=== PATIENT | female | born 1995 | race Two or more races ===

== ENCOUNTER 2020-07-22 05:06 | Emergency (ER) | payer OTHER, SELFPAY ==
[2020-07-22 05:12] VITALS: BP 115/72; PULSE 85; RESP 16; TEMP 36.9; O2SAT 99; BMI 23.8
--- NOTE | 2020-07-22 05:38 | ED_ITS ---
HPI - Nausea/Vomiting/Diarrhea General Chief complaint: Abdominal Pain Stated complaint: n/v/d Time Seen by Provider: 07/22/20 05:20 Source: patient Mode of arrival: EMS Limitations: no limitations History of Present Illness HPI Narrative: This is a 24-year-old female who presents via EMS for complaints of nausea, vomiting, diarrhea for the past 2 days and states she is currently on her menstrual period and denies any urinary pain/ burning /frequency, fevers, chills, shortness of breath, chest pain / palpitations. She does complain of suffering from anxiety. Related Data Allergies Allergy/AdvReac Type Severity Reaction Status Date / Time CHICKEN NUGGETS/PATTIES Allergy Mild HIVES Uncoded 06/04/20 16:12 CHEESE CAKE Allergy Unknown HIVES Uncoded 06/04/20 16:12 Review of Systems Review of Systems: Pertinent positives and negatives as stated in HPI 10 point review of systems is otherwise negative. PMFSH Past Medical History Source: nursing notes reviewed Medical History Anxiety Social History Social History Advance Directives: No Advance Directives Information Provided: No Physical Exam Vital Signs: Vital Signs: Vital Signs Temp Pulse Resp BP Pulse Ox 07/22/20 06:00 85 18 115/72 97 07/22/20 05:12 98.4 F 85 16 115/72 99 Body Mass Index 23.8 VITAL SIGNS: Reviewed. GENERAL: Well developed, well nourished, in no acute distress. HEAD: Normocephalic/atraumatic, EYES: PERRLA, EOMI intact without pain, no nystagmus/pallor/icterus noted EARS: Ext canals without abnormality, TMs non-bulging and non-erythematous NOSE: Nares patent bilateral OROPHARYNX: no oral lesions noted, posterior pharynx clear and non-erythematous without noted tonsillar enlargement/erythema/exudates NECK: Supple, no adenopathy LUNGS: Normal breath sounds. No adventitious sounds or accessory muscle use. SpO2<99> CARDIOVASCULAR: Regular rate and rhythm without noted murmurs, no JVD or lower extremity edema. ABDOMEN: Soft, non-tender, non-distended with bowel sounds. No rigidity. No guarding. No palpable masses or hernias noted MUSCULOSKELETAL: No tenderness, deformities, or effusions noted on gross inspection. EXTREMITIES: No cyanosis, clubbing or edema. SKIN: Inspection of the skin reveals no rashes, ulcerations, jaundice, pallor, or petechiae. NEUROLOGIC: Alert and oriented x 4. Strength and sensation to light touch were grossly intact x 4. Course Course Course Narrative: This is a 24-year-old female with history and clinical presentation consistent for possible gastroenteritis and doubt appendicitis, diverticulitis, cholecystitis. Will stain labs, urine , urinalysis and provide IV fluid resuscitation as well as antiemetics. On review of all investigations there are no acute findings and urine is negative as well as urinalysis being negative for infection. On re- evaluation patient states she is feeling better and is tolerating liquids and solids. MDM - Nausea/Vomiting/Diarrhea Lab Data Result diagrams: 07/22/20 05:47 07/22/20 05:47 Labs: Lab Results 07/22/20 07/22/20 07/22/20 Range/Units 05:47 05:47 05:47 WBC 3.5 L (4.8-10.8) X10*3/uL RBC 3.90 L (4.20-5.50) X10*6/uL Hgb 11.7 L (12.0-16.0) g/dl Hct 36.3 L (37-47) % MCV 93.1 (80-98) fL MCH 30.0 (27.0-33.0) pg MCHC 32.2 (31.0-35.0) g/dl RDW 14.3 (11.0-16.0) % Plt Count 222 (160-400) X10*3/uL MPV 10.7 (9.4-12.3) fL Immature Gran % (Auto) 0.3 (0.0-0.4) % Neut % (Auto) 45.7 (45-73) % Lymph % (Auto) 42.7 H (20-40) % [place] % (Auto) 8.1 (2-11) % Eos % (Auto) 2.3 (0-4) % Baso % (Auto) 0.9 (0-2) % Lymph # (Auto) 1.5 (1.2-4.9) X10*3/uL [place] # (Auto) 0.3 (0.1-1.2) X10*3/uL Eos # (Auto) 0.1 (0.0-0.4) X10*3/uL Baso # (Auto) 0.0 (0.0-0.2) X10*3/uL Abs Immat Gran (auto) 0.01 (0.00-0.03) X10*3/uL Absolute Neuts (auto) 1.6 L (2.0-8.3) X10*3/uL Absolute Nucleated RBC 0.000 (0.0-0.012) X10*3/uL Nucleated RBC % (auto) 0.0 (0.0-0.2) /100WBC Sodium 141 (135-145) mmol/L Potassium 3.8 (3.3-5.1) mmol/l Chloride 107 (96-108) mmol/L Carbon Dioxide 25 (22-29) mmol/L Anion Gap 13 (12-20) BUN 13 (9-16) mg/dL Creatinine 0.74 (0.5-1.4) mg/dL Estim Creat Clear Calc 103.6 Estimated GFR > 60 Random Glucose 95 (60-115) mg/dL Calcium 8.2 L (8.4-10.2) mg/dL Total Bilirubin 0.3 (0.0-1.0) mg/dL AST 15 (5-31) U/L ALT 13 (0-31) U/L Alkaline Phosphatase 42 (39-117) U/L Total Protein 6.6 (6.5-8.0) g/dL Albumin 4.1 (3.5-5.0) g/dL Urine Color YELLOW Urine Appearance HAZY Urine pH 6.0 (5.0-8.0) Ur Specific [place] >= 1.030 H (1.005-1.025) Urine Protein NEG (NEG-TRACE) MG/DL Urine Glucose (UA) NEG (NEG) MG/DL Urine Ketones NEG (NEG) MG/DL Urine Blood 2+ H (NEG) Urine Nitrite NEG (NEG) Ur Leukocyte Esterase NEG (NEG) Urine RBC 1-4 (0) /HPF Urine WBC 0-2 (0-4) /HPF Ur Squamous Epith Cells 1+ /LPF Urine Bacteria NONE /LPF Urine Mucus 2+ /LPF Urine Test NEGATIVE (NEGATIVE) Discharge Plan Discharge Clinical Impression: Gastroenteritis Patient Disposition: Home, Self-Care Instructions: Gastroenteritis (ED) Additional Instructions: 1. Increase fluid hydration especially with water. 2. Would recommend keeping to a bland diet for the next 24-48 hours. 3. Please follow-up with your primary care provider by calling the office today to set up an appointment for further evaluation. Referrals: Breana Jama MD [Primary Care Provider] - 2 days ( Episode of gastroenteritis)
--- NOTE | 2020-07-22 05:58 | PC.NURSE ---
PT TO ED VIA AMBULANCE WITH C/O LOWER ABD PAIN, NAUSEA, AND VOMITING X 2 DAYS. PT CHG INTO GOWN AND AWAITING MD'S EVAL.
[2020-07-22 06:00] VITALS: BP 115/72; PULSE 85; RESP 18; O2SAT 97
[2020-07-22 06:01] LABS: MANUAL DIFF FLAG NO
--- NOTE | 2020-07-22 06:01 | PC.NURSE ---
AT BEDSIDE. HL PLACED TO RAC, LABS DRAWN TO LAB AND PT UP TO RESTROOM FOR URINE SAMPLE TO LAB. PT ALERT, RESPIRATIONS EASY, N/L. SKIN W/D. PT IS NOT ACTIVELY VOMITING AT THIS TIME.
[2020-07-22 06:02] LABS: Basophils Percent Auto 0.9 % (0-2); Eosinophils Absolute Auto 0.1 X10*3/uL (0.0-0.4); Eosinophils Percent Auto 2.3 % (0-4); Hematocrit 36.3 % (37-47); Hemoglobin 11.7 g/dl (12.0-16.0); Imm Gran Abs Auto 0.01 X10*3/uL (0.00-0.03); Imm Gran Pct Auto 0.3 % (0.0-0.4); Lymphocytes Absolute Auto 1.5 X10*3/uL (1.2-4.9); Lymphocytes Percent Auto 42.7 % (20-40); Mean Corpuscular HGB Conc 32.2 g/dl (31.0-35.0); Mean Corpuscular Volume 93.1 fL (80-98); Mean Platelet Volume 10.7 fL (9.4-12.3); Monocytes Absolute Auto 0.3 X10*3/uL (0.1-1.2); Monocytes Percent Auto 8.1 % (2-11); Neutrophils Absolute Auto 1.6 X10*3/uL (2.0-8.3); Neutrophils Percent Auto 45.7 % (45-73); Platelet Count 222 X10*3/uL (160-400); Red Cell Distribution Width 14.3 % (11.0-16.0); White Blood Count 3.5 X10*3/uL (4.8-10.8)
[2020-07-22] MEDS: ondansetron HCL 4 MG/2 ML VIAL IVPUSH (06:11)
[2020-07-22] MEDS: 0.9 % Sodium Chloride 1,000 ML 1000 ML IV (06:11)
--- NOTE | 2020-07-22 06:15 | PC.NURSE ---
pt medicated with NS and zofran as per emar for nausea. will continue to monitor pt.
[2020-07-22 06:32] LABS: Glucose Urine UA NEG (NEG); Leukocyte Esterase Urine NEG (NEG); Nitrite Urine NEG (NEG); Specific Gravity - Urine >= 1.030 (1.005-1.025); Urine Blood 2+ (NEG); Urine Ketones NEG (NEG); Urine Protein NEG (NEG-TRACE)
[2020-07-22 06:43] LABS: Alanine Aminotransferase 13 U/L (0-31); Albumin Level 4.1 g/dL (3.5-5.0); Alkaline Phosphatase 42 U/L (39-117); Anion Gap 13 (12-20); Aspartate Amino Transferase 15 U/L (5-31); Bilirubin Total 0.3 mg/dL (0.0-1.0); Blood Urea Nitrogen 13 mg/dL (9-16); Calcium 8.2 mg/dL (8.4-10.2); Carbon Dioxide 25 mmol/L (22-29); Chloride 107 mmol/L (96-108); Creatinine Clr Calc Pharmacy 103.6; Estimated Glomerular Filt Rate > 60; Glucose Random 95 mg/dL (60-115); Potassium 3.8 mmol/l (3.3-5.1); Sodium 141 mmol/L (135-145); Total Protein 6.6 g/dL (6.5-8.0)
[2020-07-22 06:46] LABS: Appearance Urine HAZY; Color Urine YELLOW
[2020-07-22 06:47] LABS: Mucus Urine 2+ /LPF; Squamous Epithelial Cell Urine 1+ /LPF; WBC Urine 0-2 /HPF (0-4)
[2020-07-22 06:49] LABS: UPreg QC Valid YES; Urine Pregnancy NEGATIVE (NEGATIVE)
== END 2020-07-22 07:22 | disposition home or self-care (01) ==
PROVIDERS: Emergency Provider Student in an Organized Health Care Education/Training Program; PCP Internal Medicine
DX: K52.9 Noninfective gastroenteritis and colitis, unspecified (principal); R11.2 Nausea with vomiting, unspecified
CPT/HCPCS: 36415; 80053; 81001; 81003; 81025; 85025; 96361; 96374; 99284; J2405

== ENCOUNTER 2020-07-23 12:50 | Outpatient (REF) | payer OTHER, SELFPAY | END 2020-07-23 12:51 | disposition home or self-care (01) | LOC: HO.LAB 12:50 | PROVIDERS: Visit Provider Nurse Practitioner Family | DX: Z20.828 Contact with and (suspected) exposure to other viral communicable diseases (principal); R19.7 Diarrhea, unspecified; R11.2 Nausea with vomiting, unspecified | CPT/HCPCS: U0003 ==

== ENCOUNTER 2020-07-28 08:48 | Emergency (ER) | payer OTHER, SELFPAY ==
[2020-07-28 08:51] VITALS: BP 142/86; PULSE 100; RESP 16; TEMP 36.8; O2SAT 98; BMI 18.8
--- NOTE | 2020-07-28 08:56 | ED_ITS ---
HPI - Abdominal Pain General Chief Complaint: Abdominal Pain Stated Complaint: ABD PAIN Time Seen by Provider: 07/28/20 08:56 Source: patient Mode of arrival: EMS Limitations: no limitations History of Present Illness HPI narrative: Patient with abdominal pain that started 8 days ago, patient went to urgent care told she had GI bug, had a COVID that is negative, since then NVD and increasing pain MD elicited complaint: abdominal pain Onset (ago): week(s) Pain Consistency: intermittent Severity: moderate Quality: cramping Radiation: epigastric Exacerbating factors: eating Associated symptoms: nausea, vomiting and diarrhea Related Data Home Medications Medication Instructions Recorded Confirmed cyclobenzaprine 5 mg tablet 5 mg PO TID PRN 07/23/20 07/23/20 famotidine 20 mg tablet 20 mg PO BID 07/23/20 07/23/20 ibuprofen 600 mg tablet mg PO 07/23/20 07/23/20 levonorgestrel 0.15 mg-ethinyl tab PO 07/23/20 07/23/20 estradiol 30 mcg tablets,3 mos pack(91) omeprazole 20 mg capsule,delayed 20 mg PO DAILY 07/23/20 07/23/20 release ondansetron HCl 4 mg tablet 4 mg PO Q6H PRN 07/23/20 07/23/20 ondansetron HCl 8 mg tablet mg PO 07/23/20 07/23/20 Previous Rx's Medication Instructions Recorded ondansetron 4 mg disintegrating 4 mg PO Q6H PRN #60 tab 07/23/20 tablet pantoprazole [Protonix] 40 mg PO DAILY #20 tab 07/28/20 prochlorperazine maleate 10 mg PO TID PRN #10 tab 07/28/20 [Compazine] Allergies Allergy/AdvReac Type Severity Reaction Status Date / Time CHICKEN NUGGETS/PATTIES Allergy Mild HIVES Uncoded 07/23/20 11:14 CHEESE CAKE Allergy Unknown HIVES Uncoded 07/23/20 11:14 Review of Systems Constitutional: Reports no additional constitutional complaints Eyes: Reports no additional eye complaints Denies dizziness Cardiovascular: Reports no additional cardiovascular complaints Respiratory: Reports as per HPI Gastrointestinal: Reports no additional gastrointestinal complaints Genitourinary: Reports no additional female genitourinary complaints Musculoskeletal: Reports no additional musculoskeletal complaints Skin/Breast: Denies rash Reports system reviewed and no additional complaints, except as documented, Denies dizziness and Denies Sensory deficit (Neuro) Psychiatric: Denies anxiety Physical Exam Vital Signs: Vital Signs: Last Vital Signs Temp 98.2 F 07/28/20 08:51 Pulse 100 07/28/20 08:51 Resp 16 07/28/20 08:51 BP 142/86 H 07/28/20 08:51 Pulse Ox 98 07/28/20 08:51 Body Mass Index 18.8 Const: Other: anixious jumping in pain Nutritional Appearance: average body habitus Orientation/consciousness: oriented to person and patient oriented x3 Limitations: no limitations HENMT: Head: Yes normal to inspection Ears: external ears normal General nose exam: Normal external nose present Mouth: Normal oral and palatal mucosa present and oropharynx normal Throat: Yes posterior oropharynx normal Eyes: General: appearance normal, both eyes and all related structures Neck: Other: supple Neck: Yes normal visual inspection Chest: Chest palpation & inspection: normal inspection of the chest Resp: Auscultation: clear to auscultation bilaterally Cardio: Jugular venous distension: no JVD Rate: regular rate Rhythm: regular rhythm Heart sounds: S1 normal heart sound present and S2 normal heart sound present GI: Inspection: Yes normal to inspection Palpation (GI): Soft to palpation, nontender and No hepatosplenomegaly present Auscultation: normal bowel sounds : General: Yes no CVA tenderness Back/Spine/Pelvis: Back: no CVA tenderness Skin: General skin exam: no rashes or lesions noted Neuro: General: oriented to person and patient oriented x3 Cranial nerves: Yes CN's II-XII intact bilaterally Motor exam (neuro): 5/5 motor strength present throughout Sensory Exam: No Sensory deficit (Neuro) Extrem: General: Yes normal to inspection Psych: Appearance: grossly normal Course Course Course Narrative: resting comfortably will dc home MDM - Abdominal Pain MDM Narrative Medical decision making narrative: soft abdomen, non tender vomiting stopped will dc on zofran Differential Diagnosis Differential diagnosis: Likely gastritis Lab Data Result diagrams: 07/28/20 09:10 07/28/20 09:10 Labs: Lab Results 07/28/20 07/28/20 07/28/20 Range/Units 09:10 09:10 09:10 WBC 7.9 (4.8-10.8) X10*3/uL RBC 4.16 L (4.20-5.50) X10*6/uL Hgb 12.6 (12.0-16.0) g/dl Hct 38.5 (37-47) % MCV 92.5 (80-98) fL MCH 30.3 (27.0-33.0) pg MCHC 32.7 (31.0-35.0) g/dl RDW 13.8 (11.0-16.0) % Plt Count 235 (160-400) X10*3/uL MPV 10.7 (9.4-12.3) fL Immature Gran % (Auto) 0.1 (0.0-0.4) % Neut % (Auto) 83.5 H (45-73) % Lymph % (Auto) 12.5 L (20-40) % [place] % (Auto) 3.5 (2-11) % Eos % (Auto) 0.1 (0-4) % Baso % (Auto) 0.3 (0-2) % Lymph # (Auto) 1.0 L (1.2-4.9) X10*3/uL [place] # (Auto) 0.3 (0.1-1.2) X10*3/uL Eos # (Auto) 0.0 (0.0-0.4) X10*3/uL Baso # (Auto) 0.0 (0.0-0.2) X10*3/uL Abs Immat Gran (auto) 0.01 (0.00-0.03) X10*3/uL Absolute Neuts (auto) 6.6 (2.0-8.3) X10*3/uL Absolute Nucleated RBC 0.000 (0.0-0.012) X10*3/uL Nucleated RBC % (auto) 0.0 (0.0-0.2) /100WBC Sodium 140 (135-145) mmol/L Potassium 4.1 (3.3-5.1) mmol/l Chloride 105 (96-108) mmol/L Carbon Dioxide 24 (22-29) mmol/L Anion Gap 15 (12-20) BUN 12 (9-16) mg/dL Creatinine 0.80 (0.5-1.4) mg/dL Estim Creat Clear Calc 86.2 Estimated GFR > 60 Random Glucose 108 (60-115) mg/dL Calcium 9.4 D (8.4-10.2) mg/dL Total Bilirubin 0.5 (0.0-1.0) mg/dL Direct Bilirubin 0.2 (0.0-0.5) mg/dL AST 16 (5-31) U/L ALT 14 (0-31) U/L Alkaline Phosphatase 49 (39-117) U/L Total Protein 7.6 (6.5-8.0) g/dL Albumin 4.6 (3.5-5.0) g/dL Lipase 25 (8-78) U/L Urine Color Urine Appearance Urine pH (5.0-8.0) Ur Specific [place] (1.005-1.025) Urine Protein (NEG-TRACE) MG/DL Urine Glucose (UA) (NEG) MG/DL Urine Ketones (NEG) MG/DL Urine Blood (NEG) Urine Nitrite (NEG) Ur Leukocyte Esterase (NEG) Urine Test (NEGATIVE) 07/28/20 Range/Units 10:43 WBC (4.8-10.8) X10*3/uL RBC (4.20-5.50) X10*6/uL Hgb (12.0-16.0) g/dl Hct (37-47) % MCV (80-98) fL MCH (27.0-33.0) pg MCHC (31.0-35.0) g/dl RDW (11.0-16.0) % Plt Count (160-400) X10*3/uL MPV (9.4-12.3) fL Immature Gran % (Auto) (0.0-0.4) % Neut % (Auto) (45-73) % Lymph % (Auto) (20-40) % [place] % (Auto) (2-11) % Eos % (Auto) (0-4) % Baso % (Auto) (0-2) % Lymph # (Auto) (1.2-4.9) X10*3/uL [place] # (Auto) (0.1-1.2) X10*3/uL Eos # (Auto) (0.0-0.4) X10*3/uL Baso # (Auto) (0.0-0.2) X10*3/uL Abs Immat Gran (auto) (0.00-0.03) X10*3/uL Absolute Neuts (auto) (2.0-8.3) X10*3/uL Absolute Nucleated RBC (0.0-0.012) X10*3/uL Nucleated RBC % (auto) (0.0-0.2) /100WBC Sodium (135-145) mmol/L Potassium (3.3-5.1) mmol/l Chloride (96-108) mmol/L Carbon Dioxide (22-29) mmol/L Anion Gap (12-20) BUN (9-16) mg/dL Creatinine (0.5-1.4) mg/dL Estim Creat Clear Calc Estimated GFR Random Glucose (60-115) mg/dL Calcium (8.4-10.2) mg/dL Total Bilirubin (0.0-1.0) mg/dL Direct Bilirubin (0.0-0.5) mg/dL AST (5-31) U/L ALT (0-31) U/L Alkaline Phosphatase (39-117) U/L Total Protein (6.5-8.0) g/dL Albumin (3.5-5.0) g/dL Lipase (8-78) U/L Urine Color YELLOW Urine Appearance HAZY Urine pH 8.0 (5.0-8.0) Ur Specific [place] 1.020 (1.005-1.025) Urine Protein NEG (NEG-TRACE) MG/DL Urine Glucose (UA) NEG (NEG) MG/DL Urine Ketones 15 (NEG) MG/DL Urine Blood NEG (NEG) Urine Nitrite NEG (NEG) Ur Leukocyte Esterase NEG (NEG) Urine Test NEGATIVE (NEGATIVE) Discharge Plan Discharge Clinical Impression: Nausea & vomiting Patient Disposition: Home, Self-Care Instructions: Acute Nausea and Vomiting (ED) Prescriptions: New pantoprazole [Protonix] 40 mg tablet,delayed release (DR/EC) 40 mg PO DAILY Qty: 20 RF: 0 prochlorperazine maleate [Compazine] 10 mg tablet 10 mg PO TID PRN (Reason: nausea and vomiting) Qty: 10 RF: 0 No Action famotidine 20 mg tablet 20 mg PO BID RF: 0 ondansetron HCl 8 mg tablet PO RF: 0 cyclobenzaprine 5 mg tablet 5 mg PO TID PRN (Reason: muscle spasm) RF: 0 ibuprofen 600 mg tablet PO RF: 0 omeprazole 20 mg capsule,delayed release(DR/EC) 20 mg PO DAILY RF: 0 ondansetron HCl 4 mg tablet 4 mg PO Q6H PRN (Reason: nausea/vomiting) RF: 0 levonorgestrel-ethinyl estrad 0.15 mg-30 mcg (91) tablets,dose pack,3 month PO RF: 0 ondansetron 4 mg tablet,disintegrating 4 mg PO Q6H PRN (Reason: nausea and vomiting) Qty: 60 RF: 0 Referrals: Breana Jaam MD [Primary Care Provider] - 2 days [facility] Past Medical History Medical History (Updated 07/28/20 @ 11:10 by Liborio Saleh MD) Anxiety Surgical History (Updated 07/23/20 @ 11:56 by SHANAE Barillas) No pertinent past surgical history Family History Family History (Updated 07/23/20 @ 11:57 by SHANAE Barillas) Father Medical history unknown Mother Medical history unknown Social History Social History Alcohol intake: current Alcohol intake frequency: a few times a month Smoking Status: Never smoker Smoked in Last 30 Days: No Use of substances other than those prescribed or required for medical reasons: No Advance Directives: Yes Advance Directives Information Provided: No Advance Directives on File: No
[2020-07-28 09:15] LABS: MANUAL DIFF FLAG NO
[2020-07-28 09:18] LABS: Basophils Percent Auto 0.3 % (0-2); Eosinophils Percent Auto 0.1 % (0-4); Hematocrit 38.5 % (37-47); Hemoglobin 12.6 g/dl (12.0-16.0); Imm Gran Abs Auto 0.01 X10*3/uL (0.00-0.03); Imm Gran Pct Auto 0.1 % (0.0-0.4); Lymphocytes Percent Auto 12.5 % (20-40); Mean Corpuscular HGB Conc 32.7 g/dl (31.0-35.0); Mean Corpuscular Hemoglobin 30.3 pg (27.0-33.0); Mean Corpuscular Volume 92.5 fL (80-98); Mean Platelet Volume 10.7 fL (9.4-12.3); Monocytes Absolute Auto 0.3 X10*3/uL (0.1-1.2); Monocytes Percent Auto 3.5 % (2-11); Neutrophils Absolute Auto 6.6 X10*3/uL (2.0-8.3); Neutrophils Percent Auto 83.5 % (45-73); Platelet Count 235 X10*3/uL (160-400); Red Blood Count 4.16 X10*6/uL (4.20-5.50); Red Cell Distribution Width 13.8 % (11.0-16.0); White Blood Count 7.9 X10*3/uL (4.8-10.8)
[2020-07-28] MEDS: 0.9 % Sodium Chloride 500 ML 999 ML IVCONT (09:20)
[2020-07-28] MEDS: Pantoprazole Sodium 40 MG/10 ML VIAL IVPUSH (09:23)
[2020-07-28] MEDS: Ketorolac Tromethamine 30 MG/ML VIAL IVPUSH (09:23)
[2020-07-28] MEDS: ondansetron HCL 4 MG/2 ML VIAL IVPUSH (09:23)
[2020-07-28 09:40] LABS: Lipase 25 U/L (8-78)
[2020-07-28 09:42] LABS: Alanine Aminotransferase 14 U/L (0-31); Albumin Level 4.6 g/dL (3.5-5.0); Alkaline Phosphatase 49 U/L (39-117); Anion Gap 15 (12-20); Aspartate Amino Transferase 16 U/L (5-31); Bilirubin Direct 0.2 mg/dL (0.0-0.5); Bilirubin Total 0.5 mg/dL (0.0-1.0); Blood Urea Nitrogen 12 mg/dL (9-16); Calcium 9.4 mg/dL (8.4-10.2); Carbon Dioxide 24 mmol/L (22-29); Chloride 105 mmol/L (96-108); Creatinine Clr Calc Pharmacy 86.2; Estimated Glomerular Filt Rate > 60; Glucose Random 108 mg/dL (60-115); Potassium 4.1 mmol/l (3.3-5.1); Sodium 140 mmol/L (135-145); Total Protein 7.6 g/dL (6.5-8.0)
[2020-07-28 10:51] LABS: Glucose Urine UA NEG (NEG); Leukocyte Esterase Urine NEG (NEG); Nitrite Urine NEG (NEG); Urine Blood NEG (NEG); Urine Ketones 15 MG/DL (NEG); Urine Protein NEG (NEG-TRACE)
[2020-07-28 10:54] LABS: Appearance Urine HAZY; Color Urine YELLOW; UPreg QC Valid YES; Urine Pregnancy NEGATIVE (NEGATIVE)
== END 2020-07-28 11:30 | disposition home or self-care (01) ==
PROVIDERS: Emergency Provider Emergency Medicine; PCP Internal Medicine
DX: R10.13 Epigastric pain (principal); R11.2 Nausea with vomiting, unspecified; Z79.899 Other long term (current) drug therapy
CPT/HCPCS: 36415; 80048; 80076; 81003; 81025; 83690; 85025; 96374; 96375; 99284; J1885; J2405

== ENCOUNTER 2020-07-29 07:08 | Emergency (ER) | payer OTHER, SELFPAY ==
--- NOTE | 2020-07-29 07:17 | ED_ITS ---
HPI - Dizziness General Chief Complaint: Nausea/Vomiting/Diarrhea Stated Complaint: DIZZY Time Seen by Provider: 07/29/20 07:17 Source: patient, EMS and old records reviewed Mode of arrival: EMS Limitations: no limitations History of Present Illness HPI Narrative: 24 yo female here with n/v and upper abominal pain that responds to heat - smokes THC at night just seen for same here with increased pain and vomiting MD elicited complaint: lightheadedness Onset (ago): day(s) (2) Timing: sudden onset Severity: moderate Description: lightheadedness History of similar symptoms: Yes Exacerbating factors: standing Relieving factors: nothing Associated symptoms: nausea, vomiting, malaise and weakness Related Data Home Medications Medication Instructions Recorded Confirmed cyclobenzaprine 5 mg tablet 5 mg PO TID PRN 07/23/20 07/23/20 famotidine 20 mg tablet 20 mg PO BID 07/23/20 07/23/20 ibuprofen 600 mg tablet mg PO 07/23/20 07/23/20 levonorgestrel 0.15 mg-ethinyl tab PO 07/23/20 07/23/20 estradiol 30 mcg tablets,3 mos pack(91) omeprazole 20 mg capsule,delayed 20 mg PO DAILY 07/23/20 07/23/20 release ondansetron HCl 4 mg tablet 4 mg PO Q6H PRN 07/23/20 07/23/20 ondansetron HCl 8 mg tablet mg PO 07/23/20 07/23/20 Previous Rx's Medication Instructions Recorded ondansetron 4 mg disintegrating 4 mg PO Q6H PRN #60 tab 07/23/20 tablet pantoprazole [Protonix] 40 mg PO DAILY #20 tab 07/28/20 prochlorperazine maleate 10 mg PO TID PRN #10 tab 07/28/20 [Compazine] ondansetron 4 mg PO Q8H PRN #20 tab 07/29/20 promethazine 25 mg MI Q6H PRN #12 ea 07/29/20 Allergies Allergy/AdvReac Type Severity Reaction Status Date / Time CHICKEN NUGGETS/PATTIES Allergy Mild HIVES Uncoded 07/23/20 11:14 CHEESE CAKE Allergy Unknown HIVES Uncoded 07/23/20 11:14 Review of Systems Review of Systems: Constitutional : No Weight loss, No Fever, No Chills ENT/Mouth : No sore throat, No Rhinorrhea Eyes: No Swelling, No Redness Cardiovascular : No Chest Pain, No SOB, NoEdema Respiratory : No Cough, No Sputum, No Wheezing Gastrointestinal : Positive Nausea, Positive Vomiting, no Diarrhea, positive abdominal Pain, No Hematochezia, No Melena Genitourinary : No Dysuria, No Urinary Frequency, No Hematuria, No Urgency Musculoskeletal : No joint pain, No Myalgias, No Joint Swelling Skin : No Skin Lesions, No rash Neuro : No Weakness, No Numbness, No Dizziness, No Headache Psych : No Anxiety/Panic, No Depression Heme/Lymph: No Bruising, No Lymphadenopathy Endocrine : No Polyuria, No Polydipsia All other systems reviewed and are negative. [facility] Past Medical History Attestation statement: The following information was validated with the patient. Medical History (Updated 07/29/20 @ 09:37 by Gisel Barahona DO) Anxiety Gastritis Surgical History (Updated 07/23/20 @ 11:56 by SHANAE Barillas) No pertinent past surgical history Family History Family History (Updated 07/23/20 @ 11:57 by SHANAE Barillas) Father Medical history unknown Mother Medical history unknown Social History Social History (Updated 07/29/20 @ 07:49 by Gisel Barahona DO) Alcohol intake: current Alcohol intake frequency: does not drink Smoking Status: Never smoker Smoked in Last 30 Days: No Use of substances other than those prescribed or required for medical reasons: Yes Substance Use Type: Marijuana Substance Use Type Other:: daily Substance Use Frequency: Chronic Longstanding Last Used Substance: Hours (ago) Any prior treatment program specific to substance use: No Advance Directives: No Advance Directives Information Provided: Yes Physical Exam Vital Signs: Vital Signs: Last Vital Signs Temp 98.6 F 07/29/20 07:20 Pulse 75 07/29/20 09:01 Resp 20 07/29/20 09:01 BP 108/64 07/29/20 09:01 Pulse Ox 98 07/29/20 07:20 Body Mass Index 18.8 Appearance: Alert. Oriented X3. No acute distress. Eyes: Pupils equal, round and reactive to light. ENT: Pharynx dry MM Neck: Normal inspection. Neck supple. CVS: Normal heart rate and rhythm. Pulses normal. Respiratory: No respiratory distress. Breath sounds normal. Abdomen: Soft and mild epigastric ttp Skin: Skin warm and dry. Normal skin color. Normal skin turgor. Extremities: No lower extremity edema. No calf ttp Neuro: Oriented X 3. No motor deficit. No sensory deficit. 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 Lab Data Result diagrams: 07/29/20 07:31 07/29/20 07:31 Labs: Lab Results 07/29/20 07/29/20 07/29/20 Range/Units 07:31 07:31 07:31 WBC 9.5 (4.8-10.8) X10*3/uL RBC 3.98 L (4.20-5.50) X10*6/uL Hgb 12.2 (12.0-16.0) g/dl Hct 37.1 (37-47) % MCV 93.2 (80-98) fL MCH 30.7 (27.0-33.0) pg MCHC 32.9 (31.0-35.0) g/dl RDW 13.9 (11.0-16.0) % Plt Count 206 (160-400) X10*3/uL MPV 10.9 (9.4-12.3) fL Immature Gran % (Auto) 0.3 (0.0-0.4) % Neut % (Auto) 85.0 H (45-73) % Lymph % (Auto) 10.3 L (20-40) % [place] % (Auto) 4.0 (2-11) % Eos % (Auto) 0.1 (0-4) % Baso % (Auto) 0.3 (0-2) % Lymph # (Auto) 1.0 L (1.2-4.9) X10*3/uL [place] # (Auto) 0.4 (0.1-1.2) X10*3/uL Eos # (Auto) 0.0 (0.0-0.4) X10*3/uL Baso # (Auto) 0.0 (0.0-0.2) X10*3/uL Abs Immat Gran (auto) 0.03 (0.00-0.03) X10*3/uL Absolute Neuts (auto) 8.1 (2.0-8.3) X10*3/uL Absolute Nucleated RBC 0.000 (0.0-0.012) X10*3/uL Nucleated RBC % (auto) 0.0 (0.0-0.2) /100WBC Hold Blue Top SEE NOTE Sodium 140 (135-145) mmol/L Potassium 4.1 (3.3-5.1) mmol/l Chloride 107 (96-108) mmol/L Carbon Dioxide 25 (22-29) mmol/L Anion Gap 12 (12-20) BUN 11 (9-16) mg/dL Creatinine 0.75 (0.5-1.4) mg/dL Estim Creat Clear Calc 92.1 Estimated GFR > 60 Random Glucose 102 (60-115) mg/dL Calcium 9.1 (8.4-10.2) mg/dL Total Bilirubin (0.0-1.0) mg/dL Direct Bilirubin (0.0-0.5) mg/dL AST (5-31) U/L ALT (0-31) U/L Alkaline Phosphatase (39-117) U/L Total Protein (6.5-8.0) g/dL Albumin (3.5-5.0) g/dL Lipase (8-78) U/L 07/29/20 Range/Units 07:31 WBC (4.8-10.8) X10*3/uL RBC (4.20-5.50) X10*6/uL Hgb (12.0-16.0) g/dl Hct (37-47) % MCV (80-98) fL MCH (27.0-33.0) pg MCHC (31.0-35.0) g/dl RDW (11.0-16.0) % Plt Count (160-400) X10*3/uL MPV (9.4-12.3) fL Immature Gran % (Auto) (0.0-0.4) % Neut % (Auto) (45-73) % Lymph % (Auto) (20-40) % [place] % (Auto) (2-11) % Eos % (Auto) (0-4) % Baso % (Auto) (0-2) % Lymph # (Auto) (1.2-4.9) X10*3/uL [place] # (Auto) (0.1-1.2) X10*3/uL Eos # (Auto) (0.0-0.4) X10*3/uL Baso # (Auto) (0.0-0.2) X10*3/uL Abs Immat Gran (auto) (0.00-0.03) X10*3/uL Absolute Neuts (auto) (2.0-8.3) X10*3/uL Absolute Nucleated RBC (0.0-0.012) X10*3/uL Nucleated RBC % (auto) (0.0-0.2) /100WBC Hold Blue Top Sodium (135-145) mmol/L Potassium (3.3-5.1) mmol/l Chloride (96-108) mmol/L Carbon Dioxide (22-29) mmol/L Anion Gap (12-20) BUN (9-16) mg/dL Creatinine (0.5-1.4) mg/dL Estim Creat Clear Calc Estimated GFR Random Glucose (60-115) mg/dL Calcium (8.4-10.2) mg/dL Total Bilirubin 0.3 (0.0-1.0) mg/dL Direct Bilirubin 0.2 (0.0-0.5) mg/dL AST 15 (5-31) U/L ALT 15 (0-31) U/L Alkaline Phosphatase 44 (39-117) U/L Total Protein 6.8 (6.5-8.0) g/dL Albumin 4.3 (3.5-5.0) g/dL Lipase 25 (8-78) U/L Discharge Plan Discharge Clinical Impression: Nausea & vomiting, Cyclical vomiting Patient Disposition: Home, Self-Care Additional Instructions: return to ED for any worsening symptoms or concerns STOP SMOKING MARIJUANA 1. Ill-defined hypoattenuation in the uterine myometrium of the hnj-[id number] uterus and cervix. This is new as compared to previous. The previously noted discrete marginated lesion in the lower uterine segment is not evident in today's study. Etiology of the above findings are uncertain. This can be further evaluated with ultrasound. LIKELY RELATED TO YOUR FIBROIDS PLEASE FOLLOW UP WITH YOUR OBGYN Prescriptions: New ondansetron 4 mg tablet,disintegrating 4 mg PO Q8H PRN (Reason: nausea and vomiting) Qty: 20 RF: 0 promethazine 25 mg suppository 25 mg MI Q6H PRN (Reason: nausea and vomiting) Qty: 12 RF: 0 No Action pantoprazole [Protonix] 40 mg tablet,delayed release (DR/EC) 40 mg PO DAILY Qty: 20 RF: 0 prochlorperazine maleate [Compazine] 10 mg tablet 10 mg PO TID PRN (Reason: nausea and vomiting) Qty: 10 RF: 0 famotidine 20 mg tablet 20 mg PO BID RF: 0 ondansetron HCl 8 mg tablet PO RF: 0 cyclobenzaprine 5 mg tablet 5 mg PO TID PRN (Reason: muscle spasm) RF: 0 ibuprofen 600 mg tablet PO RF: 0 omeprazole 20 mg capsule,delayed release(DR/EC) 20 mg PO DAILY RF: 0 ondansetron HCl 4 mg tablet 4 mg PO Q6H PRN (Reason: nausea/vomiting) RF: 0 levonorgestrel-ethinyl estrad 0.15 mg-30 mcg (91) tablets,dose pack,3 month PO RF: 0 ondansetron 4 mg tablet,disintegrating 4 mg PO Q6H PRN (Reason: nausea and vomiting) Qty: 60 RF: 0 Referrals: Physician,Unknown [Primary Care Provider] - 2 days (if not better) Stand Alone Forms: Work/School Release
[2020-07-29 07:20] VITALS: BP 100/64; PULSE 83; RESP 14; TEMP 37; O2SAT 98; BMI 18.8
--- NOTE | 2020-07-29 07:22 | CT_ITS ---
EXAMINATION: CT ABDOMEN AND PELVIS WITH CONTRAST CLINICAL INFORMATION: Pain and vomiting. COMPARISON: 06/10/2019 TECHNIQUE: Multidetector volumetric images were obtained from the superior aspect of the liver through the pubic symphysis following administration 85 mL of Omnipaque 350 intravenous contrast. Sagittal and coronal reformatted images were obtained on the technologist's workstation. Oral contrast: No This CT examination was performed using dose optimization techniques as appropriate, variously including the following: *Automated exposure control *Adjustment of mA and/or kV according to patient size (this includes techniques or standardized protocols for targeted exams where dose is matched to indication/reason for exam; i.e. extremities or head) *Use of iterative reconstruction technique DLP: 341 mGy-cm FINDINGS: LUNG BASES: The visualized lung bases are unremarkable. LIVER, GALLBLADDER, AND BILIARY TREE: Normal enhancement. No focal lesions are seen. There is a minimal intrahepatic biliary duct prominence, appearing similar as compared to previous. The CBD is not dilated. The gallbladder is unremarkable with no evidence of radiopaque gallstones, gallbladder wall thickening, or obvious pericholecystic inflammatory changes. PANCREAS: Unremarkable. SPLEEN: Unremarkable. ADRENAL GLANDS: Unremarkable. KIDNEYS AND URETERS: The kidneys are normal in size, shape, and attenuation. No hydronephrosis, hydroureter, or calculi seen. No perinephric stranding. Few small hypodense lesions in the left kidney, stable from previous, too small to characterize. BLADDER: Unremarkable. GASTROINTESTINAL TRACT: There is a submucosal prominence and apparent wall thickening of the ascending colon and transverse colon. This may be related to lack of distention, or could represent the colitis perhaps from infectious inflammatory process. The large colon is not dilated. No dilated small bowel loops are seen. The stomach is non distended limiting evaluation. No ascites. No free air. The appendix is unremarkable. ABDOMINAL WALL: No significant hernia. LYMPH NODES: No pathologically enlarged lymph nodes are seen. VASCULAR: Normal caliber aorta. PELVIC VISCERA: There is ill-defined hypoattenuation in the uterine myometrium of the mid to lower uterus, and cervix. This is of indeterminate etiology. The previous study demonstrated a hypodense lesion in the lower uterine segment, not clearly visualized in today's study. The ovaries grossly appear within normal limits. No free fluid. OSSEOUS STRUCTURES: Unremarkable. CT/CT abdomen pelvis w con IMPRESSION: 1. Ill-defined hypoattenuation in the uterine myometrium of the [id number] uterus and cervix. This is new as compared to previous. The previously noted discrete marginated lesion in the lower uterine segment is not evident in today's study. Etiology of the above findings are uncertain. This can be further evaluated with ultrasound. 2. Mild intrahepatic biliary duct prominence, appearing similar as compared to previous. CBD is not dilated. Correlate with liver function tests. 3. Appendix appears unremarkable.
[2020-07-29 07:36] LABS: MANUAL DIFF FLAG NO
[2020-07-29 07:38] LABS: Basophils Percent Auto 0.3 % (0-2); Eosinophils Percent Auto 0.1 % (0-4); Hematocrit 37.1 % (37-47); Hemoglobin 12.2 g/dl (12.0-16.0); Imm Gran Abs Auto 0.03 X10*3/uL (0.00-0.03); Imm Gran Pct Auto 0.3 % (0.0-0.4); Lymphocytes Percent Auto 10.3 % (20-40); Mean Corpuscular HGB Conc 32.9 g/dl (31.0-35.0); Mean Corpuscular Hemoglobin 30.7 pg (27.0-33.0); Mean Corpuscular Volume 93.2 fL (80-98); Mean Platelet Volume 10.9 fL (9.4-12.3); Monocytes Absolute Auto 0.4 X10*3/uL (0.1-1.2); Neutrophils Absolute Auto 8.1 X10*3/uL (2.0-8.3); Platelet Count 206 X10*3/uL (160-400); Red Blood Count 3.98 X10*6/uL (4.20-5.50); Red Cell Distribution Width 13.9 % (11.0-16.0); White Blood Count 9.5 X10*3/uL (4.8-10.8)
[2020-07-29] MEDS: 0.9 % Sodium Chloride 1,000 ML 999 ML IVCONT (07:39)
[2020-07-29] MEDS: diphenhydrAMINE HCL 50 MG/ML VIAL 25 MG IVPUSH (07:39)
[2020-07-29] MEDS: Metoclopramide HCl 10 MG/2 ML VIAL 5 MG IVPUSH (07:40)
[2020-07-29 08:05] LABS: Anion Gap 12 (12-20); Blood Urea Nitrogen 11 mg/dL (9-16); Calcium 9.1 mg/dL (8.4-10.2); Carbon Dioxide 25 mmol/L (22-29); Chloride 107 mmol/L (96-108); Creatinine Clr Calc Pharmacy 92.1; Estimated Glomerular Filt Rate > 60; Glucose Random 102 mg/dL (60-115); Potassium 4.1 mmol/l (3.3-5.1); Sodium 140 mmol/L (135-145)
[2020-07-29 08:06] LABS: Alanine Aminotransferase 15 U/L (0-31); Albumin Level 4.3 g/dL (3.5-5.0); Alkaline Phosphatase 44 U/L (39-117); Aspartate Amino Transferase 15 U/L (5-31); Bilirubin Direct 0.2 mg/dL (0.0-0.5); Bilirubin Total 0.3 mg/dL (0.0-1.0); Lipase 25 U/L (8-78); Total Protein 6.8 g/dL (6.5-8.0)
[2020-07-29] MEDS: iohexoL 350 MG/ML 100 ML INFUS..BTL IV (08:42)
[2020-07-29 09:01] VITALS: BP 108/64; PULSE 75; RESP 20
== END 2020-07-29 09:52 | disposition home or self-care (01) ==
PROVIDERS: Emergency Provider Emergency Medicine
DX: R11.15 Cyclical vomiting syndrome unrelated to migraine (principal); R42 Dizziness and giddiness; R10.10 Upper abdominal pain, unspecified; F12.90 Cannabis use, unspecified, uncomplicated; Z79.899 Other long term (current) drug therapy
CPT/HCPCS: 36415; 74177; 80048; 80076; 83690; 85025; 96361; 96374; 96375; 99284; J1200; J2765; Q9967

== ENCOUNTER 2020-07-30 04:22 | Emergency (ER) | payer OTHER, SELFPAY ==
[2020-07-30 04:24] VITALS: BP 147/108; PULSE 90; RESP 20; TEMP 36.5; O2SAT 99; BMI 18.8
--- NOTE | 2020-07-30 05:00 | PC.NURSE ---
PT TO ROOM WITH C/O NAUSEA AND VOMITING SINCE MONDAY. PT IS RETCHING LOUDLY AND SPITTING INTO EMESIS BAG. PT STATES IM JUST DONT FEEL GOOD. MD AT BEDSIDE FOR EVAL. PT ARRIVES ALERT, RESPIRATIONS EASY, N/L. SKIN W/D. HL PLACED, LABS DRAWN TO LAB, AND PT MEDICATED PER EMAR FOR NAUSEATED.
[2020-07-30] MEDS: 0.9 % Sodium Chloride 1,000 ML 999 ML IVCONT (05:40)
[2020-07-30 05:52] LABS: MANUAL DIFF FLAG NO
[2020-07-30 05:53] LABS: Basophils Percent Auto 0.4 % (0-2); Eosinophils Percent Auto 0.4 % (0-4); Hematocrit 37.2 % (37-47); Hemoglobin 12.1 g/dl (12.0-16.0); Imm Gran Abs Auto 0.02 X10*3/uL (0.00-0.03); Imm Gran Pct Auto 0.2 % (0.0-0.4); Lymphocytes Absolute Auto 1.6 X10*3/uL (1.2-4.9); Mean Corpuscular HGB Conc 32.5 g/dl (31.0-35.0); Mean Corpuscular Hemoglobin 30.1 pg (27.0-33.0); Mean Corpuscular Volume 92.5 fL (80-98); Mean Platelet Volume 10.7 fL (9.4-12.3); Monocytes Absolute Auto 0.6 X10*3/uL (0.1-1.2); Monocytes Percent Auto 6.1 % (2-11); Neutrophils Percent Auto 75.9 % (45-73); Platelet Count 204 X10*3/uL (160-400); Red Blood Count 4.02 X10*6/uL (4.20-5.50); Red Cell Distribution Width 13.9 % (11.0-16.0); White Blood Count 9.2 X10*3/uL (4.8-10.8)
[2020-07-30 06:00] VITALS: BP 119/72; PULSE 91; RESP 16; O2SAT 97
[2020-07-30 06:23] LABS: Alanine Aminotransferase 13 U/L (0-31); Albumin Level 4.3 g/dL (3.5-5.0); Alkaline Phosphatase 45 U/L (39-117); Anion Gap 16 (12-20); Aspartate Amino Transferase 13 U/L (5-31); Bilirubin Direct 0.2 mg/dL (0.0-0.5); Bilirubin Total 0.4 mg/dL (0.0-1.0); Blood Urea Nitrogen 9 mg/dL (9-16); Carbon Dioxide 23 mmol/L (22-29); Chloride 107 mmol/L (96-108); Creatinine Clr Calc Pharmacy 93.2; Estimated Glomerular Filt Rate > 60; Glucose Random 106 mg/dL (60-115); Lipase 34 U/L (8-78); Potassium 3.7 mmol/l (3.3-5.1); Sodium 142 mmol/L (135-145)
--- NOTE | 2020-07-30 06:47 | ED_ITS ---
HPI - Nausea/Vomiting/Diarrhea General Chief complaint: Nausea/Vomiting/Diarrhea Stated complaint: Abd pain Time Seen by Provider: 07/30/20 05:05 Source: patient Mode of arrival: ambulatory Limitations: no limitations History of Present Illness HPI Narrative: patient comes in complaining of cyclic vomiting. Patient states that she has been vomiting for 7 days straight, patient stating that she will stop smoking marijuana because she does not want to go through this all over again. MD elicited complaint: nausea and vomiting Related Data Home Medications Medication Instructions Recorded Confirmed cyclobenzaprine 5 mg tablet 5 mg PO TID PRN 07/23/20 07/23/20 famotidine 20 mg tablet 20 mg PO BID 07/23/20 07/23/20 ibuprofen 600 mg tablet mg PO 07/23/20 07/23/20 levonorgestrel 0.15 mg-ethinyl tab PO 07/23/20 07/23/20 estradiol 30 mcg tablets,3 mos pack(91) omeprazole 20 mg capsule,delayed 20 mg PO DAILY 07/23/20 07/23/20 release ondansetron HCl 4 mg tablet 4 mg PO Q6H PRN 07/23/20 07/23/20 ondansetron HCl 8 mg tablet mg PO 07/23/20 07/23/20 Previous Rx's Medication Instructions Recorded ondansetron 4 mg disintegrating 4 mg PO Q6H PRN #60 tab 07/23/20 tablet pantoprazole [Protonix] 40 mg PO DAILY #20 tab 07/28/20 prochlorperazine maleate 10 mg PO TID PRN #10 tab 07/28/20 [Compazine] ondansetron 4 mg PO Q8H PRN #20 tab 07/29/20 promethazine 25 mg [place] Q6H PRN #12 ea 07/29/20 metoclopramide HCl [Reglan] 5 mg PO Q6H PRN #14 tab 07/30/20 Allergies Allergy/AdvReac Type Severity Reaction Status Date / Time CHICKEN NUGGETS/PATTIES Allergy Mild HIVES Uncoded 07/23/20 11:14 CHEESE CAKE Allergy Unknown HIVES Uncoded 07/23/20 11:14 Review of Systems Review of Systems: Constitutional : No Weight loss, No Fever, No Chills, No Night Sweats, No Fatigue, No Malaise ENT/Mouth : No Hearing loss, No Ear Pain, No Nasal Congestion, No Sinus Pain, No Hoarseness, No sore throat, No Rhinorrhea, No Swallowing Difficulty Eyes: No Eye Pain, No Swelling, No Redness, No Foreign Body, No Discharge, No Vision Changes Cardiovascular : No Chest Pain, No SOB, No Dyspnea on Exertion, No Orthopnea, No Edema, No Palpitations Respiratory : No Cough, No Sputum, No Wheezing, No Smoke Exposure, No Dyspnea Gastrointestinal : Patient complaining of nausea vomiting, abdominal cramping Genitourinary : no irregular bleeding, No Dysuria, No Urinary Frequency, No Hematuria, No Urinary Incontinence, No Urgency, No Flank Pain, No Urinary Flow Changes, No Hesitancy Musculoskeletal : No joint pain, No Myalgias, No Joint Swelling Skin : No Skin Lesions, No rash Neuro : No Weakness, No Numbness, No Paresthesias, No Loss of Consciousness, No Dizziness, No Headache Psych : No Anxiety/Panic, No Depression, No SI/HI/AH/VH, No Social Issues, Heme/Lymph: No Bruising, No Bleeding,No Lymphadenopathy Endocrine : No Polyuria, No Polydipsia, No Temperature Intolerance [facility] Past Medical History Medical History (Updated 07/30/20 @ 07:14 by Briana Salazar MD) Anxiety Cyclical vomiting Gastritis Surgical History (Updated 07/23/20 @ 11:56 by SHANAE Barillas) No pertinent past surgical history Family History Family History (Updated 07/23/20 @ 11:57 by SHANAE Barillas) Father Medical history unknown Mother Medical history unknown Social History Social History (Updated 07/29/20 @ 07:49 by Gisel Barahona DO) Alcohol intake: current Alcohol intake frequency: does not drink Smoking Status: Never smoker Smoked in Last 30 Days: No Use of substances other than those prescribed or required for medical reasons: Yes Substance Use Type: Marijuana Substance Use Frequency: Daily Last Used Substance: Days (ago) Advance Directives: No Advance Directives Information Provided: No Physical Exam Vital Signs: Vital Signs: Last Vital Signs Temp 97.7 F 07/30/20 04:24 Pulse 91 07/30/20 06:00 Resp 16 07/30/20 06:00 BP 119/72 07/30/20 06:00 Pulse Ox 97 07/30/20 06:00 Body Mass Index 18.8 Course Course Course Narrative: at this time, patient no longer vomiting. Shortly patient will be p.o. challenged, if patient is able to tolerate p.o., patient may be discharged. Sign-out given to Dr. Brooklyn LAWSON - Nausea/Vomiting/Diarrhea Lab Data Result diagrams: 07/30/20 05:28 07/30/20 05:28 Labs: Lab Results 07/30/20 07/30/20 Range/Units 05:28 05:28 WBC 9.2 (4.8-10.8) X10*3/uL RBC 4.02 L (4.20-5.50) X10*6/uL Hgb 12.1 (12.0-16.0) g/dl Hct 37.2 (37-47) % MCV 92.5 (80-98) fL MCH 30.1 (27.0-33.0) pg MCHC 32.5 (31.0-35.0) g/dl RDW 13.9 (11.0-16.0) % Plt Count 204 (160-400) X10*3/uL MPV 10.7 (9.4-12.3) fL Immature Gran % (Auto) 0.2 (0.0-0.4) % Neut % (Auto) 75.9 H (45-73) % Lymph % (Auto) 17.0 L (20-40) % [place] % (Auto) 6.1 (2-11) % Eos % (Auto) 0.4 (0-4) % Baso % (Auto) 0.4 (0-2) % Lymph # (Auto) 1.6 (1.2-4.9) X10*3/uL [place] # (Auto) 0.6 (0.1-1.2) X10*3/uL Eos # (Auto) 0.0 (0.0-0.4) X10*3/uL Baso # (Auto) 0.0 (0.0-0.2) X10*3/uL Abs Immat Gran (auto) 0.02 (0.00-0.03) X10*3/uL Absolute Neuts (auto) 7.0 (2.0-8.3) X10*3/uL Absolute Nucleated RBC 0.000 (0.0-0.012) X10*3/uL Nucleated RBC % (auto) 0.0 (0.0-0.2) /100WBC Sodium 142 (135-145) mmol/L Potassium 3.7 (3.3-5.1) mmol/l Chloride 107 (96-108) mmol/L Carbon Dioxide 23 (22-29) mmol/L Anion Gap 16 (12-20) BUN 9 (9-16) mg/dL Creatinine 0.74 (0.5-1.4) mg/dL Estim Creat Clear Calc 93.2 Estimated GFR > 60 Random Glucose 106 (60-115) mg/dL Calcium 9.0 (8.4-10.2) mg/dL Total Bilirubin 0.4 (0.0-1.0) mg/dL Direct Bilirubin 0.2 (0.0-0.5) mg/dL AST 13 (5-31) U/L ALT 13 (0-31) U/L Alkaline Phosphatase 45 (39-117) U/L Total Protein 7.0 (6.5-8.0) g/dL Albumin 4.3 (3.5-5.0) g/dL Lipase 34 (8-78) U/L Discharge Plan Discharge Clinical Impression: Cyclical vomiting Patient Disposition: Home, Self-Care Instructions: Cyclic Vomiting Syndrome (ED) Additional Instructions: please stop using marijuana. Please follow-up with your primary care physician tomorrow. If you have any worsening or new symptoms, please return to the emergency room or call 911 Prescriptions: New metoclopramide HCl [Reglan] 5 mg tablet 5 mg PO Q6H PRN (Reason: nausea and vomiting) Qty: 14 RF: 0 No Action pantoprazole [Protonix] 40 mg tablet,delayed release (DR/EC) 40 mg PO DAILY Qty: 20 RF: 0 prochlorperazine maleate [Compazine] 10 mg tablet 10 mg PO TID PRN (Reason: nausea and vomiting) Qty: 10 RF: 0 ondansetron 4 mg tablet,disintegrating 4 mg PO Q8H PRN (Reason: nausea and vomiting) Qty: 20 RF: 0 promethazine 25 mg suppository 25 mg NC Q6H PRN (Reason: nausea and vomiting) Qty: 12 RF: 0 famotidine 20 mg tablet 20 mg PO BID RF: 0 ondansetron HCl 8 mg tablet PO RF: 0 cyclobenzaprine 5 mg tablet 5 mg PO TID PRN (Reason: muscle spasm) RF: 0 ibuprofen 600 mg tablet PO RF: 0 omeprazole 20 mg capsule,delayed release(DR/EC) 20 mg PO DAILY RF: 0 ondansetron HCl 4 mg tablet 4 mg PO Q6H PRN (Reason: nausea/vomiting) RF: 0 levonorgestrel-ethinyl estrad 0.15 mg-30 mcg (91) tablets,dose pack,3 month PO RF: 0 ondansetron 4 mg tablet,disintegrating 4 mg PO Q6H PRN (Reason: nausea and vomiting) Qty: 60 RF: 0
[2020-07-30] MEDS: Prochlorperazine Edisylate 10 MG/2 ML VIAL IVPUSH (07:02)
--- NOTE | 2020-07-30 07:07 | PC.NURSE ---
PT RESTING IN THE STRETCHER RUBBING HER ABD/SLIGHTLY RESTLESS. ALERT AND ORIENTED, SKIN APPROPRIATE FOR ETHNICITY , RESPIRATIONS EVEN AND UNLABORED. PT STATES THAT NAUSEA HAS NOT IMPROVED AMD HAVING BURNING/PAIN IN MID/EPIGASTRIC AREA
--- NOTE | 2020-07-30 07:57 | PC.NURSE ---
PT IS CURRENTLY RESTING WITH EYES SHUT, RESTING QUIETLY
[2020-07-30 08:45] VITALS: BP 103/60; PULSE 83; RESP 18; O2SAT 100
== END 2020-07-30 08:47 | disposition home or self-care (01) ==
PROVIDERS: Emergency Provider Emergency Medicine; PCP Internal Medicine
DX: R11.15 Cyclical vomiting syndrome unrelated to migraine (principal); R11.2 Nausea with vomiting, unspecified; F12.90 Cannabis use, unspecified, uncomplicated; Z79.899 Other long term (current) drug therapy
CPT/HCPCS: 36415; 80048; 80076; 83690; 85025; 96361; 96374; 96375; 99284

== ENCOUNTER 2020-08-01 04:06 | Emergency (ER) | payer OTHER, SELFPAY ==
[2020-08-01 04:17] VITALS: BP 119/81; PULSE 93; RESP 18; TEMP 36.7; O2SAT 100; BMI 19.0
[2020-08-01 04:35] LABS: Glucose Urine UA NEG (NEG); Leukocyte Esterase Urine NEG (NEG); Nitrite Urine NEG (NEG); Urine Blood NEG (NEG); Urine Ketones 15 MG/DL (NEG); Urine Protein NEG (NEG-TRACE)
[2020-08-01] MEDS: ondansetron HCL 4 MG/2 ML VIAL IVPUSH (04:35)
[2020-08-01] MEDS: 0.9 % Sodium Chloride 1,000 ML 1000 ML IV (04:35)
[2020-08-01] MEDS: diphenhydrAMINE HCL 50 MG/ML VIAL IVPUSH (04:35)
[2020-08-01] MEDS: Metoclopramide HCl 10 MG/2 ML VIAL IVPUSH (04:35)
[2020-08-01 04:36] LABS: Appearance Urine CLEAR; Color Urine STRAW; UACC Culture Trigger NO
[2020-08-01 04:37] LABS: UPreg QC Valid YES; Urine Pregnancy NEGATIVE (NEGATIVE)
[2020-08-01 04:49] LABS: Barbiturates, Urine Not Detected (Not Detect); Cannabinoid Screen Urine POSITIVE (Not Detect); Cocaine Screen Urine Not Detected (Not Detect); Opiate Screen Urine Not Detected (Not Detect)
[2020-08-01 04:53] LABS: Amphetamine Screen Urine Not Detected (Not Detect); Benzodiazepines Screen Urine Not Detected (Not Detect); Phencyclidine Screen Urine Not Detected (Not Detect)
[2020-08-01] MEDS: Prochlorperazine Edisylate 10 MG/2 ML VIAL 5 MG IVPUSH (05:24)
[2020-08-01] MEDS: Famotidine/PF 20 MG/2 ML VIAL IVPUSH (05:24)
[2020-08-01] MEDS: LORazepam 2 MG/ML VIAL 0.5 MG IVPUSH (05:24)
--- NOTE | 2020-08-01 07:10 | ED.NAVMDI ---
HPI - Nausea/Vomiting/Diarrhea General Chief complaint: Nausea/Vomiting/Diarrhea Stated complaint: Abd pain Time Seen by Provider: 08/01/20 04:13 Source: patient Mode of arrival: ambulatory Limitations: no limitations History of Present Illness HPI Narrative: This is a 24-year-old female who is a marijuana smoker and presents with complaints nausea and nonbloody / nonbilious vomiting that has been recurrent since her last visit here in the emergency on 07/22, 07/28, 07/29, 07/30. Patient states that she is not used marijuana for 3-4 days but denies any associated fever, chills, diarrhea, urinary pain / burning /frequency. Related Data Home Medications Medication Instructions Recorded Confirmed cyclobenzaprine 5 mg tablet 5 mg PO TID PRN 07/23/20 07/23/20 famotidine 20 mg tablet 20 mg PO BID 07/23/20 07/23/20 ibuprofen 600 mg tablet mg PO 07/23/20 07/23/20 levonorgestrel 0.15 mg-ethinyl tab PO 07/23/20 07/23/20 estradiol 30 mcg tablets,3 mos pack(91) omeprazole 20 mg capsule,delayed 20 mg PO DAILY 07/23/20 07/23/20 release ondansetron HCl 4 mg tablet 4 mg PO Q6H PRN 07/23/20 07/23/20 ondansetron HCl 8 mg tablet mg PO 07/23/20 07/23/20 metoclopramide HCl 5 mg tablet 5 mg PO Q6H PRN tab 07/30/20 Previous Rx's Medication Instructions Recorded ondansetron 4 mg disintegrating 4 mg PO Q6H PRN #60 tab 07/23/20 tablet pantoprazole [Protonix] 40 mg PO DAILY #20 tab 07/28/20 prochlorperazine maleate 10 mg PO TID PRN #10 tab 07/28/20 [Compazine] ondansetron 4 mg PO Q8H PRN #20 tab 07/29/20 promethazine 25 mg [place] Q6H PRN #12 ea 07/29/20 dicyclomine 10 mg capsule 10 mg PO BID 10 Days #20 cap 07/30/20 metoclopramide HCl [Reglan] 5 mg PO Q6H PRN #14 tab 11/12/20 Allergies Allergy/AdvReac Type Severity Reaction Status Date / Time CHICKEN NUGGETS/PATTIES Allergy Mild HIVES Uncoded 07/23/20 11:14 CHEESE CAKE Allergy Unknown HIVES Uncoded 07/23/20 11:14 Review of Systems Review of Systems: Pertinent positives and negatives as stated in HPI 10 point review systems is otherwise negative. [facility] Past Medical History Source: nursing notes reviewed Medical History Anxiety Cyclical vomiting Gastritis Nausea & vomiting Surgical History No pertinent past surgical history Family History Family History Father Medical history unknown Mother Medical history unknown Social History Social History Alcohol intake: never Smoking Status: Never smoker Use of substances other than those prescribed or required for medical reasons: No Substance Use Type: Marijuana Advance Directives: No Advance Directives Information Provided: No Physical Exam Vital Signs: Vital Signs: Last Vital Signs Temp 98.0 F 08/01/20 04:17 Pulse 93 08/01/20 04:17 Resp 18 08/01/20 04:17 BP 119/81 08/01/20 04:17 Pulse Ox 100 08/01/20 04:17 Body Mass Index 19.0 VITAL SIGNS: Reviewed. GENERAL: Well developed, well nourished, in no acute distress. HEAD: Normocephalic/atraumatic, EYES: PERRLA, EOMI intact without pain, no nystagmus/pallor/icterus noted EARS: Ext canals without abnormality, TMs non-bulging and non-erythematous NOSE: Nares patent bilateral OROPHARYNX: no oral lesions noted, posterior pharynx clear and non-erythematous without noted tonsillar enlargement/erythema/exudates NECK: Supple, no adenopathy LUNGS: Normal breath sounds. No adventitious sounds or accessory muscle use. SpO2<100> CARDIOVASCULAR: Regular rate and rhythm without noted murmurs, no JVD or lower extremity edema. ABDOMEN: Soft, Mild tenderness in the epigastric without rebound, non-distended with bowel sounds. No rigidity. No guarding. No palpable masses or hernias noted MUSCULOSKELETAL: No tenderness, deformities, or effusions noted on gross inspection. EXTREMITIES: No cyanosis, clubbing or edema. SKIN: Inspection of the skin reveals no rashes, ulcerations, jaundice, pallor, or petechiae. NEUROLOGIC: Alert and oriented x 4. Strength and sensation to light touch were grossly intact x 4. Course Course Course Narrative: This is a 24-year-old female with history and clinical presentation consistent with cyclic vomiting after ruling out UTI and urine . Patient responded well to a combination antiemetics and is currently feeling much better. MDM - Nausea/Vomiting/Diarrhea Lab Data Labs: Lab Results 08/01/20 08/01/20 Range/Units 04:27 04:27 Urine Color STRAW Urine Appearance CLEAR Urine pH 6.0 (5.0-8.0) Ur Specific [place] 1.010 (1.005-1.025) Urine Protein NEG (NEG-TRACE) MG/DL Urine Glucose (UA) NEG (NEG) MG/DL Urine Ketones 15 (NEG) MG/DL Urine Blood NEG (NEG) Urine Nitrite NEG (NEG) Ur Leukocyte Esterase NEG (NEG) Urine Test NEGATIVE (NEGATIVE) Urine Opiates Screen Not Detected (Not Detect) Ur Barbiturates Screen Not Detected (Not Detect) Ur Phencyclidine Scrn Not Detected (Not Detect) Ur Amphetamines Screen Not Detected (Not Detect) U Benzodiazepines Scrn Not Detected (Not Detect) Urine Cocaine Screen Not Detected (Not Detect) U Marijuana (THC) Screen POSITIVE H (Not Detect) Discharge Plan Discharge Clinical Impression: Cyclical vomiting, Gastritis Patient Disposition: Home, Self-Care Instructions: Gastritis (ED), Diet for Stomach Ulcers and Gastritis (ED), Cyclic Vomiting Syndrome (ED) Additional Instructions: 1. Increase fluid hydration especially with water. 2. Please review the dietary recommendations in the informational packet on gastritis and ulcers. 3. Please abstain from alcohol and marijuana until your stomach begins to recover. 4. Recommend using [id number] Maalox as directed on outside packaging prior to each meal. Avoid NSAIDs and aspirin. The patient and/or family acknowledge understanding of results (as applicable), diagnosis, treatment plan, need for follow up, and symptoms that should prompt a return to the emergency room. Prescriptions: No Action metoclopramide HCl [Reglan] 5 mg tablet 5 mg PO Q6H PRN (Reason: nausea and vomiting) Qty: 14 RF: 0 pantoprazole [Protonix] 40 mg tablet,delayed release (DR/EC) 40 mg PO DAILY Qty: 20 RF: 0 prochlorperazine maleate [Compazine] 10 mg tablet 10 mg PO TID PRN (Reason: nausea and vomiting) Qty: 10 RF: 0 ondansetron 4 mg tablet,disintegrating 4 mg PO Q8H PRN (Reason: nausea and vomiting) Qty: 20 RF: 0 promethazine 25 mg suppository 25 mg [place] Q6H PRN (Reason: nausea and vomiting) Qty: 12 RF: 0 famotidine 20 mg tablet 20 mg PO BID RF: 0 ondansetron HCl 8 mg tablet PO RF: 0 cyclobenzaprine 5 mg tablet 5 mg PO TID PRN (Reason: muscle spasm) RF: 0 ibuprofen 600 mg tablet PO RF: 0 omeprazole 20 mg capsule,delayed release(DR/EC) 20 mg PO DAILY RF: 0 ondansetron HCl 4 mg tablet 4 mg PO Q6H PRN (Reason: nausea/vomiting) RF: 0 levonorgestrel-ethinyl estrad 0.15 mg-30 mcg (91) tablets,dose pack,3 month PO RF: 0 ondansetron 4 mg tablet,disintegrating 4 mg PO Q6H PRN (Reason: nausea and vomiting) Qty: 60 RF: 0 dicyclomine 10 mg capsule 10 mg PO BID 10 Days Qty: 20 RF: 0 Referrals: Physician,Unknown [Primary Care Provider] - 2 days ( further management of cyclic vomiting.)
[2020-08-01] MEDS: Lidocaine HCl Viscous 2 % 15 ML SOLUTION 10 ML MUCOUS MEM (07:34)
[2020-08-01] MEDS: Magnesium Hydrox/Alum Hydrox 30 ML ORAL.SUSP PO (07:35)
== END 2020-08-01 08:00 | disposition home or self-care (01) ==
PROVIDERS: Emergency Provider Student in an Organized Health Care Education/Training Program
DX: R11.15 Cyclical vomiting syndrome unrelated to migraine (principal); K29.70 Gastritis, unspecified, without bleeding; F12.90 Cannabis use, unspecified, uncomplicated
CPT/HCPCS: 80307; 81003; 81025; 96361; 96374; 96375; 99284; J1200; J2060; J2405; J2765

== ENCOUNTER 2020-08-25 06:56 | Emergency (ER) | payer OTHER, SELFPAY ==
[2020-08-25 07:08] VITALS: BP 112/72; PULSE 109; RESP 20; TEMP 36.7; O2SAT 100; BMI 19.3
--- NOTE | 2020-08-25 07:17 | ED.NAVMDI ---
HPI - Nausea/Vomiting/Diarrhea General Chief complaint: Nausea/Vomiting/Diarrhea Stated complaint: vomiting Time Seen by Provider: 08/25/20 07:14 Source: patient and old records reviewed Mode of arrival: ambulatory Limitations: no limitations History of Present Illness MD elicited complaint: nausea, vomiting and abdominal pain Pertinent past history: cyclical vomiting Onset (ago): day(s) (last night) Description of vomiting: food contents and watery Associated nausea: Yes Associated abdominal pain: Yes Location of pain: epigastric Pain consistency: constant Severity: similar to previous episodes Quality: stabbing Exacerbating factors: none Relieving factors: none Context: marijuana use (states she has abstained x 3 weeks) Associated symptoms: loss of appetite, malaise and nausea/vomiting Related Data Home Medications Medication Instructions Recorded Confirmed cyclobenzaprine 5 mg tablet 5 mg PO TID PRN 07/23/20 07/23/20 famotidine 20 mg tablet 20 mg PO BID 07/23/20 07/23/20 ibuprofen 600 mg tablet mg PO 07/23/20 07/23/20 levonorgestrel 0.15 mg-ethinyl tab PO 07/23/20 07/23/20 estradiol 30 mcg tablets,3 mos pack(91) omeprazole 20 mg capsule,delayed 20 mg PO DAILY 07/23/20 07/23/20 release ondansetron HCl 4 mg tablet 4 mg PO Q6H PRN 07/23/20 07/23/20 ondansetron HCl 8 mg tablet mg PO 07/23/20 07/23/20 metoclopramide HCl 5 mg tablet 5 mg PO Q6H PRN tab 07/30/20 Previous Rx's Medication Instructions Recorded ondansetron 4 mg disintegrating 4 mg PO Q6H PRN #60 tab 07/23/20 tablet pantoprazole [Protonix] 40 mg PO DAILY #20 tab 07/28/20 prochlorperazine maleate 10 mg PO TID PRN #10 tab 07/28/20 [Compazine] ondansetron 4 mg PO Q8H PRN #20 tab 07/29/20 promethazine 25 mg [place] Q6H PRN #12 ea 07/29/20 dicyclomine 10 mg capsule 10 mg PO BID 10 Days #20 cap 07/30/20 metoclopramide HCl [Reglan] 5 mg PO Q6H PRN #14 tab 07/30/20 ondansetron 4 mg PO Q8H PRN #20 tab 08/25/20 Allergies Allergy/AdvReac Type Severity Reaction Status Date / Time CHICKEN NUGGETS/PATTIES Allergy Mild HIVES Uncoded 07/23/20 11:14 CHEESE CAKE Allergy Unknown HIVES Uncoded 07/23/20 11:14 Review of Systems Review of Systems: Constitutional : No Weight loss, No Fever, No Chills ENT/Mouth : No sore throat, No Rhinorrhea Eyes: No Swelling, No Redness Cardiovascular : No Chest Pain, No SOB, NoEdema Respiratory : No Cough, No Sputum, No Wheezing Gastrointestinal : Positive Nausea, Positive Vomiting, no Diarrhea, positive abdominal Pain, No Hematochezia, No Melena Genitourinary : No Dysuria, No Urinary Frequency, No Hematuria, No Urgency Musculoskeletal : No joint pain, No Myalgias, No Joint Swelling Skin : No Skin Lesions, No rash Neuro : No Weakness, No Numbness, No Dizziness, No Headache All other systems reviewed and are negative. Gastrointestinal: Gastrointestinal: Reports nausea PMFSH Past Medical History Attestation statement: The following information was validated with the patient. Medical History Anxiety Cyclical vomiting Gastritis GERD (gastroesophageal reflux disease) Nausea & vomiting Surgical History No pertinent past surgical history Family History Family History Father Medical history unknown Mother Medical history unknown Social History Social History Alcohol intake: never Smoking Status: Never smoker Smoked in Last 30 Days: No Use of substances other than those prescribed or required for medical reasons: Yes Substance Use Type: Marijuana Last Used Substance: Weeks (ago) Advance Directives: No Advance Directives Information Provided: Yes Physical Exam Vital Signs: Vital Signs: Last Vital Signs Temp 98.0 F 08/25/20 07:08 Pulse 96 08/25/20 09:39 Resp 20 08/25/20 09:39 BP 105/63 08/25/20 09:39 Pulse Ox 98 08/25/20 09:39 Body Mass Index 19.3 Appearance: Alert. Oriented X3. Active dry heaving, mild acute distress. Anxious, yelling Eyes: Pupils equal, round and reactive to light. ENT: Pharynx dry MM Neck: Normal inspection. Neck supple. CVS: Normal heart rate and rhythm. Pulses normal. Respiratory: No respiratory distress. Breath sounds normal. Abdomen: Soft and moderate epigastric tenderness no rebound or guarding. Skin: Skin warm and dry. pale skin color. Normal skin turgor. Extremities: No lower extremity edema. No calf ttp Neuro: Oriented X 3. No motor deficit. No sensory deficit. Course Course Course Narrative: labs stable, feels much better, can be DC home at this time MDM - Nausea/Vomiting/Diarrhea MDM Narrative Medical decision making narrative: 24 yo female with hx of GERD, cyclical vomiting syndrome states she has abstained from THC for 3 weeks here with vomiting and epigastric pain typical of her emesis episodes at this time will need labs, IM haldol, IV ativan, labs, IVF - dispo per results and improvement Lab Data Result diagrams: 08/25/20 07:43 08/25/20 07:43 Labs: Lab Results 08/25/20 08/25/20 08/25/20 Range/Units 07:43 07:43 07:43 WBC 8.1 (4.8-10.8) X10*3/uL RBC 4.03 L (4.20-5.50) X10*6/uL Hgb 12.0 (12.0-16.0) g/dl Hct 37.0 (37-47) % MCV 91.8 (80-98) fL MCH 29.8 (27.0-33.0) pg MCHC 32.4 (31.0-35.0) g/dl RDW 14.6 (11.0-16.0) % Plt Count 255 (160-400) X10*3/uL MPV 10.3 (9.4-12.3) fL Immature Gran % (Auto) 0.1 (0.0-0.4) % Neut % (Auto) 73.6 H (45-73) % Lymph % (Auto) 18.6 L (20-40) % [place] % (Auto) 6.7 (2-11) % Eos % (Auto) 0.5 (0-4) % Baso % (Auto) 0.5 (0-2) % Lymph # (Auto) 1.5 (1.2-4.9) X10*3/uL [place] # (Auto) 0.5 (0.1-1.2) X10*3/uL Eos # (Auto) 0.0 (0.0-0.4) X10*3/uL Baso # (Auto) 0.0 (0.0-0.2) X10*3/uL Abs Immat Gran (auto) 0.01 (0.00-0.03) X10*3/uL Absolute Neuts (auto) 6.0 (2.0-8.3) X10*3/uL Absolute Nucleated RBC 0.000 (0.0-0.012) X10*3/uL Nucleated RBC % (auto) 0.0 (0.0-0.2) /100WBC Hold Blue Top SEE NOTE Sodium 138 (135-145) mmol/L Potassium 3.6 (3.3-5.1) mmol/l Chloride 106 (96-108) mmol/L Carbon Dioxide 21 L (22-29) mmol/L Anion Gap 15 (12-20) BUN 9 (9-16) mg/dL Creatinine 0.71 (0.5-1.4) mg/dL Estim Creat Clear Calc 99.7 Estimated GFR > 60 Random Glucose 120 H (60-115) mg/dL Calcium 9.2 (8.4-10.2) mg/dL Magnesium 1.8 (1.6-2.6) mg/dL Total Bilirubin 0.3 (0.0-1.0) mg/dL Direct Bilirubin 0.2 (0.0-0.5) mg/dL AST 12 (5-31) U/L ALT 13 (0-31) U/L Alkaline Phosphatase 49 (39-117) U/L Total Protein 7.2 (6.5-8.0) g/dL Albumin 4.4 (3.5-5.0) g/dL Lipase 25 (8-78) U/L Urine Color Urine Appearance Urine pH (5.0-8.0) Ur Specific [place] (1.005-1.025) Urine Protein (NEG-TRACE) MG/DL Urine Glucose (UA) (NEG) MG/DL Urine Ketones (NEG) MG/DL Urine Blood (NEG) Urine Nitrite (NEG) Ur Leukocyte Esterase (NEG) Urine Test (NEGATIVE) Ethyl Alcohol mg/dL 08/25/20 08/25/20 Range/Units 07:43 09:36 WBC (4.8-10.8) X10*3/uL RBC (4.20-5.50) X10*6/uL Hgb (12.0-16.0) g/dl Hct (37-47) % MCV (80-98) fL MCH (27.0-33.0) pg MCHC (31.0-35.0) g/dl RDW (11.0-16.0) % Plt Count (160-400) X10*3/uL MPV (9.4-12.3) fL Immature Gran % (Auto) (0.0-0.4) % Neut % (Auto) (45-73) % Lymph % (Auto) (20-40) % [place] % (Auto) (2-11) % Eos % (Auto) (0-4) % Baso % (Auto) (0-2) % Lymph # (Auto) (1.2-4.9) X10*3/uL [place] # (Auto) (0.1-1.2) X10*3/uL Eos # (Auto) (0.0-0.4) X10*3/uL Baso # (Auto) (0.0-0.2) X10*3/uL Abs Immat Gran (auto) (0.00-0.03) X10*3/uL Absolute Neuts (auto) (2.0-8.3) X10*3/uL Absolute Nucleated RBC (0.0-0.012) X10*3/uL Nucleated RBC % (auto) (0.0-0.2) /100WBC Hold Blue Top Sodium (135-145) mmol/L Potassium (3.3-5.1) mmol/l Chloride (96-108) mmol/L Carbon Dioxide (22-29) mmol/L Anion Gap (12-20) BUN (9-16) mg/dL Creatinine (0.5-1.4) mg/dL Estim Creat Clear Calc Estimated GFR Random Glucose (60-115) mg/dL Calcium (8.4-10.2) mg/dL Magnesium (1.6-2.6) mg/dL Total Bilirubin (0.0-1.0) mg/dL Direct Bilirubin (0.0-0.5) mg/dL AST (5-31) U/L ALT (0-31) U/L Alkaline Phosphatase (39-117) U/L Total Protein (6.5-8.0) g/dL Albumin (3.5-5.0) g/dL Lipase (8-78) U/L Urine Color STRAW Urine Appearance CLEAR Urine pH 6.5 (5.0-8.0) Ur Specific [place] 1.015 (1.005-1.025) Urine Protein NEG (NEG-TRACE) MG/DL Urine Glucose (UA) NEG (NEG) MG/DL Urine Ketones NEG (NEG) MG/DL Urine Blood NEG (NEG) Urine Nitrite NEG (NEG) Ur Leukocyte Esterase NEG (NEG) Urine Test NEGATIVE (NEGATIVE) Ethyl Alcohol < 10 mg/dL Discharge Plan Discharge Clinical Impression: Cyclical vomiting Patient Disposition: Home, Self-Care Instructions: Cyclic Vomiting Syndrome (ED) Additional Instructions: return to ED for any worsening symptoms or concerns Prescriptions: New ondansetron 4 mg tablet,disintegrating 4 mg PO Q8H PRN (Reason: nausea and vomiting) Qty: 20 RF: 0 No Action metoclopramide HCl [Reglan] 5 mg tablet 5 mg PO Q6H PRN (Reason: nausea and vomiting) Qty: 14 RF: 0 pantoprazole [Protonix] 40 mg tablet,delayed release (DR/EC) 40 mg PO DAILY Qty: 20 RF: 0 prochlorperazine maleate [Compazine] 10 mg tablet 10 mg PO TID PRN (Reason: nausea and vomiting) Qty: 10 RF: 0 ondansetron 4 mg tablet,disintegrating 4 mg PO Q8H PRN (Reason: nausea and vomiting) Qty: 20 RF: 0 promethazine 25 mg suppository 25 mg [place] Q6H PRN (Reason: nausea and vomiting) Qty: 12 RF: 0 famotidine 20 mg tablet 20 mg PO BID RF: 0 ondansetron HCl 8 mg tablet PO RF: 0 cyclobenzaprine 5 mg tablet 5 mg PO TID PRN (Reason: muscle spasm) RF: 0 ibuprofen 600 mg tablet PO RF: 0 omeprazole 20 mg capsule,delayed release(DR/EC) 20 mg PO DAILY RF: 0 ondansetron HCl 4 mg tablet 4 mg PO Q6H PRN (Reason: nausea/vomiting) RF: 0 levonorgestrel-ethinyl estrad 0.15 mg-30 mcg (91) tablets,dose pack,3 month PO RF: 0 ondansetron 4 mg tablet,disintegrating 4 mg PO Q6H PRN (Reason: nausea and vomiting) Qty: 60 RF: 0 dicyclomine 10 mg capsule 10 mg PO BID 10 Days Qty: 20 RF: 0 Referrals: Breana Jama MD [Primary Care Provider] - 2 days (if not better) Stand Alone Forms: Work/School Release
[2020-08-25] MEDS: 0.9 % Sodium Chloride 1,000 ML 999 ML IVCONT (07:44)
[2020-08-25 07:49] LABS: MANUAL DIFF FLAG NO
[2020-08-25] MEDS: Haloperidol Lactate 5 MG/ML VIAL IM (07:49)
[2020-08-25] MEDS: LORazepam 2 MG/ML VIAL 1 MG IVPUSH (07:50)
[2020-08-25] MEDS: Ketorolac Tromethamine 30 MG/ML VIAL IVPUSH (07:50)
[2020-08-25 07:57] LABS: Basophils Percent Auto 0.5 % (0-2); Eosinophils Percent Auto 0.5 % (0-4); Imm Gran Abs Auto 0.01 X10*3/uL (0.00-0.03); Imm Gran Pct Auto 0.1 % (0.0-0.4); Lymphocytes Absolute Auto 1.5 X10*3/uL (1.2-4.9); Lymphocytes Percent Auto 18.6 % (20-40); Mean Corpuscular HGB Conc 32.4 g/dl (31.0-35.0); Mean Corpuscular Hemoglobin 29.8 pg (27.0-33.0); Mean Corpuscular Volume 91.8 fL (80-98); Mean Platelet Volume 10.3 fL (9.4-12.3); Monocytes Absolute Auto 0.5 X10*3/uL (0.1-1.2); Monocytes Percent Auto 6.7 % (2-11); Neutrophils Percent Auto 73.6 % (45-73); Platelet Count 255 X10*3/uL (160-400); Red Blood Count 4.03 X10*6/uL (4.20-5.50); Red Cell Distribution Width 14.6 % (11.0-16.0); White Blood Count 8.1 X10*3/uL (4.8-10.8)
--- NOTE | 2020-08-25 08:10 | PC.NURSE ---
pt was vomiting stomach contents and moaning on arrival she was medicated and is not calm and resting with her eyes closed no retching or vomiting at this time
[2020-08-25 08:13] LABS: Ethanol < 10 mg/dL
[2020-08-25 08:16] LABS: Alanine Aminotransferase 13 U/L (0-31); Albumin Level 4.4 g/dL (3.5-5.0); Alkaline Phosphatase 49 U/L (39-117); Anion Gap 15 (12-20); Aspartate Amino Transferase 12 U/L (5-31); Bilirubin Direct 0.2 mg/dL (0.0-0.5); Bilirubin Total 0.3 mg/dL (0.0-1.0); Blood Urea Nitrogen 9 mg/dL (9-16); Calcium 9.2 mg/dL (8.4-10.2); Carbon Dioxide 21 mmol/L (22-29); Chloride 106 mmol/L (96-108); Creatinine Clr Calc Pharmacy 99.7; Estimated Glomerular Filt Rate > 60; Glucose Random 120 mg/dL (60-115); Lipase 25 U/L (8-78); Magnesium 1.8 mg/dL (1.6-2.6); Potassium 3.6 mmol/l (3.3-5.1); Sodium 138 mmol/L (135-145); Total Protein 7.2 g/dL (6.5-8.0)
[2020-08-25 08:18] VITALS: BP 105/66; PULSE 93; RESP 14; O2SAT 98
[2020-08-25 09:39] VITALS: BP 105/63; PULSE 96; RESP 20; O2SAT 98
[2020-08-25 09:47] LABS: Glucose Urine UA NEG (NEG); Leukocyte Esterase Urine NEG (NEG); Nitrite Urine NEG (NEG); PH 6.5 (5.0-8.0); Specific Gravity - Urine 1.015 (1.005-1.025); Urine Blood NEG (NEG); Urine Ketones NEG (NEG); Urine Protein NEG (NEG-TRACE)
[2020-08-25 09:48] LABS: Appearance Urine CLEAR; Color Urine STRAW
[2020-08-25 09:49] LABS: UPreg QC Valid YES; Urine Pregnancy NEGATIVE (NEGATIVE)
[2020-08-25 10:18] LABS: Amphetamine Screen Urine Not Detected (Not Detect); Barbiturates, Urine Not Detected (Not Detect); Benzodiazepines Screen Urine Not Detected (Not Detect); Cannabinoid Screen Urine POSITIVE (Not Detect); Cocaine Screen Urine Not Detected (Not Detect); Opiate Screen Urine Not Detected (Not Detect); Phencyclidine Screen Urine Not Detected (Not Detect)
== END 2020-08-25 10:47 | disposition home or self-care (01) ==
PROVIDERS: Emergency Provider Emergency Medicine; PCP Internal Medicine
DX: R11.15 Cyclical vomiting syndrome unrelated to migraine (principal); F12.90 Cannabis use, unspecified, uncomplicated; Z79.899 Other long term (current) drug therapy
CPT/HCPCS: 36415; 80048; 80076; 80307; 80320; 81003; 81025; 83690; 83735; 85025; 96361; 96372; 96374; 96375; 99284; J1885; J2060

== ENCOUNTER 2020-08-26 05:27 | Emergency (ER) | payer OTHER, SELFPAY ==
[2020-08-26 05:29] VITALS: BP 125/67; PULSE 114; RESP 20; TEMP 36.7; O2SAT 98; BMI 19.3
--- NOTE | 2020-08-26 05:48 | ECG_ITS ---
Test Reason : ANXIETY Blood Pressure : / mmHG Vent. Rate : 084 BPM Atrial Rate : 084 BPM P-R Int : 138 ms QRS Dur : 072 ms QT Int : 348 ms P-R-T Axes : 074 079 057 degrees QTc Int : 411 ms Normal sinus rhythm with sinus arrhythmia Normal ECG When compared with ECG of 08-JUL-2019 17:55, No significant change was found Referred By: Briana Salazar Electronically Signed By:YIFAN HUTCHINS
--- NOTE | 2020-08-26 05:50 | ED.ANXIETY ---
HPI - Anxiety General Chief Complaint: Anxiety Stated Complaint: ANXIETY Time Seen by Provider: 08/26/20 05:48 Source: patient Mode of arrival: ambulatory Limitations: no limitations History of Present Illness HPI narrative: Patient comes to emergency room complaining of vomiting. Patient was seen yesterday for the same issue. Patient is known to be a a THC user, causing cyclical vomiting. This morning, while patient was in the waiting room, patient said that she was having a panic attack, lowered herself gracefully to the ground. MD complaint: anxiety Related Data Home Medications Medication Instructions Recorded Confirmed cyclobenzaprine 5 mg tablet 5 mg PO TID PRN 07/23/20 07/23/20 famotidine 20 mg tablet 20 mg PO BID 07/23/20 07/23/20 ibuprofen 600 mg tablet mg PO 07/23/20 07/23/20 levonorgestrel 0.15 mg-ethinyl tab PO 07/23/20 07/23/20 estradiol 30 mcg tablets,3 mos pack(91) omeprazole 20 mg capsule,delayed 20 mg PO DAILY 07/23/20 07/23/20 release ondansetron HCl 4 mg tablet 4 mg PO Q6H PRN 07/23/20 07/23/20 ondansetron HCl 8 mg tablet mg PO 07/23/20 07/23/20 metoclopramide HCl 5 mg tablet 5 mg PO Q6H PRN tab 07/30/20 Previous Rx's Medication Instructions Recorded ondansetron 4 mg disintegrating 4 mg PO Q6H PRN #60 tab 07/23/20 tablet pantoprazole [Protonix] 40 mg PO DAILY #20 tab 07/28/20 prochlorperazine maleate 10 mg PO TID PRN #10 tab 07/28/20 [Compazine] ondansetron 4 mg PO Q8H PRN #20 tab 07/29/20 promethazine 25 mg [place] Q6H PRN #12 ea 07/29/20 dicyclomine 10 mg capsule 10 mg PO BID 10 Days #20 cap 07/30/20 metoclopramide HCl [Reglan] 5 mg PO Q6H PRN #14 tab 07/30/20 ondansetron 4 mg PO Q8H PRN #20 tab 08/25/20 hydroxyzine HCl 50 mg PO TID PRN #14 tab 08/26/20 Allergies Allergy/AdvReac Type Severity Reaction Status Date / Time CHICKEN NUGGETS/PATTIES Allergy Mild HIVES Uncoded 08/26/20 05:32 CHEESE CAKE Allergy Unknown HIVES Uncoded 08/26/20 05:32 Review of Systems Review of Systems: Constitutional : No Weight loss, No Fever, No Chills, No Night Sweats, No Fatigue, No Malaise ENT/Mouth : No Hearing loss, No Ear Pain, No Nasal Congestion, No Sinus Pain, No Hoarseness, No sore throat, No Rhinorrhea, No Swallowing Difficulty Eyes: No Eye Pain, No Swelling, No Redness, No Foreign Body, No Discharge, No Vision Changes Cardiovascular : No Chest Pain, No SOB, No Dyspnea on Exertion, No Orthopnea, No Edema, No Palpitations Respiratory : No Cough, No Sputum, No Wheezing, No Smoke Exposure, No Dyspnea Gastrointestinal : complaining of several days of nausea vomiting, No Diarrhea, No Constipation, No abdominal Pain, No Hematochezia, No Melena Genitourinary : no irregular bleeding, No Dysuria, No Urinary Frequency, No Hematuria, No Urinary Incontinence, No Urgency, No Flank Pain, No Urinary Flow Changes, No Hesitancy Musculoskeletal : No joint pain, No Myalgias, No Joint Swelling Skin : No Skin Lesions, No rash Neuro : No Weakness, No Numbness, No Paresthesias, No Loss of Consciousness, No Dizziness, No Headache Psych : No Anxiety/Panic, No Depression, No SI/HI/AH/VH, No Social Issues, Heme/Lymph: No Bruising, No Bleeding,No Lymphadenopathy Endocrine : No Polyuria, No Polydipsia, No Temperature Intolerance [facility] Past Medical History Medical History Anxiety Cyclical vomiting Gastritis GERD (gastroesophageal reflux disease) Nausea & vomiting Surgical History No pertinent past surgical history Family History Family History Father Medical history unknown Mother Medical history unknown Social History Social History Alcohol intake: never Smoking Status: Never smoker Use of substances other than those prescribed or required for medical reasons: No Substance Use Type: Marijuana Advance Directives: No Physical Exam Vital Signs: Vital Signs: Last Vital Signs Temp 98.1 F 08/26/20 05:29 Pulse 94 08/26/20 06:00 Resp 18 08/26/20 06:00 BP 112/67 08/26/20 06:00 Pulse Ox 99 08/26/20 06:00 Body Mass Index 19.3 Appearance: Alert. Oriented X3. moderate distress, recovering from a panic o'clock Eyes: Pupils equal, round and reactive to light. ENT: Pharynx normal. Neck: Normal inspection. Neck supple. No lymph nodes noted. No crepitus CVS: Normal heart rate and rhythm. Pulses normal. Normal S1 and S2 Respiratory: No respiratory distress. Breath sounds normal. No Wheezing. No rales Abdomen: Soft and nontender. No rigidity. No distention. good BS x4 Skin: Skin warm and dry. Normal skin color. Normal skin turgor. Extremities: No lower extremity edema. No lower extremity edema. No Lacerations. No Rash Neuro: Oriented X 3. No motor deficit. No sensory deficit. Moving all extermities. No slurred speech. Course Course Course Narrative: patient's labs are stable, EKG within normal limits. Patient being discharged. Patient has not had any episodes of vomiting in the emergency room. patient's test was yesterday negative MDM - Anxiety Lab Data Result diagrams: 08/26/20 05:56 08/26/20 05:55 Labs: Lab Results 08/26/20 08/26/20 Range/Units 05:55 05:56 WBC 6.3 (4.8-10.8) X10*3/uL RBC 3.68 L (4.20-5.50) X10*6/uL Hgb 11.3 L (12.0-16.0) g/dl Hct 33.8 L (37-47) % MCV 91.8 (80-98) fL MCH 30.7 (27.0-33.0) pg MCHC 33.4 (31.0-35.0) g/dl RDW 14.7 (11.0-16.0) % Plt Count 221 (160-400) X10*3/uL MPV 10.1 (9.4-12.3) fL Immature Gran % (Auto) 0.2 (0.0-0.4) % Neut % (Auto) 64.6 (45-73) % Lymph % (Auto) 27.3 (20-40) % [place] % (Auto) 7.1 (2-11) % Eos % (Auto) 0.3 (0-4) % Baso % (Auto) 0.5 (0-2) % Lymph # (Auto) 1.7 (1.2-4.9) X10*3/uL [place] # (Auto) 0.5 (0.1-1.2) X10*3/uL Eos # (Auto) 0.0 (0.0-0.4) X10*3/uL Baso # (Auto) 0.0 (0.0-0.2) X10*3/uL Abs Immat Gran (auto) 0.01 (0.00-0.03) X10*3/uL Absolute Neuts (auto) 4.1 (2.0-8.3) X10*3/uL Absolute Nucleated RBC 0.000 (0.0-0.012) X10*3/uL Nucleated RBC % (auto) 0.0 (0.0-0.2) /100WBC Sodium 138 (135-145) mmol/L Potassium 3.5 (3.3-5.1) mmol/l Chloride 106 (96-108) mmol/L Carbon Dioxide 22 (22-29) mmol/L Anion Gap 14 (12-20) BUN 8 L (9-16) mg/dL Creatinine 0.71 (0.5-1.4) mg/dL Estim Creat Clear Calc 99.7 Estimated GFR > 60 Random Glucose 115 (60-115) mg/dL Calcium 8.7 (8.4-10.2) mg/dL ECG Data Attestation: I personally reviewed and interpreted this ECG as follows: ( sinus rhythm, heart rate 84, QTC 411, no ST segment depressions or elevations, no T-wave inversions) Discharge Plan Discharge Clinical Impression: Acute anxiety Patient Disposition: Home, Self-Care Instructions: Anxiety (ED) Additional Instructions: Please follow-up with your primary care physician tomorrow. If you have any worsening or new symptoms, please return to the emergency room or call 911 Prescriptions: New hydroxyzine HCl 50 mg tablet 50 mg PO TID PRN (Reason: nausea and vomiting) Qty: 14 RF: 0 No Action metoclopramide HCl [Reglan] 5 mg tablet 5 mg PO Q6H PRN (Reason: nausea and vomiting) Qty: 14 RF: 0 pantoprazole [Protonix] 40 mg tablet,delayed release (DR/EC) 40 mg PO DAILY Qty: 20 RF: 0 prochlorperazine maleate [Compazine] 10 mg tablet 10 mg PO TID PRN (Reason: nausea and vomiting) Qty: 10 RF: 0 ondansetron 4 mg tablet,disintegrating 4 mg PO Q8H PRN (Reason: nausea and vomiting) Qty: 20 RF: 0 promethazine 25 mg suppository 25 mg [place] Q6H PRN (Reason: nausea and vomiting) Qty: 12 RF: 0 ondansetron 4 mg tablet,disintegrating 4 mg PO Q8H PRN (Reason: nausea and vomiting) Qty: 20 RF: 0 famotidine 20 mg tablet 20 mg PO BID RF: 0 ondansetron HCl 8 mg tablet PO RF: 0 cyclobenzaprine 5 mg tablet 5 mg PO TID PRN (Reason: muscle spasm) RF: 0 ibuprofen 600 mg tablet PO RF: 0 omeprazole 20 mg capsule,delayed release(DR/EC) 20 mg PO DAILY RF: 0 ondansetron HCl 4 mg tablet 4 mg PO Q6H PRN (Reason: nausea/vomiting) RF: 0 levonorgestrel-ethinyl estrad 0.15 mg-30 mcg (91) tablets,dose pack,3 month PO RF: 0 ondansetron 4 mg tablet,disintegrating 4 mg PO Q6H PRN (Reason: nausea and vomiting) Qty: 60 RF: 0 dicyclomine 10 mg capsule 10 mg PO BID 10 Days Qty: 20 RF: 0
[2020-08-26] MEDS: LORazepam 1 MG TABLET PO (05:55)
[2020-08-26 06:00] VITALS: BP 112/67; PULSE 94; RESP 18; O2SAT 99
[2020-08-26 06:01] LABS: MANUAL DIFF FLAG NO
[2020-08-26 06:02] LABS: Basophils Percent Auto 0.5 % (0-2); Eosinophils Percent Auto 0.3 % (0-4); Hematocrit 33.8 % (37-47); Hemoglobin 11.3 g/dl (12.0-16.0); Imm Gran Abs Auto 0.01 X10*3/uL (0.00-0.03); Imm Gran Pct Auto 0.2 % (0.0-0.4); Lymphocytes Absolute Auto 1.7 X10*3/uL (1.2-4.9); Lymphocytes Percent Auto 27.3 % (20-40); Mean Corpuscular HGB Conc 33.4 g/dl (31.0-35.0); Mean Corpuscular Hemoglobin 30.7 pg (27.0-33.0); Mean Corpuscular Volume 91.8 fL (80-98); Mean Platelet Volume 10.1 fL (9.4-12.3); Monocytes Absolute Auto 0.5 X10*3/uL (0.1-1.2); Monocytes Percent Auto 7.1 % (2-11); Neutrophils Absolute Auto 4.1 X10*3/uL (2.0-8.3); Neutrophils Percent Auto 64.6 % (45-73); Platelet Count 221 X10*3/uL (160-400); Red Blood Count 3.68 X10*6/uL (4.20-5.50); Red Cell Distribution Width 14.7 % (11.0-16.0); White Blood Count 6.3 X10*3/uL (4.8-10.8)
[2020-08-26 06:31] LABS: Anion Gap 14 (12-20); Blood Urea Nitrogen 8 mg/dL (9-16); Calcium 8.7 mg/dL (8.4-10.2); Carbon Dioxide 22 mmol/L (22-29); Chloride 106 mmol/L (96-108); Creatinine Clr Calc Pharmacy 99.7; Estimated Glomerular Filt Rate > 60; Glucose Random 115 mg/dL (60-115); Potassium 3.5 mmol/l (3.3-5.1); Sodium 138 mmol/L (135-145)
[2020-08-26 06:40] LABS: HCG Quantitative < 2 mIU/mL
== END 2020-08-26 06:45 | disposition home or self-care (01) ==
PROVIDERS: Emergency Provider Emergency Medicine
DX: F41.9 Anxiety disorder, unspecified (principal); F12.90 Cannabis use, unspecified, uncomplicated
CPT/HCPCS: 36415; 80048; 84702; 85025; 93005; 99283; 99284

== ENCOUNTER 2020-09-18 07:03 | Emergency (ER) | payer OTHER, SELFPAY ==
[2020-09-18 07:06] VITALS: BP 125/66; PULSE 103; RESP 18; TEMP 37; O2SAT 99; BMI 44.4
[2020-09-18 07:22] VITALS: TEMP 36.5
--- NOTE | 2020-09-18 07:34 | ED.GENADULT ---
HPI - General Adult General Chief complaint: ETOH/Substance Use Stated complaint: ETOH/vomiting Time Seen by Provider: 09/18/20 07:30 Source: patient Mode of arrival: ambulatory Limitations: no limitations History of Present Illness HPI narrative: Patient comes to emergency room complaining of nausea vomiting. Patient states she had been up all night, celebrating new year's, drinking a lot of alcohol, she does not remember how much she drank or what she drank. Patient is also known to be a frequent visitor to the emergency room for cyclic vomiting. Patient denies smoking marijuana recently MD complaint: Vomiting Related Data Home Medications Medication Instructions Recorded Confirmed cyclobenzaprine 5 mg tablet 5 mg PO TID PRN 07/23/20 07/23/20 famotidine 20 mg tablet 20 mg PO BID 07/23/20 07/23/20 ibuprofen 600 mg tablet mg PO 07/23/20 07/23/20 levonorgestrel 0.15 mg-ethinyl tab PO 07/23/20 07/23/20 estradiol 30 mcg tablets,3 mos pack(91) omeprazole 20 mg capsule,delayed 20 mg PO DAILY 07/23/20 07/23/20 release ondansetron HCl 4 mg tablet 4 mg PO Q6H PRN 07/23/20 07/23/20 ondansetron HCl 8 mg tablet mg PO 07/23/20 07/23/20 metoclopramide HCl 5 mg tablet 5 mg PO Q6H PRN tab 07/30/20 Previous Rx's Medication Instructions Recorded ondansetron 4 mg disintegrating 4 mg PO Q6H PRN #60 tab 07/23/20 tablet pantoprazole [Protonix] 40 mg PO DAILY #20 tab 07/28/20 prochlorperazine maleate 10 mg PO TID PRN #10 tab 07/28/20 [Compazine] ondansetron 4 mg PO Q8H PRN #20 tab 07/29/20 promethazine 25 mg VT Q6H PRN #12 ea 07/29/20 dicyclomine 10 mg capsule 10 mg PO BID 10 Days #20 cap 07/30/20 metoclopramide HCl [Reglan] 5 mg PO Q6H PRN #14 tab 07/30/20 ondansetron 4 mg PO Q8H PRN #20 tab 08/25/20 hydroxyzine HCl 50 mg PO TID PRN #14 tab 08/26/20 ondansetron HCl [Zofran] 4 mg PO Q6H PRN #7 tab 09/18/20 Allergies Allergy/AdvReac Type Severity Reaction Status Date / Time CHICKEN NUGGETS/PATTIES Allergy Mild HIVES Uncoded 08/26/20 05:32 CHEESE CAKE Allergy Unknown HIVES Uncoded 08/26/20 05:32 Review of Systems Review of Systems: Constitutional : No Weight loss, No Fever, No Chills, No Night Sweats, No Fatigue, No Malaise ENT/Mouth : No Hearing loss, No Ear Pain, No Nasal Congestion, No Sinus Pain, No Hoarseness, No sore throat, No Rhinorrhea, No Swallowing Difficulty Eyes: No Eye Pain, No Swelling, No Redness, No Foreign Body, No Discharge, No Vision Changes Cardiovascular : No Chest Pain, No SOB, No Dyspnea on Exertion, No Orthopnea, No Edema, No Palpitations Respiratory : No Cough, No Sputum, No Wheezing, No Smoke Exposure, No Dyspnea Gastrointestinal : Planning of nausea and vomiting, No Diarrhea, No Constipation, mild abdominal discomfort, No Hematochezia, No Melena Genitourinary : no irregular bleeding, No Dysuria, No Urinary Frequency, No Hematuria, No Urinary Incontinence, No Urgency, No Flank Pain, No Urinary Flow Changes, No Hesitancy Musculoskeletal : No joint pain, No Myalgias, No Joint Swelling Skin : No Skin Lesions, No rash Neuro : No Weakness, No Numbness, No Paresthesias, No Loss of Consciousness, No Dizziness, No Headache Psych : No Anxiety/Panic, No Depression, No SI/HI/AH/VH, No Social Issues, Heme/Lymph: No Bruising, No Bleeding,No Lymphadenopathy Endocrine : No Polyuria, No Polydipsia, No Temperature Intolerance PMFSH Past Medical History Medical History Anxiety Cyclical vomiting Gastritis GERD (gastroesophageal reflux disease) Nausea & vomiting Surgical History No pertinent past surgical history Family History Family History Father Medical history unknown Mother Medical history unknown Social History Social History (Reviewed 08/25/20 @ 07:20 by KATHRYN Dockery Alcohol intake: current Alcohol intake frequency: a few times a week Smoking Status: Never smoker Use of substances other than those prescribed or required for medical reasons: No Substance Use Type: Marijuana Advance Directives: No Advance Directives Information Provided: Yes Physical Exam Vital Signs: Vital Signs: Last Vital Signs Temp 97.7 F 09/18/20 07:22 Pulse 103 H 09/18/20 07:06 Resp 18 09/18/20 08:00 BP 125/66 09/18/20 07:06 Pulse Ox 99 09/18/20 07:06 Body Mass Index 44.4 Appearance: Alert. Oriented X3. Very anxious Eyes: Pupils equal, round and reactive to light. ENT: Pharynx normal. Neck: Normal inspection. Neck supple. No lymph nodes noted. No crepitus CVS: Normal heart rate and rhythm. Pulses normal. Normal S1 and S2 Respiratory: No respiratory distress. Breath sounds normal. No Wheezing. No rales Abdomen: Soft and nontender. No rigidity. No distention. good BS x4 Skin: Skin warm and dry. Normal skin color. Normal skin turgor. Extremities: No lower extremity edema. No lower extremity edema. No Lacerations. No Rash Neuro: Oriented X 3. No motor deficit. No sensory deficit. Moving all extermities. No slurred speech. Course Course Course Narrative: Patient states that she feels better, however still nauseous. I discussed with the patient that she will need time to metabolize the alcohol. Patient did not want to wait for a urine analysis/ test. Patient is ambulatory, steady gait unassisted. Patient requesting to be discharged home, she has a sober ride. Medical Decision Making Lab Data Result diagrams: 09/18/20 07:48 09/18/20 07:48 Labs: Lab Results 09/18/20 09/18/20 Range/Units 07:48 07:48 WBC 5.8 (4.8-10.8) X10*3/uL RBC 3.85 L (4.20-5.50) X10*6/uL Hgb 11.4 L (12.0-16.0) g/dl Hct 34.9 L (37-47) % MCV 90.6 (80-98) fL MCH 29.6 (27.0-33.0) pg MCHC 32.7 (31.0-35.0) g/dl RDW 14.5 (11.0-16.0) % Plt Count 194 (160-400) X10*3/uL MPV 10.4 (9.4-12.3) fL Immature Gran % (Auto) 0.2 (0.0-0.4) % Neut % (Auto) 65.3 (45-73) % Lymph % (Auto) 24.6 (20-40) % Kidder % (Auto) 9.0 (2-11) % Eos % (Auto) 0.2 (0-4) % Baso % (Auto) 0.7 (0-2) % Lymph # (Auto) 1.4 (1.2-4.9) X10*3/uL Kidder # (Auto) 0.5 (0.1-1.2) X10*3/uL Eos # (Auto) 0.0 (0.0-0.4) X10*3/uL Baso # (Auto) 0.0 (0.0-0.2) X10*3/uL Abs Immat Gran (auto) 0.01 (0.00-0.03) X10*3/uL Absolute Neuts (auto) 3.8 (2.0-8.3) X10*3/uL Absolute Nucleated RBC 0.000 (0.0-0.012) X10*3/uL Nucleated RBC % (auto) 0.0 (0.0-0.2) /100WBC Sodium 140 (135-145) mmol/L Potassium 3.9 (3.3-5.1) mmol/l Chloride 108 (96-108) mmol/L Carbon Dioxide 20 L (22-29) mmol/L Anion Gap 16 (12-20) BUN 9 (9-16) mg/dL Creatinine 0.64 (0.5-1.4) mg/dL Estim Creat Clear Calc 178.3 Estimated GFR > 60 Random Glucose 103 (60-115) mg/dL Calcium 8.9 (8.4-10.2) mg/dL Discharge Plan Discharge Clinical Impression: Alcoholic intoxication Qualifiers: Complication of substance-induced condition: uncomplicated Qualified Code(s): F10.920 - Alcohol use, unspecified with intoxication, uncomplicated Patient Disposition: Home, Self-Care Instructions: Alcohol Intoxication (ED) Additional Instructions: Please follow-up with your primary care physician tomorrow. If you have any worsening or new symptoms, please return to the emergency room or call 911 Prescriptions: New ondansetron HCl [Zofran] 4 mg tablet 4 mg PO Q6H PRN (Reason: nausea and vomiting) Qty: 7 RF: 0 No Action metoclopramide HCl [Reglan] 5 mg tablet 5 mg PO Q6H PRN (Reason: nausea and vomiting) Qty: 14 RF: 0 hydroxyzine HCl 50 mg tablet 50 mg PO TID PRN (Reason: nausea and vomiting) Qty: 14 RF: 0 pantoprazole [Protonix] 40 mg tablet,delayed release (DR/EC) 40 mg PO DAILY Qty: 20 RF: 0 prochlorperazine maleate [Compazine] 10 mg tablet 10 mg PO TID PRN (Reason: nausea and vomiting) Qty: 10 RF: 0 ondansetron 4 mg tablet,disintegrating 4 mg PO Q8H PRN (Reason: nausea and vomiting) Qty: 20 RF: 0 promethazine 25 mg suppository 25 mg VT Q6H PRN (Reason: nausea and vomiting) Qty: 12 RF: 0 ondansetron 4 mg tablet,disintegrating 4 mg PO Q8H PRN (Reason: nausea and vomiting) Qty: 20 RF: 0 famotidine 20 mg tablet 20 mg PO BID RF: 0 ondansetron HCl 8 mg tablet PO RF: 0 cyclobenzaprine 5 mg tablet 5 mg PO TID PRN (Reason: muscle spasm) RF: 0 ibuprofen 600 mg tablet PO RF: 0 omeprazole 20 mg capsule,delayed release(DR/EC) 20 mg PO DAILY RF: 0 ondansetron HCl 4 mg tablet 4 mg PO Q6H PRN (Reason: nausea/vomiting) RF: 0 levonorgestrel-ethinyl estrad 0.15 mg-30 mcg (91) tablets,dose pack,3 month PO RF: 0 ondansetron 4 mg tablet,disintegrating 4 mg PO Q6H PRN (Reason: nausea and vomiting) Qty: 60 RF: 0 dicyclomine 10 mg capsule 10 mg PO BID 10 Days Qty: 20 RF: 0
[2020-09-18 07:52] LABS: MANUAL DIFF FLAG NO
[2020-09-18 07:54] LABS: Basophils Percent Auto 0.7 % (0-2); Eosinophils Percent Auto 0.2 % (0-4); Hematocrit 34.9 % (37-47); Hemoglobin 11.4 g/dl (12.0-16.0); Imm Gran Abs Auto 0.01 X10*3/uL (0.00-0.03); Imm Gran Pct Auto 0.2 % (0.0-0.4); Lymphocytes Absolute Auto 1.4 X10*3/uL (1.2-4.9); Lymphocytes Percent Auto 24.6 % (20-40); Mean Corpuscular HGB Conc 32.7 g/dl (31.0-35.0); Mean Corpuscular Hemoglobin 29.6 pg (27.0-33.0); Mean Corpuscular Volume 90.6 fL (80-98); Mean Platelet Volume 10.4 fL (9.4-12.3); Monocytes Absolute Auto 0.5 X10*3/uL (0.1-1.2); Neutrophils Absolute Auto 3.8 X10*3/uL (2.0-8.3); Neutrophils Percent Auto 65.3 % (45-73); Platelet Count 194 X10*3/uL (160-400); Red Blood Count 3.85 X10*6/uL (4.20-5.50); Red Cell Distribution Width 14.5 % (11.0-16.0); White Blood Count 5.8 X10*3/uL (4.8-10.8)
[2020-09-18] MEDS: ondansetron HCL 4 MG/2 ML VIAL IVPUSH (07:54)
[2020-09-18] MEDS: 0.9 % Sodium Chloride 1,000 ML 999 ML IVCONT (07:54)
[2020-09-18 08:00] VITALS: RESP 18
[2020-09-18 08:25] LABS: Anion Gap 16 (12-20); Blood Urea Nitrogen 9 mg/dL (9-16); Calcium 8.9 mg/dL (8.4-10.2); Carbon Dioxide 20 mmol/L (22-29); Chloride 108 mmol/L (96-108); Creatinine Clr Calc Pharmacy 178.3; Estimated Glomerular Filt Rate > 60; Glucose Random 103 mg/dL (60-115); Potassium 3.9 mmol/l (3.3-5.1); Sodium 140 mmol/L (135-145)
== END 2020-09-18 09:02 | disposition home or self-care (01) ==
PROVIDERS: Emergency Provider Emergency Medicine
DX: F10.920 Alcohol use, unspecified with intoxication, uncomplicated (principal); Y90.9 Presence of alcohol in blood, level not specified; R11.2 Nausea with vomiting, unspecified
CPT/HCPCS: 36415; 80048; 85025; 96361; 96374; 99284; 99285; J2405

== ENCOUNTER 2021-10-21 07:27 | Emergency (ER) | payer OTHER, SELFPAY ==
--- NOTE | 2021-10-21 07:31 | ED_ITS ---
HPI - Nausea/Vomiting/Diarrhea General Chief complaint: Nausea/Vomiting/Diarrhea Stated complaint: ABD PAIN W/NAUSEA Time Seen by Provider: 10/21/21 07:30 Source: patient Mode of arrival: EMS Limitations: no limitations History of Present Illness MD elicited complaint: nausea (anxiety) and abdominal pain Pertinent past history: cyclical vomiting (anxiety) Onset (ago): hour(s) (3am today) Associated nausea: Yes Associated abdominal pain: Yes Location of pain: epigastric Pain consistency: intermittent Severity: mild Quality: dull Exacerbating factors: other (anxiety and fear of vomiting) Relieving factors: none Context: marijuana use (hx of cyclical vomiting and anxiety) Associated symptoms: nausea/vomiting (has not vomited) Treatment prior to arrival: other (tried advil PM and THC) Related Data Home Medications Medication Instructions Recorded Confirmed cyclobenzaprine 5 mg tablet 5 mg PO TID PRN 07/23/20 07/13/21 famotidine 20 mg tablet 20 mg PO BID 07/23/20 07/13/21 ibuprofen 600 mg tablet mg PO 07/23/20 07/13/21 levonorgestrel 0.15 mg-ethinyl tab PO 07/23/20 07/13/21 estradiol 30 mcg tablets,3 mos pack(91) ondansetron HCl 4 mg tablet 4 mg PO Q6H PRN 07/23/20 07/13/21 metoclopramide HCl 5 mg tablet 5 mg PO Q6H PRN tab 07/30/20 07/13/21 Previous Rx's Medication Instructions Recorded ondansetron 4 mg disintegrating 4 mg PO Q6H PRN #60 tab 07/23/20 tablet prochlorperazine maleate 10 mg 10 mg PO TID PRN #10 tab 07/28/20 tablet (Compazine) promethazine 25 mg rectal 25 mg IA Q6H PRN #12 ea 07/29/20 suppository dicyclomine 10 mg capsule 10 mg PO BID 10 Days #20 cap 07/30/20 metoclopramide HCl 5 mg tablet 5 mg PO Q6H PRN #14 tab 07/30/20 (Reglan) hydroxyzine HCl 50 mg tablet 50 mg PO TID PRN #14 tab 08/26/20 hydroxyzine HCl 25 mg tablet 25 mg PO TID PRN #30 tab 10/21/21 ondansetron 4 mg disintegrating 4 mg PO Q8H PRN #20 tab 10/21/21 tablet Allergies Allergy/AdvReac Type Severity Reaction Status Date / Time CHICKEN NUGGETS/PATTIES Allergy Mild HIVES Uncoded 07/13/21 13:26 CHEESE CAKE Allergy Unknown HIVES Uncoded 07/13/21 13:26 Review of Systems Verdana 4l Review of Systems: Verdana 4d Verdana 4d Constitutional : No Weight loss, No Fever, No Chills ENT/Mouth : No sore throat, No Rhinorrhea Eyes: No Swelling, No Redness Cardiovascular : No Chest Pain, No SOB, NoEdema Respiratory : No Cough, No Sputum, No Wheezing Gastrointestinal :: Positive Nausea, no Vomiting, no Diarrhea, positive abdominal Pain, No Hematochezia, No Melena Genitourinary : No Dysuria, No Urinary Frequency, No Hematuria, No Urgency Musculoskeletal : No joint pain, No Myalgias, No Joint Swelling Skin : No Skin Lesions, No rash Neuro : No Weakness, No Numbness, No Dizziness, No Headache Psych : pos Anxiety/Panic, No Depression Heme/Lymph: No Bruising, No Lymphadenopathy Endocrine : No Polyuria, No Polydipsia All other systems reviewed and are negative. Gastrointestinal: Gastrointestinal: Reports nausea PMFSH Past Medical History Attestation statement: The following information was validated with the patient. Medical History Anxiety Cyclical vomiting Gastritis GERD (gastroesophageal reflux disease) Nausea & vomiting Surgical History No pertinent past surgical history Family History Family History Father Medical history unknown Mother Medical history unknown Social History Social History Alcohol intake: never Patient Tobacco Use Status: Never used Tobacco Use of substances other than those prescribed or required for medical reasons: Yes Substance Use Type: Marijuana Advance Directives: No Advance Directives Information Provided: No Physical Exam Verdana 4l Vital Signs: Verdana 4d Verdana 4d Vital Signs: Verdana 4d Verdana 4Bd Last Vital Signs Verdana 4d [employer]ing New 4d [employer]ing New 4d Temp 98.7 F 02/03/22 08:13 4d Pulse 92 10/21/21 08:13 [employer]ing New 4d Resp 16 10/21/21 08:13 BP 109/66 10/21/21 08:13 Pulse Ox 100 10/21/21 08:13 BMI result Body Mass Index 16.6 Appearance: Alert. Oriented X3. No acute distress. Anxious Eyes: Pupils equal, round and reactive to light. ENT: Pharynx normal. Neck: Normal inspection. Neck supple. CVS: Normal heart rate and rhythm. Pulses normal. Respiratory: No respiratory distress. Breath sounds normal. Abdomen: Soft and non-tender. Skin: Skin warm and dry. Normal skin color. Normal skin turgor. Extremities: No lower extremity edema. No calf ttp Neuro: Oriented X 3. No motor deficit. No sensory deficit. Course Course Course Narrative: seen by CARE team - plan to follow up as outpatient with her PCP MDM - Nausea/Vomiting/Diarrhea MDM Narrative Medical decision making narrative: 26 yo female with hx of anxiety, cyclical vomiting syndrome presents with anxiety, nausea, fear of vomiting, abdominal pain tried advil PM/THC without relief at this time requesting anxiolytic and to speak to someone about her anxiety. IM ativan ordered. Abdominal exam is benign. Discharge Plan Discharge Clinical Impression: Anxiety Nausea & vomiting Qualifiers: Vomiting type: unspecified Qualified Code(s): R11.2 - Nausea with vomiting, unspecified Patient Disposition: Home, Self-Care Instructions: Acute Nausea and Vomiting (ED), Anxiety (ED) Additional Instructions: return to ED for any worsening symptoms or concerns Prescriptions: New hydroxyzine HCl 25 mg tablet 25 mg PO TID PRN (Reason: anxiety) Qty: 30 0RF ondansetron 4 mg tablet,disintegrating 4 mg PO Q8H PRN (Reason: nausea and vomiting) Qty: 20 0RF No Action metoclopramide HCl [Reglan] 5 mg tablet 5 mg PO Q6H PRN (Reason: nausea and vomiting) Qty: 14 0RF hydroxyzine HCl 50 mg tablet 50 mg PO TID PRN (Reason: nausea and vomiting) Qty: 14 0RF Rx Instructions: p.r.n. anxiety prochlorperazine maleate [Compazine] 10 mg tablet 10 mg PO TID PRN (Reason: nausea and vomiting) Qty: 10 0RF promethazine 25 mg suppository 25 mg IA Q6H PRN (Reason: nausea and vomiting) Qty: 12 0RF famotidine 20 mg tablet 20 mg PO BID 0RF cyclobenzaprine 5 mg tablet 5 mg PO TID PRN (Reason: muscle spasm) 0RF ibuprofen 600 mg tablet PO 0RF ondansetron HCl 4 mg tablet 4 mg PO Q6H PRN (Reason: nausea/vomiting) 0RF levonorgestrel-ethinyl estrad 0.15 mg-30 mcg (91) tablets,dose pack,3 month PO 0RF ondansetron 4 mg tablet,disintegrating 4 mg PO Q6H PRN (Reason: nausea and vomiting) Qty: 60 0RF metoclopramide HCl 5 mg tablet 5 mg PO Q6H PRN0RF dicyclomine 10 mg capsule 10 mg PO BID 10 Days Qty: 20 0RF Referrals: Po,Martín Conte MD [Primary Care Provider] - 2 days Stand Alone Forms: Work/School Release
[2021-10-21 07:33] VITALS: BP 128/77; BP 128/78; PULSE 102; PULSE 95; RESP 18; TEMP 37.2; O2SAT 100; O2SAT 99; BMI 16.6
[2021-10-21] MEDS: LORazepam 2 MG/ML VIAL 1 MG IM (07:43)
[2021-10-21 08:13] VITALS: BP 109/66; PULSE 92; RESP 16; TEMP 37.1; O2SAT 100
--- NOTE | 2021-10-21 09:30 | MHC.CARE ---
Pt is a 26 y/o single, Polish speaking female previously unknown to the CARE Team.? Today, CARE Team received a consult from ED Provider Dr. Kole Barahona for anxiety.? Pt reports that she has been experiencing elevated anxiety for approximately one month and attributes this to her family moving away to [place] on October 12 of this year, leaving her with minimal supports.? 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 She reports always having had struggles with anxiety but this instance has been among the worst. She reports no therapist, though she is interested in securing one as she expressed she felt ?It is time.?? She has no psychiatrist and is presently not being prescribed anything to help with anxiety.? Pt expressed that she will be reaching out to her PCP to schedule an appointment to discuss some medical issues she is experiencing.? She stated she will discuss her anxiety with her Dr. (Breana Bailey) when she sees her and will discuss the possibility of getting a prescription for anxiety medications.? CARE Team will refer pt to [facility] for a therapist today.
== END 2021-10-21 10:07 | disposition home or self-care (01) ==
PROVIDERS: Emergency Provider Emergency Medicine; PCP Internal Medicine
DX: F40.8 Other phobic anxiety disorders (principal); R11.2 Nausea with vomiting, unspecified; F41.9 Anxiety disorder, unspecified
CPT/HCPCS: 96372; 99284; J2060

== ENCOUNTER 2022-09-06 17:58 | Emergency (ER) | payer OTHER, SELFPAY ==
[2022-09-06 18:07] VITALS: BP 124/76; BP 133/71; PULSE 95; PULSE 98; RESP 20; TEMP 36.3; O2SAT 100
--- NOTE | 2022-09-06 18:07 | ED.PSYCH ---
HPI - Psych General Chief Complaint: Anxiety Stated Complaint: ANXIETY ATTACK WHILE GETTING HAIRCUT PER EMS Time Seen by Provider: 09/06/22 18:02 Source: patient and EMS Mode of arrival: EMS Limitations: no limitations History of Present Illness HPI Narrative: 26-year-old female presents stating she has an anxiety attack, patient comes in by ambulance from her hair salon appointment. She tells me she suddenly became anxious and started feeling dizzy which she describes as lightheaded, tells me she has not eaten or drink in a few days use of her anxiety and depression, no known contributing/inciting events. Reports her hands have been cramping over the past 5 minutes. However upon my history taking patient noted to be hyperventilating Patient denies SI and HI. Denies drugs, alcohol tobacco. Denies visual, auditory tactile hallucinations. Denies chest pain, shortness of breath, headache, vision changes, weakness, nausea, vomiting, abdominal pain, urinary changes. Related Data Home Medications Medication Instructions Recorded Confirmed trazodone 50 mg tablet 50 mg PO BEDTIME 09/06/22 09/06/22 Previous Rx's Medication Instructions Recorded sertraline 100 mg tablet 100 mg PO DAILY #90 tabs 06/19/22 lorazepam 1 mg tablet 1 mg PO DAILY PRN anxiety #5 tabs 08/31/22 sertraline 50 mg tablet (Zoloft) 50 mg PO DAILY #30 tabs 08/31/22 Allergies Allergy/AdvReac Type Severity Reaction Status Date / Time CHICKEN NUGGETS/PATTIES Allergy Mild HIVES Uncoded 09/06/22 18:18 CHEESE CAKE Allergy Unknown HIVES Uncoded 09/06/22 18:18 Review of Systems Review of Systems: Constitutional : No Weight loss, No Fever, No Chills, No Fatigue, No Malaise ENT/Mouth : No sore throat, No Rhinorrhea Eyes: No Eye Pain, No Swelling, No Redness Cardiovascular : No Chest Pain, No SOB, No Dyspnea on Exertion, No Orthopnea, No Edema, No Palpitations Respiratory : No Cough, No Sputum, No Wheezing Gastrointestinal : No Nausea, No Vomiting, No Diarrhea, No Constipation, No abdominal Pain, No Hematochezia, No Melena Genitourinary : No Dysuria, No Urinary Frequency, No Hematuria, Musculoskeletal : No joint pain, No Myalgias, No Joint Swelling Skin : No Skin Lesions, No rash Neuro : No Weakness, No Numbness, + Dizziness, No Headache Psych : + Anxiety/Panic, No Depression All other systems reviewed and are negative Yes all other systems are reviewed and are negative COUNTS INCLUDE 234 BEDS AT THE [facility] Past Medical History Attestation statement: The following information was validated with the patient. Source: old records reviewed and nursing notes reviewed Medical History Anxiety Cyclical vomiting Gastritis GERD (gastroesophageal reflux disease) Nausea & vomiting Surgical History No pertinent past surgical history Family History Family History Father Medical history unknown Mother Medical history unknown Social History Social History Housing: Apartment Alcohol intake: never Patient Tobacco Use Status: Never used Tobacco Smoked in Last 30 Days: No e-Cigarette/Vaping Use: Never Used Second Hand Smoke Exposure: Yes Use of substances other than those prescribed or required for medical reasons: Yes Substance Use Type: Marijuana Advance Directives: No Advance Directives Information Provided: No service: No Current occupational status: employed Cognitive needs: No Hearing needs: No Vision needs: No Physical Exam Vital Signs: Vital Signs: Last Vital Signs Temp 97.4 F 09/06/22 18:07 Pulse 98 09/06/22 18:07 Resp 20 09/06/22 18:07 BP 133/71 09/06/22 18:07 Pulse Ox 100 09/06/22 18:07 O2 Del Method 09/06/22 18:07 BMI result Body Mass Index 18.2 Stable vital signs Appearance: Alert.? Oriented X3.? No acute distress.? Patient appears extremely anxious, hyperventilating. Head: Normocephalic, atraumatic, no step-offs or deformities Eyes: Pupils equal, round and reactive to light.? ENT: Pharynx normal.? Neck: Normal inspection.? Neck supple.? CVS: Normal heart rate and rhythm.? Pulses normal.? Respiratory: No respiratory distress.? Breath sounds normal.? Abdomen: Soft and nontender.? Skin: Skin warm and dry.? Normal skin color.? Normal skin turgor.? Extremities: No lower extremity edema.? No calf ttp. 5/5 strength to bilateral upper and lower extremities Neuro: Oriented X 3.? No motor deficit.? No sensory deficit. CN 2-12 intact Course Reevaluation(s) Reevaluation #1: CBC appears to be within normal limits. Chemistry with no acute findings requiring intervention. UA clean. Urine toxicology positive for marijuana. Negative ethanol level. Patient negative for COVID. Patient feeling much better. She spoke to the care team, denies SI and HI. Patient will be set up with outpatient partial hospitalization. Patient not high risk, not meeting inpatient criteria. I feel comfortable disc plan. At this time patient will be discharged home. At time of discharge patient appears much more calm, speaking in full sentences, appears comfortable. Optimistic about plan. She tells me that dizziness has resolved. She is eating and drinking at time of discharge. Educated patient on diagnosis and treatment plan, answered all question, patient verbalizes understanding. At this time patient will be discharged home, advised to return with new or worsening symptoms. Educated on worrisome signs and symptoms and when to return. At this time I feel comfortable discharge home. Time: 19:35 Medications Administered Discontinued Medications Generic Name Dose Route Start Last Admin Trade Name Arnulfoq PRN Reason Stop Dose Admin Lorazepam 1 mg 09/06/22 18:12 09/06/22 18:41 Lorazepam 1 Mg Tablet PO 09/06/22 18:13 1 mg ONCE ONE Administration Medical Decision Making Medical Decision Making [facility] Narrative: 1810 26-year-old female presents with history and physical exam consistent with panic attack, coming from your appointment. No triggering factor. Reports anxiety and depression. Physical exam patient appears extremely anxious. Regular rate and rhythm. Lungs clear. Abdomen soft nontender nondistended. Neuro nonfocal. Ambulatory with steady gait. Dizziness likely secondary to anxiety/poor p.o. intake. I do not suspect posterior stroke and a stroke. Plan at this time basic labs, urine, PELAYO, ethanol, medical clearance and evaluation by [facility] Differential Diagnosis Differential Diagnoses: The differential diagnosis associated with the presentation includes Admission/Observation Consideration of admission/observation: Escalation of care including admission/observation considered Lab Data Result Diagrams: 09/06/22 18:28 09/06/22 18:28 Labs: Lab Results 09/06/22 09/06/22 09/06/22 Range/Units 18:28 18:28 18:28 WBC 6.4 (4.8-10.8) X10*3/uL RBC 4.18 L (4.20-5.50) X10*6/uL Hgb 12.8 (12.0-16.0) g/dl Hct 37.6 (37.0-47.0) % MCV 90.0 (80.0-98.0) fL MCH 30.6 (27.0-33.0) pg MCHC 34.0 (31.0-35.0) g/dl RDW 13.0 (11.0-16.0) % Plt Count 231 (160-400) X10*3/uL MPV 10.0 (9.4-12.3) fL Immature Gran % (Auto) 0.2 (0.0-0.4) % Neut % (Auto) 68.5 (45-73) % Lymph % (Auto) 23.9 (20-40) % [place] % (Auto) 6.6 (2-11) % Eos % (Auto) 0.3 (0-4) % Baso % (Auto) 0.5 (0-2) % Lymph # (Auto) 1.5 (1.2-4.9) X10*3/uL [place] # (Auto) 0.4 (0.1-1.2) X10*3/uL Eos # (Auto) 0.0 (0.0-0.4) X10*3/uL Baso # (Auto) 0.0 (0.0-0.2) X10*3/uL Abs Immat Gran (auto) 0.01 (0.00-0.03) X10*3/uL Absolute Neuts (auto) 4.4 (2.0-8.3) x10*3/uL Absolute Nucleated RBC 0.000 (0.0-0.012) X10*3/uL Nucleated RBC % (auto) 0.0 (0.0-0.2) /100WBC Sodium 138 (135-145) mmol/L Potassium 3.9 (3.3-5.1) mmol/L Chloride 105 (96-108) mmol/L Carbon Dioxide 20 L (22-29) mmol/L Anion Gap 17 (12-20) BUN 9 (9-16) mg/dL Creatinine 0.79 (0.5-1.4) mg/dL Estim Creat Clear Calc 85.8 Estimated GFR > 60 Random Glucose 108 (60-115) mg/dL Calcium 10.0 D (8.4-10.2) mg/dL Total Bilirubin 0.8 (0.0-1.0) mg/dL AST 12 (5-31) U/L ALT 9 (0-31) U/L Alkaline Phosphatase 51 (39-117) U/L Total Protein 7.5 (6.5-8.0) g/dL Albumin 4.8 (3.5-5.0) g/dL Urine Color Urine Appearance Urine pH (5.0-9.0) Ur Specific [place] (1.005-1.025) Urine Protein (Neg-Trace) mg/dL Urine Glucose (UA) (Negative) mg/dL Urine Ketones (Negative) mg/dL Urine Blood (Negative) Urine Nitrite (Negative) Ur Leukocyte Esterase (Negative) Urine Opiates Screen (Not Detect) Urine Fentanyl Screen (Not Detect) Ur Barbiturates Screen (Not Detect) Ur Phencyclidine Scrn (Not Detect) Ur Amphetamines Screen (Not Detect) U Benzodiazepines Scrn (Not Detect) Urine Cocaine Screen (Not Detect) U Marijuana (THC) Screen (Not Detect) Ethyl Alcohol < 10 mg/dL COVID-19 ([facility]) (Negative) COVID-19 Clin Com 09/06/22 09/06/22 09/06/22 Range/Units 18:29 18:45 18:45 WBC (4.8-10.8) X10*3/uL RBC (4.20-5.50) X10*6/uL Hgb (12.0-16.0) g/dl Hct (37.0-47.0) % MCV (80.0-98.0) fL MCH (27.0-33.0) pg MCHC (31.0-35.0) g/dl RDW (11.0-16.0) % Plt Count (160-400) X10*3/uL MPV (9.4-12.3) fL Immature Gran % (Auto) (0.0-0.4) % Neut % (Auto) (45-73) % Lymph % (Auto) (20-40) % [place] % (Auto) (2-11) % Eos % (Auto) (0-4) % Baso % (Auto) (0-2) % Lymph # (Auto) (1.2-4.9) X10*3/uL [place] # (Auto) (0.1-1.2) X10*3/uL Eos # (Auto) (0.0-0.4) X10*3/uL Baso # (Auto) (0.0-0.2) X10*3/uL Abs Immat Gran (auto) (0.00-0.03) X10*3/uL Absolute Neuts (auto) (2.0-8.3) x10*3/uL Absolute Nucleated RBC (0.0-0.012) X10*3/uL Nucleated RBC % (auto) (0.0-0.2) /100WBC Sodium (135-145) mmol/L Potassium (3.3-5.1) mmol/L Chloride (96-108) mmol/L Carbon Dioxide (22-29) mmol/L Anion Gap (12-20) BUN (9-16) mg/dL Creatinine (0.5-1.4) mg/dL Estim Creat Clear Calc Estimated GFR Random Glucose (60-115) mg/dL Calcium (8.4-10.2) mg/dL Total Bilirubin (0.0-1.0) mg/dL AST (5-31) U/L ALT (0-31) U/L Alkaline Phosphatase (39-117) U/L Total Protein (6.5-8.0) g/dL Albumin (3.5-5.0) g/dL Urine Color Yellow Urine Appearance Clear Urine pH 7.5 (5.0-9.0) Ur Specific [place] 1.010 (1.005-1.025) Urine Protein Negative (Neg-Trace) mg/dL Urine Glucose (UA) Negative (Negative) mg/dL Urine Ketones 80 (Negative) mg/dL Urine Blood Negative (Negative) Urine Nitrite Negative (Negative) Ur Leukocyte Esterase Negative (Negative) Urine Opiates Screen Not Detected (Not Detect) Urine Fentanyl Screen Not Detected (Not Detect) Ur Barbiturates Screen Not Detected (Not Detect) Ur Phencyclidine Scrn Not Detected (Not Detect) Ur Amphetamines Screen Not Detected (Not Detect) U Benzodiazepines Scrn Not Detected (Not Detect) Urine Cocaine Screen Not Detected (Not Detect) U Marijuana (THC) Screen POSITIVE H (Not Detect) Ethyl Alcohol mg/dL COVID-19 ([facility]) Negative (Negative) COVID-19 Clin Com See Note Critical Care Time Critical Care Time Critical Care Time: No Discharge Plan Discharge Clinical Impression: Anxiety, Dizziness Patient Disposition: Home, Self-Care Instructions: Anxiety (ED), Dizziness (ED) Additional Instructions: Take your medications as prescribed. If you were prescribed antibiotics today, it is important that you take your medication to their entirety, do not skip any doses, do not finish them early. Follow-up with your primary care provider this week. Return to the emergency department with new or worsening symptoms. Such as fevers, chills, chest pain, shortness of breath, nausea, vomiting, dizziness, headache, vision changes, lethargy In case of emergency call 911 Prescriptions: No Action sertraline 100 mg tablet 100 mg PO DAILY Qty: 90 0RF Rx Instructions: in addition to 50mg dose, total daily dose 150mg trazodone 50 mg tablet 50 mg PO BEDTIME sertraline [Zoloft] 50 mg tablet 50 mg PO DAILY Qty: 30 2RF Rx Instructions: in addition to sertraline 100 mg daily, total sertraline 150 mg daily lorazepam 1 mg tablet 1 mg PO DAILY PRN (Reason: anxiety) Qty: 5 0RF Referrals: Breana Jama MD [Primary Care Provider] - 2 days [facility] [Provider Group] - 2 days Stand Alone Forms: Work/School Release
[2022-09-06 18:16] VITALS: BMI 18.2
[2022-09-06 18:34] LABS: MANUAL DIFF FLAG NO
[2022-09-06 18:35] LABS: Basophils Percent Auto 0.5 % (0-2); Eosinophils Percent Auto 0.3 % (0-4); Hematocrit 37.6 % (37.0-47.0); Hemoglobin 12.8 g/dl (12.0-16.0); Imm Gran Abs Auto 0.01 X10*3/uL (0.00-0.03); Imm Gran Pct Auto 0.2 % (0.0-0.4); Lymphocytes Absolute Auto 1.5 X10*3/uL (1.2-4.9); Lymphocytes Percent Auto 23.9 % (20-40); Mean Corpuscular Hemoglobin 30.6 pg (27.0-33.0); Monocytes Absolute Auto 0.4 X10*3/uL (0.1-1.2); Monocytes Percent Auto 6.6 % (2-11); Neutrophils Absolute Auto 4.4 x10*3/uL (2.0-8.3); Neutrophils Percent Auto 68.5 % (45-73); Platelet Count 231 X10*3/uL (160-400); Red Blood Count 4.18 X10*6/uL (4.20-5.50); White Blood Count 6.4 X10*3/uL (4.8-10.8)
[2022-09-06] MEDS: LORazepam 1 MG TABLET PO (18:41)
[2022-09-06 18:56] LABS: Appearance Urine Clear; Color Urine Yellow; Glucose Urine UA Negative (Negative); Leukocyte Esterase Urine Negative (Negative); Nitrite Urine Negative (Negative); PH 7.5 (5.0-9.0); Urine Blood Negative (Negative); Urine Ketones 80 mg/dL (Negative); Urine Protein Negative (Neg-Trace)
[2022-09-06 18:58] LABS: Ethanol < 10 mg/dL
[2022-09-06 19:00] LABS: Alanine Aminotransferase 9 U/L (0-31); Albumin Level 4.8 g/dL (3.5-5.0); Alkaline Phosphatase 51 U/L (39-117); Anion Gap 17 (12-20); Aspartate Amino Transferase 12 U/L (5-31); Bilirubin Total 0.8 mg/dL (0.0-1.0); Blood Urea Nitrogen 9 mg/dL (9-16); Carbon Dioxide 20 mmol/L (22-29); Chloride 105 mmol/L (96-108); Creatinine Clr Calc Pharmacy 85.8; Estimated Glomerular Filt Rate > 60; Glucose Random 108 mg/dL (60-115); Potassium 3.9 mmol/L (3.3-5.1); Sodium 138 mmol/L (135-145); Total Protein 7.5 g/dL (6.5-8.0)
[2022-09-06 19:12] LABS: COVID-19 Test Negative (Negative); IDNOW Serial# 55D5AD1C
--- NOTE | 2022-09-06 19:18 | PHA.MEDREC ---
Pharmacy Consult ? Medication Reconciliation Pharmacy has completed the medication reconciliation.
[2022-09-06 19:20] LABS: Amphetamine Screen Urine Not Detected (Not Detect); Barbiturates, Urine Not Detected (Not Detect); Benzodiazepines Screen Urine Not Detected (Not Detect); Cannabinoid Screen Urine POSITIVE (Not Detect); Cocaine Screen Urine Not Detected (Not Detect); Fentanyl, urine Not Detected (Not Detect); Opiate Screen Urine Not Detected (Not Detect); Phencyclidine Screen Urine Not Detected (Not Detect)
[2022-09-06 20:15] VITALS: BP 113/68; BP 119/67; PULSE 82; PULSE 91
[2022-09-06 20:16] VITALS: BP 103/73; PULSE 103
[2022-09-06 20:17] VITALS: BP 113/68; PULSE 82; RESP 16; O2SAT 98
--- NOTE | 2022-09-06 21:04 | PC.NURSE ---
Assumed care of pt. at 1900. Pt. lying in hallway bed at this time, still reporting high levels of anxiety. Pt. is physically shaking. Pt. attempted to ambulate to bathroom, however, began to feel dizzy after a few steps. Helped back to bed. Orthostatic VS taken, pt. reports dizziness upon standing, however ortho vitals remain negative. Pt. was eventually able to ambulate to restroom, however, called for help as she began to feel dizzy upon trying to return to bed. Pt. helped back to bed by nearby RN. Pt. lying in bed at this time, with visible shakiness.
[2022-09-06] MEDS: hydrOXYzine HCL 25 MG TABLET PO (22:32)
--- NOTE | 2022-09-06 23:14 | PC.NURSE ---
Pt. still reporting high levels of anxiety at 04/27. Pt. states she doesn't feel safe to drive home at this time. Pt. was medicated with hydroxyzine per NOV.
--- NOTE | 2022-09-07 06:56 | PC.NURSE ---
Pt. awake, stating that she feels a little bit better, and can drive home safely.
== END 2022-09-07 06:59 | disposition home or self-care (01) ==
PROVIDERS: Physician Assistant; Emergency Provider Emergency Medicine; PCP Internal Medicine
DX: F41.9 Anxiety disorder, unspecified (principal); R42 Dizziness and giddiness; Z20.822 Contact with and (suspected) exposure to COVID-19; F12.90 Cannabis use, unspecified, uncomplicated; Z79.899 Other long term (current) drug therapy
CPT/HCPCS: 36415; 80053; 80307; 81003; 82077; 85025; 87635; 99284

== ENCOUNTER 2023-07-26 10:10 | Outpatient (AMB) | payer OTHER, SELFPAY ==
[2023-07-26 10:13] VITALS: BP 116/72; PULSE 96; O2SAT 99; BMI 20.9
--- NOTE | 2023-07-26 10:13 | A.OFFPC_ITS ---
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: No Accompanied by: Self / Same As Patient Allergies CHICKEN NUGGETS/PATTIES Allergy (Mild, Uncoded 09/06/22 18:18) HIVES CHEESE CAKE Allergy (Unknown, Uncoded 09/06/22 18:18) HIVES Tobacco use date assessed: 08/31/22 Dental Screening Dental Screen Date: 07/26/23 Did you have a dental visit in the last 12 months?: Yes Did you have a dental problem in the last 6 months where you did not have access to dental care?: No Was dental information given to patient?: Patient has dentist [facility] Medical History Anxiety Cyclical vomiting Gastritis GERD (gastroesophageal reflux disease) Nausea & vomiting Surgical History No pertinent past surgical history Family History Father Medical history unknown Mother Medical history unknown Social History Housing: Apartment Alcohol intake: never Patient Tobacco Use Status: Never used Tobacco e-Cigarette/Vaping Use: Never Used Second Hand Smoke Exposure: Yes Substance Use Type: Marijuana service: No Current occupational status: employed Cognitive needs: No Hearing needs: No Vision needs: No Questionnaire PHQ-9 Over the last 2 weeks, how often have you been bothered by any of the following problems? 1. Little interest or pleasure in doing things: not at all 2. Feeling down, depressed, or hopeless: not at all 3. Trouble falling or staying asleep, or sleeping too much: not at all 4. Feeling tired or having little energy: not at all 5. Poor appetite or overeating: not at all 6. Feeling bad about yourself - or that you are a failure or have let yourself or your family down: not at all 7. Trouble concentrating on things, such as reading the newspaper or watching television: not at all 8. Moving or speaking so slowly that other people could have noticed. Or the opposite - being so fidgety or restless that you have been moving around a lot more than usual: not at all 9. Thoughts that you would be better off or of hurting yourself in some way: not at all Total score: 0 Depression Screening Interpretation: Negative Depression Screening Done: Yes 77121 - PHQ-9 Billing: Yes Source: Developed by Drs. Josue Lamar, Sumanth Nur and colleagues, with an educational ryanne from [employer]. Thrive Questionnaire Date Thrive assessed: 08/31/22 What is your living situation today?: I have a steady place to live Within the past 12 months, did the food you bought not last and you didn't have the money to get more?: Never true Within the past 12 months, did you worry whether your food would run out before you got money to buy more?: Never true Do you have trouble paying for medicines?: No Do you have trouble getting transportation to medical appointments?: No Do you have trouble paying your heating and electricity bill?: No AUDIT C Alcohol Use Questionnaire (AUDIT-C) 1. How often do you have a drink containing alcohol?: Monthly or less 2. How many drinks containing alcohol do you have on a typical day when you are drinking?: 1 or 2 3. How often do you have six or more drinks on one occasion?: Never Total Score: 1 FRANCISCA-7 AMB Questionnaire FRANCISCA-7 Date FRANCISCA - 7 assessed: 07/26/23 Feeling nervous, anxious, or on edge: 0 = Not at all Not being able to stop or control worryin = Several days Worrying too much about different things: 1 = Several days Trouble relaxin = Nearly every day Being so restless that it is hard to sit still: 0 = Not at all Becoming easily annoyed or irritable: 2 = More than half the days Feeling afraid as if something awful might happen: 1 = Several days Total FRANCISCA-7 score (0-4 normal; 5-9 mild; 10-14 moderate; 15-21 severe): 8 Source: Developed by Drs. Josue Lamar, Sumanth Nur and colleagues, with an educational ryanne from [employer]. FRANCISCA-7 Assessment Billing FRANCISCA-7 Assessment Tool: FRANCISCA-7 Assessment 26494 Physical exam (Primary Care) Vital Signs: Last Vital Signs Pulse 96 07/26/23 10:13 BP 116/72 07/26/23 10:13 Pulse Ox 99 07/26/23 10:13 Oxygen Delivery Method Room Air 07/26/23 10:13 BMI result Body Mass Index 20.9 Tobacco/Smoking Status: Tobacco use Status Tobacco use date assessed 07/26/23 07/26/23 10:46 Patient Tobacco Use Status Never used Tobacco 07/26/23 10:40 e-Cigarette/Vaping Use Never Used 07/26/23 10:40 PHQ-9: PHQ-9 Score PHQ-9: Total score 0 07/26/23 10:40 Depression Screening Interpretation: Negative Thrive Assessment: Date of Thrive Assessment Date Thrive assessed 08/31/22 07/26/23 10:40 Coding Additional Codes FRANCISCA-7 Assessment Billing - FRANCISCA-7 Assessment Tool: FRANCISCA-7 Assessment 24314 ([id number])
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
== END 2023-07-26 11:11 | disposition home or self-care (01) ==
PROVIDERS: PCP Internal Medicine; Visit Provider Physician Assistant
DX: M54.12 Radiculopathy, cervical region (principal); M54.6 Pain in thoracic spine; F41.1 Generalized anxiety disorder
CPT/HCPCS: 99213

== ENCOUNTER 2023-07-26 12:46 | Outpatient (REF) | payer OTHER, SELFPAY ==
--- NOTE | ~2023-07-26 | XR_ITS ---
EXAMINATION: XR CERVICAL SPINE, THORACIC SPINE CLINICAL INFORMATION: Back pain, neck pain COMPARISON: None TECHNIQUE: 3 views of the cervical spine. 3 views of the thoracic spine. FINDINGS: CERVICAL SPINE: Straightening of the normal cervical lordosis. Cervical vertebral body heights and disc space heights are preserved. THORACIC SPINE: Rounded sclerotic focus projecting over the T1 vertebral body on the lateral view. Mild rightward curvature of the thoracic. Minimal multilevel degenerative changes in the thoracic spine. XR/XR cervical spine 3V IMPRESSION: 1. Rounded sclerotic focus projecting over the T1 vertebral body on the lateral view. MRI recommended for further evaluation. 2. Mild rightward curvature of the thoracic.
--- NOTE | ~2023-07-26 | XR_ITS ---
EXAMINATION: XR CERVICAL SPINE, THORACIC SPINE CLINICAL INFORMATION: Back pain, neck pain COMPARISON: None TECHNIQUE: 3 views of the cervical spine. 3 views of the thoracic spine. FINDINGS: CERVICAL SPINE: Straightening of the normal cervical lordosis. Cervical vertebral body heights and disc space heights are preserved. THORACIC SPINE: Rounded sclerotic focus projecting over the T1 vertebral body on the lateral view. Mild rightward curvature of the thoracic. Minimal multilevel degenerative changes in the thoracic spine. XR/XR thoracic spine 3V IMPRESSION: 1. Rounded sclerotic focus projecting over the T1 vertebral body on the lateral view. MRI recommended for further evaluation. 2. Mild rightward curvature of the thoracic.
== END 2023-07-26 12:47 | disposition home or self-care (01) ==
LOC: HO.XRAY 12:46
PROVIDERS: PCP Internal Medicine; Visit Provider Physician Assistant
DX: M54.12 Radiculopathy, cervical region (principal); M54.6 Pain in thoracic spine
CPT/HCPCS: 72040; 72072

== ENCOUNTER 2023-10-31 10:38 | Outpatient (AMB) | payer OTHER, SELFPAY ==
--- NOTE | 2023-10-31 10:34 | MHC.PC.OV ---
Intake Visit Reasons: 3 month f/u [phone] Intake Note: Dr. Waddell's patient telephone appointment for anxiety follow-up. 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 This is the 2nd time speaking with this patient whom has a past medical history significant for anxiety, GERD, cyclic vomiting syndrome.. Continues to have thoracic spine pain with radicular symptoms into her anterior trunk region. She did get x-ray of thoracic spine that did show a T1 bone sclerotic region and MRI was recommended. Unfortunately has not been able to set up MRI unclear as to reason. Also physical therapy was recommended though has not been able to schedule. She has been given cyclobenzaprine which was helpful for the pain. She has been using [id number] analgesics that also has been helpful PFSH Medical History GERD (gastroesophageal reflux disease) Nausea & vomiting Cyclical vomiting Gastritis Anxiety Surgical History No pertinent past surgical history Family History Father Medical history unknown Mother Medical history unknown Social History Housing: Apartment Alcohol intake: never Patient Tobacco Use Status: Never used Tobacco e-Cigarette/Vaping Use: Never Used Second Hand Smoke Exposure: Yes Substance Use Type: Marijuana service: No Current occupational status: employed Cognitive needs: No Hearing needs: No Vision needs: No Questionnaire PHQ-9 Over the last 2 weeks, how often have you been bothered by any of the following problems? 1. Little interest or pleasure in doing things: not at all 2. Feeling down, depressed, or hopeless: not at all 3. Trouble falling or staying asleep, or sleeping too much: not at all 4. Feeling tired or having little energy: not at all 5. Poor appetite or overeating: not at all 6. Feeling bad about yourself - or that you are a failure or have let yourself or your family down: not at all 7. Trouble concentrating on things, such as reading the newspaper or watching television: not at all 8. Moving or speaking so slowly that other people could have noticed. Or the opposite - being so fidgety or restless that you have been moving around a lot more than usual: not at all 9. Thoughts that you would be better off or of hurting yourself in some way: not at all Total score: 0 Depression Screening Interpretation: Negative Depression Screening Done: Yes 02873 - PHQ-9 Billing: Yes Source: Developed by Drs. Josue Lamar, Danielle Babb, Sumanth Metcalf and colleagues, with an educational ryanne from [employer]. Thrive Questionnaire Date Thrive assessed: 10/31/23 I am a: Patient What is your living situation today?: I have a steady place to live Within the past 12 months, did the food you bought not last and you didn't have the money to get more?: Never true Within the past 12 months, did you worry whether your food would run out before you got money to buy more?: Never true Do you have trouble paying for medicines?: No Do you have trouble getting transportation to medical appointments?: No Do you have trouble paying your heating and electricity bill?: No Do you have trouble taking care of your child, family member or friend?: No Do you have trouble with day-to-day activities such as bathing, preparing meals, shopping, managing finances, etc.?: No Are you currently unemployed and looking for a job?: No Are you interested in more education?: No Please select the resources that you would like help with: None Currently or been in a relationship where the following occur: no concerns reported THRIVE Score: 0 AUDIT C Alcohol Use Questionnaire (AUDIT-C) 1. How often do you have a drink containing alcohol?: Monthly or less 2. How many drinks containing alcohol do you have on a typical day when you are drinking?: 1 or 2 3. How often do you have six or more drinks on one occasion?: Never Total Score: 1 FRANCISCA-7 AMB Questionnaire FRANCISCA-7 Date FRANCISCA - 7 assessed: 10/31/23 Feeling nervous, anxious, or on edge: 1 = Several days Not being able to stop or control worryin = More than half the days Worrying too much about different things: 3 = Nearly every day Trouble relaxin = More than half the days Being so restless that it is hard to sit still: 2 = More than half the days Becoming easily annoyed or irritable: 2 = More than half the days Feeling afraid as if something awful might happen: 1 = Several days Total FRANCISCA-7 score (0-4 normal; 5-9 mild; 10-14 moderate; 15-21 severe): 13 Source: Developed by Drs. Josue Lamar, Danielle Babb, Sumanth Metcalf and colleagues, with an educational ryanne from [employer]. FRANCISCA-7 Assessment Billing FRANCISCA-7 Assessment Tool: FRANCISCA-7 Assessment 07254 Review of Systems Const Denies headache(s) Eyes Denies loss of vision ENT Denies vertigo, Denies dizziness, Denies headache(s) and Denies sore throat Card Denies chest pain, Denies leg edema and Denies lightheadedness Resp Denies cough, Denies hemoptysis and Denies wheezing GI Denies abdominal pain, Denies melena, Denies constipation, Denies diarrhea and Denies vomiting Denies urinary frequency, Denies dysuria and Denies urinary urgency Musc Details: + upper middle back pain Reports back pain, Denies arthralgias, Denies joint swelling, Denies numbness and Denies tingling Neuro Denies behavioral changes, Denies vertigo, Denies dizziness, Denies headache(s), Denies loss of vision, Denies memory loss, Denies numbness and Denies tingling Psych Denies anxiety, Denies behavioral changes, Denies depression, Denies memory loss and Denies panic attacks Gagan/Lymph Denies easy bleeding and Denies easy bruising Aller/Immun Denies wheezing Physical exam (Primary Care) Tobacco/Smoking Status: Tobacco use Status Tobacco use date assessed 10/31/23 10/31/23 10:38 Patient Tobacco Use Status Never used Tobacco 10/31/23 10:38 e-Cigarette/Vaping Use Never Used 10/31/23 10:38 PHQ-9: PHQ-9 Score PHQ-9: Total score 0 10/31/23 10:40 Depression Screening Interpretation: Negative Thrive Assessment: Date of Thrive Assessment Date Thrive assessed 10/31/23 10/31/23 10:38 Currently or been in a relationship where the following occur: no concerns reported Telehealth Telehealth Location of provider rendering services: practice address Location of patient: address on file Patient Identification confirmed using: Name, : Yes Telehealth method: voice only Patient verbally consented to treatment: Yes Patient verbally consented to billing insurance company: Yes Patient informed of any privacy concerns related to visit: Yes Minutes spent on Phone/Video with Pt.: 11 Assessment and Plan Assessment & Plan (1) Thoracic spine pain: Code(s): M54.6 - Pain in thoracic spine Plan: As per HPI patient continues to have upper middle back pain. X-ray does show a T1 bone sclerotic region. MRI of thoracic spine has been recommended by Radiology. Will try for MRI order again. Will give patient Flexeril to use on a p.r.n. basis for her pain. Will likely benefit from physical therapy as well. (2) Bony sclerosis: Code(s): Q78.2 - Osteopetrosis Plan: As above (3) Anxiety: Code(s): F41.9 - Anxiety disorder, unspecified Plan: Reviewed francisca 7 score which is positive for anxiety which has been existing condition for her. She continues on mental health medications that are helpful for her mental health. Coding Level of Care Code Tele Est Pt Level 3 (31892) Diagnoses Thoracic spine pain M54.6 Bony sclerosis Q78.2 Anxiety F41.9 Additional Codes FRANCISCA-7 Assessment Billing - FRANCISCA-7 Assessment Tool: FRANCISCA-7 Assessment [id number] ([id number])
== END 2023-10-31 11:21 | disposition home or self-care (01) ==
LOC: HO.HMGH 10:38
PROVIDERS: PCP Internal Medicine; Visit Provider Physician Assistant
DX: M54.6 Pain in thoracic spine (principal); Q78.2 Osteopetrosis; F41.9 Anxiety disorder, unspecified
CPT/HCPCS: 99213

== ENCOUNTER 2023-12-05 15:09 | Outpatient (REF) | payer OTHER, SELFPAY ==
--- NOTE | ~2023-12-05 | MR_ITS ---
EXAMINATION: MR THORACIC SPINE WITHOUT AND WITH CONTRAST CLINICAL INFORMATION: Rounded sclerotic lesion at T1 on radiograph COMPARISON: Cervical and thoracic radiographs 07/26/2023 TECHNIQUE: MRI of the thoracic spine was obtained using routine sequences with and without contrast. Intravenous contrast: Gadavist 5 mL. FINDINGS: The normal thoracic kyphosis is preserved. No significant spondylolisthesis. Thoracic vertebral body heights are maintained. Prominence of the bilateral T1 costovertebral junctions may correspond to the rounded sclerosis on prior radiograph. Otherwise, no expansile or destructive osseous lesion is visualized. The cervical spinal cord is normal in signal intensity. No abnormal intramedullary enhancement. No significant spinal canal stenosis. The neural foramen remain patent. Partially visualized degenerative changes at C6-C7 with probable moderate canal stenosis. Subcentimeter T2 hyperintense foci in the liver and left kidney are too small to fully characterize but likely represent cysts. MR/MR thoracic spine wo/w con IMPRESSION: Prominence of the bilateral T1 costovertebral junctions may correspond to the rounded sclerosis on prior radiograph. Otherwise, no expansile or destructive osseous lesion is visualized. Partially visualized degenerative changes at C6-C7 with probable moderate canal stenosis.
[2023-12-05] MEDS: gadobutroL 7.5 ML VIAL IVPUSH (16:23)
== END 2023-12-05 15:10 | disposition home or self-care (01) ==
LOC: HO.MRI 15:09
PROVIDERS: PCP Internal Medicine; Visit Provider Physician Assistant
DX: Q78.2 Osteopetrosis (principal)
CPT/HCPCS: 72157; A9585

== ENCOUNTER 2024-04-01 09:16 | Outpatient (AMB) | payer OTHER, SELFPAY ==
[2024-04-01 09:23] VITALS: BP 104/62; PULSE 78; O2SAT 98; BMI 20.8
--- NOTE | 2024-04-01 09:23 | MHC.PC.OV ---
Vital Signs 04/01/24 09:23 Height 5 ft 2 in Weight 114 lb BMI 20.8 BP 104/62 Blood Pressure Location Lt brachial Position Sitting Pulse 78 Pulse Source Pulse Oximeter Pulse Oximetry (%) 98 Oxygen Delivery Method Room Air Intake Visit Reasons: Annual Exam Intake Note: Patient came in with Physician Statement form for work. Central Scheduler Required: No Accompanied by: Self / Same As Patient Allergies CHICKEN NUGGETS/PATTIES Allergy (Mild, Uncoded 04/01/24 09:46) HIVES CHEESE CAKE Allergy (Unknown, Uncoded 04/01/24 09:46) HIVES Medication List - Last Reconciled 04/01/24 by Breana Hernández MD trazodone 50 mg PO BEDTIME 90 days Tobacco use date assessed: 10/31/23 Dental Screening Dental Screen Date: 04/01/24 Did you have a dental visit in the last 12 months?: Yes Did you have a dental problem in the last 6 months where you did not have access to dental care?: No Was dental information given to patient?: Patient has dentist HPI HPI Comments History of Present Illness Details This is a 28-year-old female that comes for her physical exam. Pap smear done at [facility] in 2023 was normal as per patient. No acute complaints. [facility], LAT[facility] Medical History GERD (gastroesophageal reflux disease) Nausea & vomiting Cyclical vomiting Gastritis Anxiety Surgical History No pertinent past surgical history Family History Father Medical history unknown Mother Medical history unknown Social History (Updated 04/01/24 @ 09:50 by Breana Hernández MD) Housing: Apartment Alcohol intake: current Alcohol intake frequency: a few times a month Alcohol type: hard liquor Patient Tobacco Use Status: Never used Tobacco e-Cigarette/Vaping Use: Never Used Second Hand Smoke Exposure: Yes Substance Use Type: Marijuana service: No Current occupational status: employed Cognitive needs: No Hearing needs: No Vision needs: No Questionnaire PHQ-9 Over the last 2 weeks, how often have you been bothered by any of the following problems? 1. Little interest or pleasure in doing things: not at all 2. Feeling down, depressed, or hopeless: not at all 3. Trouble falling or staying asleep, or sleeping too much: not at all 4. Feeling tired or having little energy: not at all 5. Poor appetite or overeating: not at all 6. Feeling bad about yourself - or that you are a failure or have let yourself or your family down: not at all 7. Trouble concentrating on things, such as reading the newspaper or watching television: not at all 8. Moving or speaking so slowly that other people could have noticed. Or the opposite - being so fidgety or restless that you have been moving around a lot more than usual: not at all 9. Thoughts that you would be better off or of hurting yourself in some way: not at all Total score: 0 Depression Screening Interpretation: Negative Depression Screening Done: Yes 68506 - PHQ-9 Billing: Yes Source: Developed by Drs. Josue Lamar, Danielle Babb, Sumanth Metcalf and colleagues, with an educational ryanne from [employer]. Thrive Questionnaire Date Thrive assessed: 10/31/23 AUDIT C Alcohol Use Questionnaire (AUDIT-C) 1. How often do you have a drink containing alcohol?: Monthly or less 2. How many drinks containing alcohol do you have on a typical day when you are drinking?: 1 or 2 3. How often do you have six or more drinks on one occasion?: Never Total Score: 1 Score Reviewed/Action Taken: No FRANCISCA-7 AMB Questionnaire FRANCISCA-7 Date FRANCISCA - 7 assessed: 04/01/24 Feeling nervous, anxious, or on edge: 2 = More than half the days Not being able to stop or control worryin = More than half the days Worrying too much about different things: 2 = More than half the days Trouble relaxin = More than half the days Being so restless that it is hard to sit still: 1 = Several days Becoming easily annoyed or irritable: 1 = Several days Feeling afraid as if something awful might happen: 1 = Several days Total FRANCISCA-7 score (0-4 normal; 5-9 mild; 10-14 moderate; 15-21 severe): 11 Source: Developed by Drs. Josue L. BriandaDanielle lopez, Sumanth Metcalf and colleagues, with an educational ryanne from [employer]. FRANCISCA-7 Assessment Billing FRANCISCA-7 Assessment Tool: FRANCISCA-7 Assessment 72325 Review of Systems Const All systems reviewed & are unremarkable except as noted in HPI and below ENT Denies change in voice, Denies nasal discharge and Denies sinus pain Card Denies chest pain at rest, Denies chest pain with activity, Denies edema, Denies irregular heart rhythm, Denies claudication, Denies dyspnea, Denies dyspnea on exertion, Denies orthopnea, Denies paroxysmal nocturnal dyspnea and Denies slow heart rate Resp Denies cough, Denies dyspnea and Denies dyspnea on exertion GI Denies abdominal pain, Denies change in bowel habits, Denies excessive flatus, Denies nausea and Denies vomiting Denies urinary incontinence, Denies urinary hesitancy and Denies urinary urgency Musc Denies atrophy, Denies deformity and Denies limited range of motion Physical exam (Primary Care) Vital Signs: Last Vital Signs Pulse 78 04/01/24 09:23 BP 104/62 04/01/24 09:23 Pulse Ox 98 04/01/24 09:23 Oxygen Delivery Method Room Air 04/01/24 09:23 BMI result Body Mass Index 20.8 Tobacco/Smoking Status: Tobacco use Status Tobacco use date assessed 10/31/23 04/01/24 09:24 Patient Tobacco Use Status Never used Tobacco 04/01/24 09:24 e-Cigarette/Vaping Use Never Used 04/01/24 09:24 PHQ-9: PHQ-9 Score PHQ-9: Total score 0 04/01/24 09:24 Depression Screening Interpretation: Negative Thrive Assessment: Date of Thrive Assessment Date Thrive assessed 10/31/23 04/01/24 09:24 [facility] Head: Yes normal to inspection, Yes normocephalic and Yes atraumatic Ears: external ears normal Eyes General: appearance normal, both eyes and all related structures Eyelids: Yes eyelids normal Conjunctivae: conjunctivae normal Neck Neck: Yes normal visual inspection and Yes supple Resp Effort & Inspection: normal respiratory effort Auscultation: clear to auscultation bilaterally Cardio Jugular venous distension: no JVD Rate: regular rate Rhythm: regular rhythm Heart sounds: S1 normal heart sound present and S2 normal heart sound present GI Inspection: Yes normal to inspection Palpation (GI): Soft to palpation and nontender Auscultation: normal bowel sounds Skin General skin exam: no rashes or lesions noted Neuro General: no focal motor deficits Extrem General: Yes full ROM Psych Appearance: grossly normal Assessment and Plan Assessment & Plan (1) Physical exam: Code(s): Z00.00 - Encounter for general adult medical examination without abnormal findings Plan: Repeat in a year. Orders: Orders Lipid Panel Today Z00.00 - Encounter for general adult medical examination without abnormal findings Comprehensive [place]. Panel Fast Today Z00.00 - Encounter for general adult medical examination without abnormal findings Coding Level of Care Code Est Pt Prev Care 18-39y(22769) Diagnoses Physical exam Z00.00 Additional Codes FRANCISCA-7 Assessment Billing - FRANCISCA-7 Assessment Tool: FRANCISCA-7 Assessment 98512 ([id number]) Time Spent (min) 30
== END 2024-04-01 11:45 | disposition home or self-care (01) ==
PROVIDERS: PCP Internal Medicine; Visit Provider Internal Medicine
DX: Z00.00 Encounter for general adult medical examination without abnormal findings (principal)
CPT/HCPCS: 99395

== ENCOUNTER 2024-05-24 13:14 | Emergency (ER) | payer OTHER, SELFPAY ==
[2024-05-24 13:29] VITALS: BP 122/70; PULSE 99; O2SAT 99; BMI 18.9
--- NOTE | 2024-05-24 13:36 | ED_ITS ---
HPI - Anxiety General Chief Complaint: Anxiety Stated Complaint: ANXIETY,SYNCOPE, WEAKNESS, PER EMS Time Seen by Provider: 05/24/24 13:19 Source: patient and EMS Mode of arrival: EMS Limitations: no limitations History of Present Illness ED Provider: Cyril Martinez PA-C HPI narrative: 28 yo female with history of anxiety and panic attacks presents to the ER via EMS for evaluation of increased anxiety since yesterday associated with hyperventilation, tingling in the hands, vomiting and syncope x2. Patient reportedly had increased anxiety since yesterday. She took her trazodone and hydroxyzine with minimal relief. She states she had nightmares last night, waking up with even worsened anxiety today. She developed hyperventilation, increased panic. She called crisis. She ended up having 2 brief syncopal events that were witnessed by crisis so EMS was called. She states she has a history of similar presentations and not to call the ambulance but they encouraged her to come to the ER for evaluation. Patient reports poorly-controlled anxiety despite talking to her therapist and taking her medications as prescribed. She is frustrated and depressed but not suicidal or homicidal. She denies any chest pain, shortness of breath, abdominal pain. She states when she stopped shaking she gets nauseous and vomits. complaint: anxiety and other (Nausea, vomiting, tingling) Onset (ago): day(s) (1) Symptoms: extremity numbness/tingling Severity: similar to previous episodes Quality: worsening Place: home History of similar episodes: Yes Relieving factors: nothing Exacerbating factors: nothing Associated symptoms: nausea/vomiting and syncope Related Data Previous Rx's ?Medication ?Instructions ?Recorded trazodone 50 mg tablet 50 mg PO BEDTIME 90 days #90 tabs 10/30/22 Allergies Allergy/AdvReac Type Severity Reaction Status Date / Time CHICKEN NUGGETS/PATTIES Allergy Mild HIVES Uncoded 05/24/24 13:30 CHEESE CAKE Allergy Unknown HIVES Uncoded 05/24/24 13:30 Review of Systems 2 Review of Systems: Yes all other systems are reviewed and are negative PMFSH Past Medical History Medical History GERD (gastroesophageal reflux disease) Nausea & vomiting Cyclical vomiting Gastritis Anxiety Surgical History No pertinent past surgical history Family History Family History Father Medical history unknown Mother Medical history unknown Social History Social History (Updated 04/01/24 @ 09:50 by Breana Hernández MD) Housing: Apartment Alcohol intake: current Alcohol intake frequency: a few times a month Alcohol type: hard liquor Patient Tobacco Use Status: Never used Tobacco e-Cigarette/Vaping Use: Never Used Second Hand Smoke Exposure: Yes Substance Use Type: Marijuana Advance Directives: No Advance Directives Information Provided: Yes Do you have a plan to hurt others: No Plan service: No Current occupational status: employed Cognitive needs: No Hearing needs: No Vision needs: No Physical Exam 2 Vital Signs: Vital Signs: Last Vital Signs Temp 98.2 F 05/24/24 15:32 Pulse 93 05/24/24 15:32 Resp 14 05/24/24 15:32 BP 100/60 05/24/24 15:32 Pulse Ox 100 05/24/24 15:32 O2 Del Method Room Air 05/24/24 15:32 BMI result Body Mass Index 18.9 Appearance: Alert. Oriented X3. Restless, shaking her legs, hyperventilating Head: normocephalic, atraumatic. Eyes: Pupils equal, round and reactive to light. ENT: Pharynx normal. No tonsillar swelling or exudate. Neck: Normal inspection. Neck supple. CVS: Normal heart rate and rhythm. Pulses normal. Respiratory: No respiratory distress. Breath sounds normal. Abdomen: Soft and nontender. +BS x4 Skin: Skin warm and dry. Normal skin color. Normal skin turgor. No rashes. Extremities: No lower extremity edema. No joint swelling. Neuro/psych: Oriented X 3. No motor deficit. No sensory deficit. CN II-XII intact. Normal speech and cognition. Briefly makes eye contact, anxious, tremulous Medications Administered Discontinued Medications Generic Name Dose Route Start Last Admin Trade Name Freq PRN Reason Stop Dose Admin Lorazepam 2 mg 05/24/24 13:36 05/24/24 15:21 Lorazepam 1 Mg Tablet PO 05/24/24 13:37 Not Given ONCE ONE Ondansetron HCl 4 mg 05/24/24 13:36 05/24/24 15:21 Ondansetron Odt 4 Mg Tab.Pipe MILLER 05/24/24 13:37 Not Given ONCE ONE Medical Decision Making Medical Decision Making [facility] Narrative: 28-year-old female with history of panic attack and anxiety disorder presents to the ER for evaluation of syncope x2 in the setting of hyperventilation and panic attack today. Patient arrives to the ER with some sinus tachycardia, vital signs otherwise stable. She is anxious and restless, shaking her legs. Her lab workup today does not show any acute abnormalities. She was ordered for Ativan and Zofran for anxiety however this was not given, she is feeling better without medications I would like to go home. She has history of syncope in the setting of panic attack. Doubt any cardiac arrhythmia. She is feeling better would like to go home. She will continue her trazodone and p.r.n. hydroxyzine. She will follow-up with her therapist as she would like to get a psychiatrist be started on other medications for anxiety. She is not suicidal or homicidal. She would like a work note for Monday in case the anxiety persists and she does not feel up to going to work. No emergent need to see crisis today. She is stable for discharge home with outpatient follow-up. Differential Diagnosis Differential Diagnoses: The differential diagnosis associated with the presentation includes Panic attack, hyperventilation, pots, vasovagal episode, cardiac arrhythmia less likely Admission/Observation Consideration of admission/observation: Escalation of care including admission/observation considered Lab Data [facility] Lab Attestation statement: I reviewed the patient's lab results. Mild anemia, no major metabolic derangement 05/24/24 14:03 05/24/24 14:03 Labs: Lab Results 05/24/24 Range/Units 14:03 WBC 6.8 (4.8-10.8) X10*3/uL RBC 3.96 L (4.20-5.50) X10*6/uL Hgb 12.1 (12.0-16.0) g/dl Hct 35.7 L (37.0-47.0) % MCV 90.2 (80.0-98.0) fL MCH 30.6 (27.0-33.0) pg MCHC 33.9 (31.0-35.0) g/dl RDW 13.6 (11.0-16.0) % Plt Count 243 (160-400) X10*3/uL MPV 10.4 (9.4-12.3) fL Immature Gran % (Auto) 0.1 (0.0-0.4) % Neut % (Auto) 86.9 H (45-73) % Lymph % (Auto) 9.4 L (20-40) % [place] % (Auto) 3.5 (2-11) % Eos % (Auto) 0.0 (0-4) % Baso % (Auto) 0.1 (0-2) % Lymph # (Auto) 0.6 L (1.2-4.9) X10*3/uL [place] # (Auto) 0.2 (0.1-1.2) X10*3/uL Eos # (Auto) 0.0 (0.0-0.4) X10*3/uL Baso # (Auto) 0.0 (0.0-0.2) X10*3/uL Abs Immat Gran (auto) 0.01 (0.00-0.03) X10*3/uL Absolute Neuts (auto) 5.9 (2.0-8.3) x10*3/uL Absolute Nucleated RBC 0.000 (0.0-0.012) X10*3/uL Nucleated RBC % (auto) 0.0 (0.0-0.2) /100WBC Sodium 140 (135-145) mmol/L Potassium 3.5 (3.3-5.1) mmol/L Chloride 109 H (96-108) mmol/L Carbon Dioxide 19 L (22-29) mmol/L Anion Gap 16 (12-20) BUN 9 (9-16) mg/dL Creatinine 0.77 (0.5-1.4) mg/dL Estim Creat Clear Calc 89.4 Estimated GFR > 60 Random Glucose 101 (60-115) mg/dL Calcium 9.7 (8.4-10.2) mg/dL Magnesium 1.7 (1.6-2.6) mg/dL Total Bilirubin 0.8 (0.0-1.0) mg/dL Direct Bilirubin 0.3 (0.0-0.5) mg/dL AST 15 (5-31) U/L ALT 12 (0-31) U/L Alkaline Phosphatase 47 (39-117) U/L Total Protein 7.5 (6.5-8.0) g/dL Albumin 4.5 (3.5-5.0) g/dL Urine Color Yellow Urine Appearance Clear Urine pH 7.5 (5.0-9.0) Ur Specific [place] 1.020 (1.005-1.025) Urine Protein Trace (Neg-Trace) mg/dL Urine Glucose (UA) Negative (Negative) mg/dL Urine Ketones >=160 (Negative) mg/dL Urine Blood Negative (Negative) Urine Nitrite Negative (Negative) Ur Leukocyte Esterase Negative (Negative) Urine Test NEGATIVE (NEGATIVE) Urine Opiates Screen Not Detected (Not Detect) Ur Buprenorphine Scrn Not Detected (Not Detect) ng/mL Ur Oxycodone Screen Not Detected (Not Detect) ng/mL Urine Methadone Screen Not Detected (Not Detect) ng/mL Urine Fentanyl Screen Not Detected (Not Detect) Ur Barbiturates Screen Not Detected (Not Detect) Ur Phencyclidine Scrn Not Detected (Not Detect) Ur Amphetamines Screen Not Detected (Not Detect) U Benzodiazepines Scrn Not Detected (Not Detect) Urine Cocaine Screen Not Detected (Not Detect) U Marijuana (THC) Screen POSITIVE H (Not Detect) Independent Interpretation I performed an independent interpretation of an: EKG Interpretation: EKG with normal sinus rhythm, ventricular rate 97 beats per minute, normal UT interval, normal QTC, no ST segment elevations or depressions from no change from prior done in 08/2020 Independent Historian Clinical information obtained from an independent historian. History obtained from or confirmed by: EMS External Record Review External record reviewed: Outpatient record, Prior outpatient labs and Prior outpatient radiology Tests considered The following testing was considered but not selected: Considered CT head however there was no trauma or head strike Prescription Management I considered prescription management with: Other (Anxiolytic) Chronic Conditions Patient?s care impacted by: Other (Anxiety and panic attacks) Social Determinants Patient?s care significantly limited by Social Determinants of Health including: Problems related to primary support group and Other Social Determinant of Health Critical Care Time Critical Care Time Critical Care Time: No Discharge Plan Discharge Clinical Impression: Anxiety, Hyperventilation Patient Disposition: Home, Self-Care Instructions: Hyperventilation (ED), Panic Disorder (ED), Anxiety (ED) Additional Instructions: Your lab workup and EKG today were reassuring. Your passing out episodes were due to hyperventilation and anxiety. Do your best to control your breathing with slow deep breaths to prevent recurrent passing-out episodes. Recommend following up with your therapist and a psychiatrist for further evaluation of different medications that can help you If you develop new or worsening symptoms call 911 or come back to the ER for further evaluation. Prescriptions: No Action trazodone 50 mg tablet 50 mg PO BEDTIME 90 Days Qty: 90 1RF Referrals: [facility] [Provider Group] Breana Jama MD [Primary Care Provider] - Stand Alone Forms: Work/School Release Interventions: ED Discharge Assessment Last Done: 05/24/24 15:32 Discharge Date/Time: 05/24/24 15:33 Print Language: Jamaican
--- NOTE | 2024-05-24 13:36 | ECG_ITS ---
Test Reason : anxiety Blood Pressure : / mmHG Vent. Rate : 097 BPM Atrial Rate : 097 BPM P-R Int : 128 ms QRS Dur : 076 ms QT Int : 352 ms P-R-T Axes : 059 077 048 degrees QTc Int : 447 ms Normal sinus rhythm Normal ECG When compared with ECG of 26-AUG-2020 05:57, No significant change was found Referred By: Mary Martinez Electronically Signed By:NIGEL BAER
[2024-05-24 13:43] VITALS: BP 112/67; PULSE 91; RESP 28; TEMP 36.9; O2SAT 99
[2024-05-24 14:09] LABS: MANUAL DIFF FLAG NO
[2024-05-24 14:11] LABS: Basophils Percent Auto 0.1 % (0-2); Hematocrit 35.7 % (37.0-47.0); Hemoglobin 12.1 g/dl (12.0-16.0); Imm Gran Abs Auto 0.01 X10*3/uL (0.00-0.03); Imm Gran Pct Auto 0.1 % (0.0-0.4); Lymphocytes Absolute Auto 0.6 X10*3/uL (1.2-4.9); Lymphocytes Percent Auto 9.4 % (20-40); Mean Corpuscular HGB Conc 33.9 g/dl (31.0-35.0); Mean Corpuscular Hemoglobin 30.6 pg (27.0-33.0); Mean Corpuscular Volume 90.2 fL (80.0-98.0); Mean Platelet Volume 10.4 fL (9.4-12.3); Monocytes Absolute Auto 0.2 X10*3/uL (0.1-1.2); Monocytes Percent Auto 3.5 % (2-11); Neutrophils Absolute Auto 5.9 x10*3/uL (2.0-8.3); Neutrophils Percent Auto 86.9 % (45-73); Platelet Count 243 X10*3/uL (160-400); Red Blood Count 3.96 X10*6/uL (4.20-5.50); Red Cell Distribution Width 13.6 % (11.0-16.0); White Blood Count 6.8 X10*3/uL (4.8-10.8)
[2024-05-24 14:13] LABS: Appearance Urine Clear; Color Urine Yellow; Glucose Urine UA Negative (Negative); Leukocyte Esterase Urine Negative (Negative); Nitrite Urine Negative (Negative); PH 7.5 (5.0-9.0); Urine Blood Negative (Negative); Urine Ketones >=160 mg/dL (Negative); Urine Protein Trace mg/dL (Neg-Trace)
[2024-05-24 14:15] LABS: UPreg QC Valid YES; Urine Pregnancy NEGATIVE (NEGATIVE)
[2024-05-24 14:23] LABS: Amphetamine Screen Urine Not Detected (Not Detect); Barbiturates, Urine Not Detected (Not Detect); Benzodiazepines Screen Urine Not Detected (Not Detect); Buprenorphine Scr Not Detected (Not Detect); Cannabinoid Screen Urine POSITIVE (Not Detect); Cocaine Screen Urine Not Detected (Not Detect); Fentanyl, urine Not Detected (Not Detect); Methadone Screen, Urine Not Detected (Not Detect); Opiate Screen Urine Not Detected (Not Detect); Oxycodone Screen Urine Not Detected (Not Detect); Phencyclidine Screen Urine Not Detected (Not Detect)
[2024-05-24 14:31] LABS: Alanine Aminotransferase 12 U/L (0-31); Albumin Level 4.5 g/dL (3.5-5.0); Alkaline Phosphatase 47 U/L (39-117); Anion Gap 16 (12-20); Aspartate Amino Transferase 15 U/L (5-31); Bilirubin Direct 0.3 mg/dL (0.0-0.5); Bilirubin Total 0.8 mg/dL (0.0-1.0); Blood Urea Nitrogen 9 mg/dL (9-16); Calcium 9.7 mg/dL (8.4-10.2); Carbon Dioxide 19 mmol/L (22-29); Chloride 109 mmol/L (96-108); Creatinine Clr Calc Pharmacy 89.4; Estimated Glomerular Filt Rate > 60; Glucose Random 101 mg/dL (60-115); Magnesium 1.7 mg/dL (1.6-2.6); Potassium 3.5 mmol/L (3.3-5.1); Sodium 140 mmol/L (135-145); Total Protein 7.5 g/dL (6.5-8.0)
[2024-05-24 15:32] VITALS: BP 100/60; PULSE 93; RESP 14; TEMP 36.8; O2SAT 100
== END 2024-05-24 15:33 | disposition home or self-care (01) ==
PROVIDERS: Physician Assistant; Emergency Provider Emergency Medicine Emergency Medical Services; PCP Internal Medicine
DX: F41.9 Anxiety disorder, unspecified (principal); R06.4 Hyperventilation; R11.2 Nausea with vomiting, unspecified; F12.90 Cannabis use, unspecified, uncomplicated; Z79.899 Other long term (current) drug therapy
CPT/HCPCS: 36415; 80048; 80076; 80307; 81003; 81025; 83735; 85025; 93005; 99283

== ENCOUNTER 2024-08-29 22:04 | Emergency (ER) | payer OTHER, SELFPAY ==
[2024-08-29 22:09] VITALS: BP 130/89; BP 136/80; PULSE 115; PULSE 120; RESP 28; TEMP 37; O2SAT 100; O2SAT 98; BMI 20.6
[2024-08-29] MEDS: LORazepam 1 MG TABLET 2 MG PO (22:35)
[2024-08-29] MEDS: Ondansetron ODT 4 MG TAB.RAPDIS TRANSLINGU (22:35)
--- NOTE | 2024-08-29 22:37 | MHC.EDTECH ---
blood draw delayed due to pt extreme anxiety. rn aware.
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
--- NOTE | 2024-08-30 05:43 | PC.NURSE ---
Patient slept through the night, Ativan 2 mg po administered at 2235 was effective for the panic attack, no behavior and safety concerns, care consult ordered/pending evaluation, med rec completed/currently not on any education, VSS, will continue to monitor
[2024-08-30 06:03] LABS: MANUAL DIFF FLAG NO
[2024-08-30 06:06] LABS: Basophils Percent Auto 0.4 % (0-2); Eosinophils Percent Auto 0.1 % (0-4); Hematocrit 36.7 % (37.0-47.0); Hemoglobin 12.1 g/dl (12.0-16.0); Imm Gran Abs Auto 0.01 X10*3/uL (0.00-0.03); Imm Gran Pct Auto 0.1 % (0.0-0.4); Lymphocytes Absolute Auto 1.8 X10*3/uL (1.2-4.9); Mean Corpuscular Hemoglobin 30.7 pg (27.0-33.0); Mean Corpuscular Volume 93.1 fL (80.0-98.0); Mean Platelet Volume 10.2 fL (9.4-12.3); Monocytes Absolute Auto 0.5 X10*3/uL (0.1-1.2); Monocytes Percent Auto 6.4 % (2-11); Neutrophils Absolute Auto 5.1 x10*3/uL (2.0-8.3); Platelet Count 216 X10*3/uL (160-400); Red Blood Count 3.94 X10*6/uL (4.20-5.50); Red Cell Distribution Width 13.6 % (11.0-16.0); White Blood Count 7.4 X10*3/uL (4.8-10.8)
[2024-08-30 06:08] LABS: Appearance Urine Cloudy; Color Urine Yellow; Glucose Urine UA Negative (Negative); Leukocyte Esterase Urine Negative (Negative); Nitrite Urine Negative (Negative); Urine Blood Negative (Negative); Urine Ketones 80 mg/dL (Negative); Urine Protein Trace mg/dL (Neg-Trace)
[2024-08-30 06:09] LABS: UPreg QC Valid YES; Urine Pregnancy NEGATIVE (NEGATIVE)
[2024-08-30 06:15] LABS: Amphetamine Screen Urine Not Detected (Not Detect); Barbiturates, Urine Not Detected (Not Detect); Benzodiazepines Screen Urine Not Detected (Not Detect); Buprenorphine Scr Not Detected (Not Detect); Cannabinoid Screen Urine POSITIVE (Not Detect); Cocaine Screen Urine Not Detected (Not Detect); Fentanyl, urine Not Detected (Not Detect); Methadone Screen, Urine Not Detected (Not Detect); Opiate Screen Urine Not Detected (Not Detect); Oxycodone Screen Urine Not Detected (Not Detect); Phencyclidine Screen Urine Not Detected (Not Detect)
[2024-08-30 06:25] LABS: Alanine Aminotransferase 16 U/L (0-31); Albumin Level 4.2 g/dL (3.5-5.0); Alkaline Phosphatase 47 U/L (39-117); Anion Gap 12 (12-20); Aspartate Amino Transferase 21 U/L (5-31); Bilirubin Total 0.9 mg/dL (0.0-1.0); Blood Urea Nitrogen 10 mg/dL (9-16); Calcium 8.8 mg/dL (8.4-10.2); Carbon Dioxide 24 mmol/L (22-29); Chloride 107 mmol/L (96-108); Creatinine Clr Calc Pharmacy 103.9; Estimated Glomerular Filt Rate > 60; Ethanol < 10 mg/dL; Glucose Random 94 mg/dL (60-115); Potassium 4.3 mmol/L (3.3-5.1); Sodium 139 mmol/L (135-145); Total Protein 6.8 g/dL (6.5-8.0)
--- NOTE | 2024-08-30 07:23 | PC.NURSE ---
Pt. is requesting to leave. Here voluntarily. Julianne Tenorio MD notified
--- NOTE | 2024-08-30 08:07 | PC.NURSE ---
Belongings returned to pt. and pt. escorted out of Pod safely by district claims manager.
[2024-08-30 08:08] VITALS: BP 108/73; PULSE 84; RESP 18; TEMP 36.8; O2SAT 99
== END 2024-08-30 08:08 | disposition home or self-care (01) ==
PROVIDERS: Emergency Provider Internal Medicine
DX: F41.9 Anxiety disorder, unspecified (principal); F12.90 Cannabis use, unspecified, uncomplicated
CPT/HCPCS: 36415; 80053; 80307; 81003; 81025; 85025; 99284

== ENCOUNTER 2024-10-12 20:28 | Emergency (ER) | payer SELFPAY ==
[2024-10-12 20:45] VITALS: BP 130/97; PULSE 128; RESP 26; O2SAT 100; BMI 18.6
[2024-10-12 21:03] LABS: MANUAL DIFF FLAG NO
[2024-10-12 21:04] LABS: Basophils Percent Auto 0.4 % (0-2); Eosinophils Percent Auto 0.3 % (0-4); Hematocrit 36.1 % (37.0-47.0); Imm Gran Abs Auto 0.03 X10*3/uL (0.00-0.03); Imm Gran Pct Auto 0.3 % (0.0-0.4); Lymphocytes Absolute Auto 1.7 X10*3/uL (1.2-4.9); Lymphocytes Percent Auto 18.7 % (20-40); Mean Corpuscular HGB Conc 33.2 g/dl (31.0-35.0); Mean Corpuscular Hemoglobin 30.3 pg (27.0-33.0); Mean Corpuscular Volume 91.2 fL (80.0-98.0); Mean Platelet Volume 10.5 fL (9.4-12.3); Monocytes Absolute Auto 0.5 X10*3/uL (0.1-1.2); Monocytes Percent Auto 5.8 % (2-11); Neutrophils Absolute Auto 6.8 x10*3/uL (2.0-8.3); Neutrophils Percent Auto 74.5 % (45-73); Platelet Count 234 X10*3/uL (160-400); Red Blood Count 3.96 X10*6/uL (4.20-5.50); Red Cell Distribution Width 13.6 % (11.0-16.0); White Blood Count 9.2 X10*3/uL (4.8-10.8)
[2024-10-12 21:26] LABS: Alanine Aminotransferase 15 U/L (0-31); Alkaline Phosphatase 51 U/L (39-117); Anion Gap 18 (12-20); Aspartate Amino Transferase 26 U/L (5-31); Bilirubin Total 0.4 mg/dL (0.0-1.0); Blood Urea Nitrogen 14 mg/dL (9-16); Carbon Dioxide 18 mmol/L (22-29); Chloride 110 mmol/L (96-108); Creatinine Clr Calc Pharmacy 94.5; Estimated Glomerular Filt Rate > 60; Glucose Random 85 mg/dL (60-115); Potassium 3.5 mmol/L (3.3-5.1); Sodium 142 mmol/L (135-145); Total Protein 8.6 g/dL (6.5-8.0)
[2024-10-12 21:31] LABS: HCG Quantitative < 2 mIU/mL
[2024-10-12] MEDS: LORazepam 1 MG TABLET 2 MG PO (21:41)
--- NOTE | 2024-10-12 21:50 | ECG_ITS ---
Test Reason : pain Blood Pressure : */* mmHG Vent. Rate : 91 BPM Atrial Rate : 91 BPM P-R Int : 142 ms QRS Dur : 80 ms QT Int : 368 ms P-R-T Axes : 71 76 54 degrees QTcB Int : 452 ms Normal sinus rhythm Normal ECG When compared with ECG of 24-May-2024 13:44, No significant change was found Referred By: Basilio Triana Electronically Signed By: DARLEEN CISNEROS MD
--- NOTE | 2024-10-12 22:42 | ED_ITS ---
HPI - General Adult General Chief complaint: Anxiety Stated complaint: ANXIETY ATTACK Time Seen by Provider: 10/12/24 21:19 Source: patient, RN notes reviewed and old records reviewed Mode of arrival: EMS Limitations: no limitations History of Present Illness ED Provider: Kamilah NOYOLA narrative: 29-year-old female with past medical history significant for pain disorder presents for evaluation of anxiety. Patient reports that she was at a ?[place] [place]. She states that she started to feel anxious because ?there were a lot of people there. ? Patient states that she started to feel very anxious and scared. She also states that she usually self medicates her anxiety with marijuana but was unable to get flu dispensary. She used marijuana off of the street given to her by a friend She was unsure if this contributed to her exacerbated symptoms today. She complained of chest tightness, heart racing. She states that this is consistent with her previous panic attacks She reports that she no longer takes an antidepressant because ?I started to feel suicidal on the last 1. ? She does take trazodone for anxiety but does not like that it makes her sleepy Related Data Home Medications ?Medication ?Instructions ?Recorded ?Confirmed No Known Home Meds 08/29/24 08/29/24 Allergies Allergy/AdvReac Type Severity Reaction Status Date / Time CHICKEN NUGGETS/PATTIES Allergy Mild HIVES Uncoded 10/12/24 20:47 CHEESE CAKE Allergy Unknown HIVES Uncoded 10/12/24 20:47 Review of Systems 2 Constitutional: Constitutional: Denies body ache(s), Denies chills and Denies fever(s) Eyes: Eyes: Denies blurry vision ENT: Denies vertigo Cardiovascular: Cardiovascular: Reports chest pain and Reports palpitations Respiratory: Respiratory: Denies cough Gastrointestinal: Gastrointestinal: Denies abdominal pain and Reports nausea Musculoskeletal: Musculoskeletal: Denies back pain Integumentary/Breasts: Skin/Breast: Denies rash Neurologic: Denies vertigo Endocrine: Endocrine: Reports palpitations PMFSH Past Medical History Medical History GERD (gastroesophageal reflux disease) Nausea & vomiting Cyclical vomiting Gastritis Anxiety Surgical History No pertinent past surgical history Family History Family History Father Medical history unknown Mother Medical history unknown Social History Social History (Updated 04/01/24 @ 09:50 by Breana Hernández MD) Housing: Apartment Alcohol intake: current Alcohol intake frequency: a few times a month Alcohol type: hard liquor Patient Tobacco Use Status: Never used Tobacco e-Cigarette/Vaping Use: Never Used Second Hand Smoke Exposure: Yes Substance Use Type: Marijuana Advance Directives: No Advance Directives Information Provided: No Do you have a plan to hurt others: No Plan service: No Current occupational status: employed Cognitive needs: No Hearing needs: No Vision needs: No Physical Exam ED Vital Signs: Vital Signs - 24 hr 10/12/24 20:45 Pulse Rate 128 H Respiratory Rate 26 H Blood Pressure 130/97 H Pulse Oximetry 100 Oxygen Delivery Method Room Air BMI result Body Mass Index 18.6 Const General: healthy appearing, no acute distress, alert and awake Nutritional Appearance: well nourished Orientation/consciousness: patient oriented x3 HENMT Head: Yes normocephalic and Yes atraumatic Eyes Eyelids: Yes eyelids normal Conjunctivae: conjunctivae normal Sclerae: sclerae normal Corneas: corneas normal Pupils: Equal, round and reactive pupils present EOM: EOMs intact bilaterally Neck Neck: Yes full ROM Resp Effort & Inspection: normal respiratory effort, able to speak in complete sentences and not labored Cardio Rate: tachycardic Rhythm: regular rhythm Skin General skin exam: elasticity normal Neuro General: patient oriented x3 Cranial nerves: Yes Equal, round and reactive pupils present and Yes Bilaterally intact EOM present Cognition (Neuro): normal cognition Extrem Other: Moving all extremities well without any obvious deformities Psych Affect: Anxious affect present Medications Administered Discontinued Medications Generic Name Dose Route Start Last Admin Trade Name Freq PRN Reason Stop Dose Admin Lorazepam 2 mg 10/12/24 21:19 10/12/24 21:41 Lorazepam 1 Mg Tablet PO 10/12/24 21:20 2 mg ONCE ONE Administration Medical Decision Making Medical Decision Making [facility] Narrative: 29-year-old female with past medical history as above presents for evaluation of ?anxiety. Her symptoms include chest pain, tightness, heart racing and ?feeling scared. ? I reviewed her medical history and she does have several previous visits for anxiety related complaints. She seems to do well with lorazepam in the past. I ordered a dose of lorazepam 2 mg orally. I did order an EKG given her chest pain which showed normal sinus rhythm with a rate of 91 beats minute. No ischemic changes. Differential Diagnosis Differential Diagnoses: The differential diagnosis associated with the presentation includes Anxiety Panic disorder ACS less likely Arrhythmia Lab Data MDM Lab Attestation statement: I reviewed the patient's lab results. No leukocytosis or significant anemia. Normal platelet count. The patient's CO2 level is 18 which is low in his likely related to tachypnea due to her hyperventilating. No other significant electrolyte abnormalities 10/12/24 20:54 10/12/24 20:54 Labs: Lab Results 10/12/24 Range/Units 20:54 WBC 9.2 (4.8-10.8) X10*3/uL RBC 3.96 L (4.20-5.50) X10*6/uL Hgb 12.0 (12.0-16.0) g/dl Hct 36.1 L (37.0-47.0) % MCV 91.2 (80.0-98.0) fL MCH 30.3 (27.0-33.0) pg MCHC 33.2 (31.0-35.0) g/dl RDW 13.6 (11.0-16.0) % Plt Count 234 (160-400) X10*3/uL MPV 10.5 (9.4-12.3) fL Immature Gran % (Auto) 0.3 (0.0-0.4) % Neut % (Auto) 74.5 H (45-73) % Lymph % (Auto) 18.7 L (20-40) % [place] % (Auto) 5.8 (2-11) % Eos % (Auto) 0.3 (0-4) % Baso % (Auto) 0.4 (0-2) % Lymph # (Auto) 1.7 (1.2-4.9) X10*3/uL [place] # (Auto) 0.5 (0.1-1.2) X10*3/uL Eos # (Auto) 0.0 (0.0-0.4) X10*3/uL Baso # (Auto) 0.0 (0.0-0.2) X10*3/uL Abs Immat Gran (auto) 0.03 (0.00-0.03) X10*3/uL Absolute Neuts (auto) 6.8 (2.0-8.3) x10*3/uL Absolute Nucleated RBC 0.000 (0.0-0.012) X10*3/uL Nucleated RBC % (auto) 0.0 (0.0-0.2) /100WBC Sodium 142 (135-145) mmol/L Potassium 3.5 (3.3-5.1) mmol/L Chloride 110 H (96-108) mmol/L Carbon Dioxide 18 L (22-29) mmol/L Anion Gap 18 (12-20) BUN 14 (9-16) mg/dL Creatinine 0.71 (0.5-1.4) mg/dL Estim Creat Clear Calc 94.5 Estimated GFR > 60 Random Glucose 85 (60-115) mg/dL Calcium 10.0 D (8.4-10.2) mg/dL Total Bilirubin 0.4 (0.0-1.0) mg/dL AST 26 (5-31) U/L ALT 15 (0-31) U/L Alkaline Phosphatase 51 (39-117) U/L Total Protein 8.6 H (6.5-8.0) g/dL Albumin 5.0 (3.5-5.0) g/dL Beta HCG, Quant < 2 mIU/mL Independent Interpretation I performed an independent interpretation of an: EKG (Normal sinus rhythm with a rate of [address] segment changes) Discharge Plan Discharge Clinical Impression: Anxiety Patient Disposition: Home, Self-Care Instructions: Anxiety (ED) Additional Instructions: Your workup in the ER today was reassuring. This includes your blood work as well as her EKG. It is likely that your symptoms are related to a panic attack. You were given a medication called lorazepam. This is a good treatment for severe anxiety attacks but is not a good long-term management for anxiety Follow-up with your primary doctor, return for new or worsening symptoms Prescriptions: No Action No Known Home Meds Print Language: Occitan
[2024-10-13 00:03] VITALS: BP 130/97; PULSE 128; RESP 26; TEMP -17.7; TEMP 0; O2SAT 100
== END 2024-10-12 23:50 | disposition home or self-care (01) ==
PROVIDERS: Emergency Provider Emergency Medicine Emergency Medical Services; PCP Internal Medicine
DX: F41.9 Anxiety disorder, unspecified (principal); R07.9 Chest pain, unspecified; F12.90 Cannabis use, unspecified, uncomplicated
CPT/HCPCS: 36415; 80053; 84702; 85025; 93005; 99283

== ENCOUNTER → 2024-10-12 21:50 | Outpatient (BNV) | payer SELFPAY | PROVIDERS: Emergency Provider Emergency Medicine Emergency Medical Services; PCP Internal Medicine; Visit Provider Internal Medicine Cardiovascular Disease | DX: R52 Pain, unspecified (principal) | CPT/HCPCS: 93010 ==

== ENCOUNTER 2025-01-11 09:39 | Emergency (ER) | payer MEDICAID, SELFPAY ==
[2025-01-11 09:48] VITALS: BP 124/84; BP 137/91; PULSE 110; PULSE 123; RESP 24; TEMP 36.8; O2SAT 97; O2SAT 98; BMI 19.0
--- NOTE | 2025-01-11 09:49 | ED.PSYCH ---
HPI - Psych General Chief Complaint: Anxiety Stated Complaint: ANXIETY Time Seen by Provider: 01/11/25 09:43 Source: patient, EMS, RN notes reviewed and old records reviewed Mode of arrival: EMS Limitations: altered mental status History of Present Illness ED Provider: Sariah NOYOLA Narrative: Patient is a 29-year-old female with history of anxiety, panic attacks, GERD, cyclical vomiting presenting to the emergency department with acute anxiety. Patient extremely anxious on arrival, hyperventilating, reporting dizziness. MD complaint: anxiety History of same: Yes Related Data Home Medications ?Medication ?Instructions ?Recorded ?Confirmed No Known Home Meds 08/29/24 08/29/24 Allergies Allergy/AdvReac Type Severity Reaction Status Date / Time CHICKEN NUGGETS/PATTIES Allergy Mild HIVES Uncoded 01/11/25 09:52 CHEESE CAKE Allergy Unknown HIVES Uncoded 01/11/25 09:52 Review of Systems Review of Systems: As per HPI Yes all other systems are reviewed and are negative Constitutional: Constitutional: Reports as per HPI PMFSH Past Medical History Medical History GERD (gastroesophageal reflux disease) Nausea & vomiting Cyclical vomiting Gastritis Anxiety Surgical History No pertinent past surgical history Family History Family History Father Medical history unknown Mother Medical history unknown Social History Social History (Updated 04/01/24 @ 09:50 by Breana Hernández MD) Housing: Apartment Alcohol intake: current Alcohol intake frequency: a few times a month Alcohol type: hard liquor Patient Tobacco Use Status: Never used Tobacco e-Cigarette/Vaping Use: Never Used Second Hand Smoke Exposure: Yes Substance Use Type: Marijuana Advance Directives: No Advance Directives Information Provided: No service: No Current occupational status: employed Cognitive needs: No Hearing needs: No Vision needs: No Physical Exam Vital Signs: Vital Signs: Last Vital Signs Temp 98.2 F 01/11/25 09:48 Pulse 123 H 01/11/25 09:48 Resp 24 H 01/11/25 09:48 BP 124/84 01/11/25 09:48 Pulse Ox 98 01/11/25 09:48 O2 Del Method Room Air 01/11/25 09:48 BMI result Body Mass Index 19.0 Vital signs have been reviewed and appear to be correct. Blood pressure normal. Heart rate tachycardic. Respiratory rate tachypneic, closer to 30 respirations per minute. Temperature normal. Oxygen saturation normal. Const: General: alert, awake and anxious (restless) Nutritional Appearance: average body habitus Orientation/consciousness: patient oriented x3 Limitations: altered mental status HEENT: Head: Yes normocephalic and Yes atraumatic Ears: external ears normal General nose exam: Normal external nose present Face and sinus: Yes face symmetric Mouth: oropharynx normal and moist mucous membranes Throat: Yes uvula midline Eyes: Pupils: Equal, round and reactive pupils present Neck: Neck: Yes normal visual inspection and Yes supple Resp: Effort & Inspection: normal respiratory effort and able to speak in complete sentences Auscultation: clear to auscultation bilaterally Cardio: Rate: regular rate Rhythm: regular rhythm Heart sounds: S1 normal heart sound present and S2 normal heart sound present GI: Palpation (GI): Soft to palpation and nontender Auscultation: normoactive bowel sounds : General: Yes no CVA tenderness Back/Spine/Pelvis: Back: no CVA tenderness Skin: General skin exam: elasticity normal and turgor normal Neuro: General: patient oriented x3 Cranial nerves: Yes Equal, round and reactive pupils present Cognition (Neuro): normal cognition Extrem: General: Yes full ROM, Yes no pedal edema and Yes no calf tenderness Psych: Mental Status: mental status grossly normal Affect: normal affect Thought process: Normal thought process present Thought content: suicidality, no homicidality and no hallucinations Course Reevaluation(s) Reevaluation #1: RN reporting patient experiencing acute anxiety again, pacing in room, tremulous, requesting her usual trazodone dose of 50mg. Trazodone ordered. Time: 12:02 Reevaluation #2: Patient reporting improved symptoms, requesting discharge. I am comfortable with this, patient advised she can return at any time if symptoms worsen. Time: 12:22 Medications Administered Discontinued Medications Generic Name Dose Route Start Last Admin Trade Name Freq PRN Reason Stop Dose Admin Diazepam 5 mg 01/11/25 09:59 01/11/25 10:18 Diazepam 10 Mg/2 Ml Cartridge IVPUSH 01/11/25 10:00 5 mg STAT STA Administration Haloperidol Lactate 2.5 mg 01/11/25 10:32 01/11/25 10:46 Haloperidol Lactate 5 Mg/Ml Vial IVPUSH 01/11/25 10:33 2.5 mg ONCE ONE Administration Trazodone HCl 50 mg 01/11/25 12:02 01/11/25 12:06 Trazodone Hcl 50 Mg Tablet PO 01/11/25 12:03 50 mg ONCE ONE Administration Medical Decision Making Medical Decision Making [facility] Narrative: Patient is a 29-year-old female with history of anxiety, panic attacks, GERD, cyclical vomiting presenting to the emergency department with acute anxiety. On exam patient is awake, A+Ox3, VS WNL, afebrile, normal neurological exam without focal deficits, physical exam findings as above. Given reported symptoms and physical exam findings, initial differential includes but is not limited to acute anxiety, panic attack. Labs unremarkable. Patient medicated with valium due to ativan shortage, haldol. Patient able to engage in assessment and answer questions after being medicated. Reports improvement in symptoms, states symptoms feel typical of her regular panic attacks. Uses trazodone at home but did not take any today. Denies chest pain, abdominal pain, reports improvement in nausea, denies other physical complaints. Differential Diagnosis Differential Diagnoses: The differential diagnosis associated with the presentation includes As per [facility] Admission/Observation Consideration of admission/observation: Escalation of care including admission/observation considered Patient would have been admitted to the hospital had their work up had any findings where hospital admission was appropriate and their clinical presentation warranted hospital admission. Lab Data [facility] Lab Attestation statement: I reviewed the patient's lab results. As per [facility] 01/11/25 10:10 01/11/25 10:10 Labs: Lab Results 01/11/25 Range/Units 10:10 WBC 9.7 (4.8-10.8) X10*3/uL RBC 3.94 L (4.20-5.50) X10*6/uL Hgb 12.2 (12.0-16.0) g/dl Hct 35.4 L (37.0-47.0) % MCV 89.8 (80.0-98.0) fL MCH 31.0 (27.0-33.0) pg MCHC 34.5 (31.0-35.0) g/dl RDW 13.6 (11.0-16.0) % Plt Count 279 (160-400) X10*3/uL MPV 10.3 (9.4-12.3) fL Immature Gran % (Auto) 0.4 (0.0-0.4) % Neut % (Auto) 85.1 H (45-73) % Lymph % (Auto) 10.1 L (20-40) % [place] % (Auto) 4.0 (2-11) % Eos % (Auto) 0.0 (0-4) % Baso % (Auto) 0.4 (0-2) % Lymph # (Auto) 1.0 L (1.2-4.9) X10*3/uL [place] # (Auto) 0.4 (0.1-1.2) X10*3/uL Eos # (Auto) 0.0 (0.0-0.4) X10*3/uL Baso # (Auto) 0.0 (0.0-0.2) X10*3/uL Abs Immat Gran (auto) 0.04 H (0.00-0.03) X10*3/uL Absolute Neuts (auto) 8.2 (2.0-8.3) x10*3/uL Absolute Nucleated RBC 0.000 (0.0-0.012) X10*3/uL Nucleated RBC % (auto) 0.0 (0.0-0.2) /100WBC Sodium 141 (135-145) mmol/L Potassium 3.5 (3.3-5.1) mmol/L Chloride 111 H (96-108) mmol/L Carbon Dioxide 16 L (22-29) mmol/L Anion Gap 18 (12-20) BUN 11 (9-16) mg/dL Creatinine 0.69 (0.5-1.4) mg/dL Estim Creat Clear Calc 96.7 Estimated GFR > 60 Random Glucose 101 (60-115) mg/dL Calcium 9.5 (8.4-10.2) mg/dL Total Bilirubin 0.9 (0.0-1.0) mg/dL AST 23 (5-31) U/L ALT 20 (0-31) U/L Alkaline Phosphatase 49 (39-117) U/L Troponin I High Sens < 2.7 (<3.5-17.0) ng/L Total Protein 7.6 (6.5-8.0) g/dL Albumin 4.6 (3.5-5.0) g/dL Beta HCG, Quant < 2 mIU/mL Independent Interpretation I performed an independent interpretation of an: EKG (normal sinus rhythm, rate 90bpm, normal FL interval and QTc) External Record Review External record reviewed: Inpatient record, Office record and Outpatient record Discharge Plan Discharge Clinical Impression: Acute anxiety, Hyperventilation Patient Disposition: Home, Self-Care Instructions: Panic Disorder (ED), Anxiety (ED) Additional Instructions: You were seen in our Emergency Department today for treatment of a behavioral health issue. It is important after your visit that you follow up with either your behavioral health provider or a primary care doctor within 7 days. Take your regular medications as prescribed.? If you have trouble finding a therapist you can reach out to [place] [phone] The National Suicide and Crisis Lifeline can be reached 7 days a week 24 hours a day.? Call 988 to speak with someone.? Return for any worsening symptoms or concerns such as thoughts of self harm or harm to others. Please call 911 if you feel your mental health is worsening.? Prescriptions: No Action No Known Home Meds Print Language: Sinhala
--- NOTE | 2025-01-11 10:04 | ECG_ITS ---
Test Reason : PALPITATION Blood Pressure : */* mmHG Vent. Rate : 90 BPM Atrial Rate : 90 BPM P-R Int : 136 ms QRS Dur : 80 ms QT Int : 354 ms P-R-T Axes : 79 78 63 degrees QTcB Int : 433 ms Normal sinus rhythm Normal ECG When compared with ECG of 12-Oct-2024 22:34, No significant change was found Referred By: Melly Rolle Electronically Signed By: YIFAN HUTCHINS
--- OUTSIDE RECORDS SUMMARY | 2025-01-11 10:15 | XMS_ITS | Encounter Summary ---
Author Organization [facility] Address [address] [place] [address] Phone Care Team Providers Care Meat Sales And Storage Manager Name Role Phone Inna Barroso MD Primary Care Provider [phone] Encounter Details Date Type Department Care Team (Late st Contact Info) Description 05/04/2017 Conversion Encounter [facility] [address] [place] [address] Social History Tobacco Use Types Packs/Day Years Used Date Smoking Tobacco: Never Assessed Comments Unknown Sex and Gender Information Value Date Recorded Sex Assigned at Not on file Legal Sex Female 4:11 PM EDT Gender Identity Not on file Sexual Orientation Not on file documented as of this encounter Plan of Treatment Not on file documented as of this encounter Visit Diagnoses Not on filedocumented in this encounter Care Teams Meat Sales And Storage Manager Relationship Specialty Start Date End Date Inna Barroso MD [address] [place] [address] PCP - General 04/28/17 12/20/22 documented as of this encounter
--- OUTSIDE RECORDS SUMMARY | 2025-01-11 10:15 | XMS_ITS | Clinical Summary ---
Author Organization [facility] Address [address] [place] [phone] Phone Care Team Providers Care Stage Set Up Worker Name Role Phone Martín You MD Primary Care Provider [phone] Surgical History Surgery Date Site/Laterality Comments MYOMECTOMY 2018 PROCEDURE: ME LAPS MYOMECTOMY EXC 1-4 MYOMAS 250 GM/<; COMMENT: needed a blood transfusion Medical History Medical History Date Comments PID (acute pelvic inflammatory disease) 02/2019 DX:PID (acute pelvic inflammatory disease); COMMENT: chlamydia Family History Relation Name Status Comments Father Other Mother Other Social History Tobacco Use Types Packs/Day Years Used Date Smoking Tobacco: Never Smokeless Tobacco: Never Alcohol Use Standard Drinks/Week Comments No 0 (1 standard drink = 0.6 oz pur e alcohol) Comments Unknown Sex and Gender Information Value Date Recorded Sex Assigned at Not on file Legal Sex Female 6:15 PM EST Gender Identity Not on file Sexual Orientation Not on file Obstetrics History Last Filed Vital Signs Vital Sign Reading Time Taken Comments Blood Pressure 108/70 11/15/2023 9:23 AM EST Pulse 85 11/15/2023 9:23 AM EST Temperature - - Respiratory Rate - - Oxygen Saturation - - Inhaled Oxygen Concentration - - Weight 51.3 kg (113 lb) 11/15/2023 9:23 AM EST Height 165.1 cm (5' 5 ) 04/06/2023 8:36 AM EDT Body Mass Index 18.8 04/06/2023 8:36 AM EDT Plan of Treatment Upcoming Encounters Date Type Department Care Team ([facility] st Contact Info) Description 01/13/2025 1:20 PM EDT Office Visit [facility] [place] [address] [place] [phone] Angelica Coleman PA [address] [facility] [place] [address] Health Maintenance Due Date Last Done Comments COVID-19 Vaccine (#1) 1998 DTaP,Tdap,and Td Vaccines (1 - Tdap) 2012 Hepatitis B Vaccines (1 of 3 - 19+ 3-dose series) 2012 Depression Screening 08/27/2022 HIV Screening 08/27/2022 Hepatitis C Screening 08/27/2022 Social Influencers of Health Screening 08/27/2022 Influenza Vaccine (Season Ended) 2025 Cervical Cancer Screening: P ap Smear 11/15/2026 11/15/2023, 11/15/2023, 01/01/2021 HIB Vaccines Aged Out No longer eligi ble based on patient's age to complete this topic HPV Vaccines Aged Out No longer eligi ble based on patient's age to complete this topic Hepatitis A Vaccines Aged Out No long er eligible based on patient's age to complete this topic IPV Vaccines Aged Out No longer eligi ble based on patient's age to complete this topic MMR Vaccines Aged Out No longer eligi ble based on patient's age to complete this topic Meningococcal ACWY Vaccine Aged Out N o longer eligible based on patient's age to complete this topic Meningococcal B Vaccine Aged Out No l onger eligible based on patient's age to complete this topic Pneumococcal Vaccine: Pediatrics (0 to 5 Years) and At-Risk Patients (6 to 64 Years) Aged Out No longer eligible b ased on patient's age to complete this topic RSV Immunization Patients Under 20 months Aged Out No longer eligible b ased on patient's age to complete this topic Varicella Vaccines Aged Out No longer eligible based on patient's age to complete this topic Procedures Procedure Name Priority Date/Time Associated Diagnosis Comments PAP SMEAR Routine 11/15/2023 from Last 3 Months or Most Recently Relevant to Health Maintenance Results * Pap smear (11/15/2023) 11/15/2023 Narrative HISTORICAL TESTING LAB RESULTING AGENCY - 11/28/2023 4:36 PM EDT [id number] THINPREP PAP, IMAGED: NEGATIVE FOR SQUAMOUS INTRAEPITHELIAL LESION AND MALIGNANCY . DORIS CARCAMO(ASCP) (CASE ELECTRONICALLY SIGNED 11 28 2023) RESULT OF APTIMA HIGH RISK HPV ASSAY: HIGH RISK HPV: ??NEGATIVE (SEROTYPES 16,18,31,33,35,39,45,51,52,56,58,59,66,68) COMPLETED ON 2023-11-17 ADEQUACY: SATISFACTORY ENDOCERVICAL/TRANSFORMATION ZONE COMPONENT ABSENT. SOURCE: THINPREP PAP HPV ANY DX: ??REFLEX 16 AND 18, CERVICAL, IMAGED CLINICAL INFORMATION: HPV ANY DIAGNOSIS. HORMONES, PAP HX NEGATIVE, 2020, [[id number]] Leah Desir [facility] LAB CYTOLOGY ORDERABLES Final R esult HISTORICAL TESTING LAB RESULTING AGENCY from Last 3 Months or Most Recently Relevant to Health Maintenance Insurance [facility] [employer] Care Teams Stage Set Up Worker Relationship Specialty Start Date End Date Martín You MD [address] [place] [address] Dr Mor[address] [facility] [place] [address] PCP - General Internal Medicine 06/18/19
--- OUTSIDE RECORDS SUMMARY | 2025-01-11 10:15 | XMS_ITS | Clinical Summary ---
Author Organization [facility] Address [address] [place] [phone] Phone Care Team Providers Care Supervisor Orchard Name Role Phone Unavailable Primary Care Provider Unavailabl e Immunizations Immunization Administration Dates Next Due DTP 03/18/1995,1994,05/19/1994 ,01/16/1994 DTaP 5 01/27/1999 Hep B, ped/adol 05/19/1994,1993,1993 Hib (PRP-T) 03/18/1995,1994,05/19/1994 ,01/16/1994 MMR 11/16/1997,11/16/1994 OPV 01/27/1999,1994,05/19/1994 ,01/16/1994 Social History Tobacco Use Types Packs/Day Years Used Date Smoking Tobacco: Never Assessed Comments Unknown Sex and Gender Information Value Date Recorded Sex Assigned at Not on file Legal Sex Female 4:11 PM EDT Gender Identity Not on file Sexual Orientation Not on file Plan of Treatment Health Maintenance Due Date Last Done Comments DTaP,Tdap,and Td Vaccines (6 - Tdap) 2004 01/27/1999, 03/18/1995, 1994, Additional history exists Varicella Vaccines (1 of 2 - 13+ 2-dose series) 2006 Influenza Vaccines (#1) 2024 COVID-19 Vaccine ( season) 2024 Hepatitis B Vaccines Completed 05/19/1994, 1993, 1993 HIB Vaccines Completed 03/18/1995, 09/1994, 05/19/1994, Additional history exists MMR Vaccines Completed 11/16/1997, 11/16/1994 IPV Vaccines Completed 01/27/1999, 09/1994, 05/19/1994, Additional history exists HPV Vaccines Aged Out No longer eligi ble based on patient's age to complete this topic Hepatitis A Vaccines Aged Out No long er eligible based on patient's age to complete this topic Men B Vaccine Aged Out No longer elig ible based on patient's age to complete this topic Meningococcal Vaccine Aged Out No clarisa david eligible based on patient's age to complete this topic Pneumococcal Vaccine Aged Out No long er eligible based on patient's age to complete this topic
[2025-01-11] MEDS: diazePAM 10 MG/2 ML CARTRIDGE 5 MG IVPUSH (10:18)
[2025-01-11 10:24] LABS: MANUAL DIFF FLAG NO
--- NOTE | 2025-01-11 10:25 | PC.NURSE ---
Patient restless with full body tremors and rapid breathing. patient getting up and out of bed, this RN and elevator service technician at bedside assisting patient. patient had 2 syncopal episodes followed by vomiting a small amount of yellow bile. patient was in a standing position and assisted by this RN and ED tecg, pt did not fall. pt continues to with rapid breathing and c/o dizziness and chest pain. FEATHER SHAPER aware. IV established and labs obtained. medicated per order. ST via tele
[2025-01-11 10:30] LABS: Basophils Percent Auto 0.4 % (0-2); Hematocrit 35.4 % (37.0-47.0); Hemoglobin 12.2 g/dl (12.0-16.0); Imm Gran Abs Auto 0.04 X10*3/uL (0.00-0.03); Imm Gran Pct Auto 0.4 % (0.0-0.4); Lymphocytes Percent Auto 10.1 % (20-40); Mean Corpuscular HGB Conc 34.5 g/dl (31.0-35.0); Mean Corpuscular Volume 89.8 fL (80.0-98.0); Mean Platelet Volume 10.3 fL (9.4-12.3); Monocytes Absolute Auto 0.4 X10*3/uL (0.1-1.2); Neutrophils Absolute Auto 8.2 x10*3/uL (2.0-8.3); Neutrophils Percent Auto 85.1 % (45-73); Platelet Count 279 X10*3/uL (160-400); Red Blood Count 3.94 X10*6/uL (4.20-5.50); Red Cell Distribution Width 13.6 % (11.0-16.0); White Blood Count 9.7 X10*3/uL (4.8-10.8)
[2025-01-11 10:45] LABS: Alanine Aminotransferase 20 U/L (0-31); Albumin Level 4.6 g/dL (3.5-5.0); Alkaline Phosphatase 49 U/L (39-117); Anion Gap 18 (12-20); Aspartate Amino Transferase 23 U/L (5-31); Bilirubin Total 0.9 mg/dL (0.0-1.0); Blood Urea Nitrogen 11 mg/dL (9-16); Calcium 9.5 mg/dL (8.4-10.2); Carbon Dioxide 16 mmol/L (22-29); Chloride 111 mmol/L (96-108); Creatinine Clr Calc Pharmacy 96.7; Estimated Glomerular Filt Rate > 60; Glucose Random 101 mg/dL (60-115); Potassium 3.5 mmol/L (3.3-5.1); Sodium 141 mmol/L (135-145); Total Protein 7.6 g/dL (6.5-8.0)
[2025-01-11] MEDS: Haloperidol Lactate 5 MG/ML VIAL 2.5 MG IVPUSH (10:46)
[2025-01-11 10:52] LABS: HCG Quantitative < 2 mIU/mL; Troponin-I High Sensitivity < 2.7 ng/L (<3.5-17.0)
--- NOTE | 2025-01-11 11:11 | PC.NURSE ---
Patient reports feeling better post medications. NSR via tele, continues to be tachypneic also rate improved, RR now 28. denies SI/HI. reports hx of anxiety/panic attacks, states she takes trazodone at home.
[2025-01-11] MEDS: traZODone HCL 50 MG TABLET PO (12:06)
[2025-01-11 12:31] VITALS: BP 105/67; PULSE 99; RESP 16; TEMP 36.7; O2SAT 99
== END 2025-01-11 12:32 | disposition home or self-care (01) ==
PROVIDERS: Registered Nurse Emergency; Emergency Provider Emergency Medicine; PCP Internal Medicine
DX: F41.1 Generalized anxiety disorder (principal); R06.4 Hyperventilation; R00.2 Palpitations; Z79.899 Other long term (current) drug therapy
CPT/HCPCS: 36415; 80053; 84484; 84702; 85025; 93005; 96374; 96375; 99283; 99284; J1630; J3360

== ENCOUNTER → 2025-01-11 10:04 | Outpatient (BNV) | payer MEDICAID, SELFPAY | PROVIDERS: Emergency Provider Emergency Medicine; PCP Internal Medicine; Visit Provider Internal Medicine | DX: R00.2 Palpitations (principal) | CPT/HCPCS: 93010 ==

== ENCOUNTER 2025-02-23 00:02 | Emergency (ER) | payer OTHER, SELFPAY ==
--- NOTE | 2025-02-23 00:06 | ED_ITS ---
HPI - General Adult General Chief complaint: General Medical Stated complaint: SEIZURE Time Seen by Provider: 02/23/25 00:06 History of Present Illness ED Provider: Olivia NOYOLA narrative: The patient is a 29-year-old female. She says that earlier today she had gone out with her boyfriend to an arcade in [place]. She said she was having a good time but at some point started to feel like she was anxious and she asked her boyfriend to take her home. She went home where she started to have what she believes were seizures and then panic attacks. An ambulance was called and she was brought to the hospital. The patient says she has had several previous episodes of a similar nature in the past. She has been referred to neurology but has not seen a neurologist. She has been prescribed gabapentin by the ER doctors she has seen mostly at [facility]. She has not yet seen a neurologist. Related Data Home Medications ?Medication ?Instructions ?Recorded ?Confirmed No Known Home Meds 08/29/24 08/29/24 Allergies Allergy/AdvReac Type Severity Reaction Status Date / Time CHICKEN NUGGETS/PATTIES Allergy Mild HIVES Uncoded 02/23/25 00:11 CHEESE CAKE Allergy Unknown HIVES Uncoded 02/23/25 00:11 Review of Systems 2 Review of Systems: Yes all other systems are reviewed and are negative [facility] Past Medical History Medical History GERD (gastroesophageal reflux disease) Nausea & vomiting Cyclical vomiting Gastritis Anxiety Surgical History No pertinent past surgical history Family History Family History Father Medical history unknown Mother Medical history unknown Social History Social History (Updated 04/01/24 @ 09:50 by Breana Hernández MD) Housing: Apartment Unable to assess alcohol history related to: Unknown Alcohol intake: current Alcohol intake frequency: a few times a month Alcohol type: hard liquor Patient Tobacco Use Status: Never used Tobacco Smoked in Last 30 Days: No e-Cigarette/Vaping Use: Never Used Second Hand Smoke Exposure: Yes Use of substances other than those prescribed or required for medical reasons: No Substance Use Type: Marijuana Advance Directives: No Advance Directives Information Provided: Yes Patient : No service: No Current occupational status: employed Cognitive needs: No Hearing needs: No Vision needs: No Physical Exam ED Vital Signs: Vital Signs - 24 hr 02/23/25 00:09 02/23/25 00:33 02/23/25 02:31 Temperature 97.9 F Pulse Rate 117 H 100 100 Respiratory Rate 18 18 18 Blood Pressure 127/78 103/62 103/62 Pulse Oximetry 97 98 98 Oxygen Delivery Method Room Air Room Air Room Air BMI result Body Mass Index 21.1 Const Other: The patient arrived with the paramedics awake but seemingly in a panic moving restlessly and anxiously on the stretcher. HENMT Other: Face is symmetrical, mucous membranes moist, no intraoral injury, no tongue biting. Eyes General: appearance normal, both eyes and all related structures Alignment and Position: alignment normal Eyelids: Yes eyelids normal Conjunctivae: conjunctivae normal Pupils: Equal, round and reactive pupils present EOM: EOMs intact bilaterally Neck Neck: Yes normal visual inspection, Yes full ROM, Yes no lymphadenopathy and Yes no meningeal signs Resp Effort & Inspection: normal respiratory effort Auscultation: clear to auscultation bilaterally Cardio Rate: regular rate Rhythm: regular rhythm Heart sounds: S1 normal heart sound present and S2 normal heart sound present GI Other: Abdomen is soft and nontender Skin Other: skin is intact General skin exam: no rashes or lesions noted Neuro Other: the patient initially seemed to be in an extremely anxious state, moving anxiously and restlessly and could not be calmed. Later when she was more calm she was awake, alert, oriented, appropriate. Her mental status was clear. Cranial nerves were intact. She moves her extremities normally and appropriately. Her neck was supple. General: no meningeal signs Cranial nerves: Yes Equal, round and reactive pupils present Extrem Other: No injuries to the extremities. No peripheral edema. Psych Other: The patient is well-groomed. She arrived extremely anxious and restless and seemingly in a panic attack. After receiving sedation she was calm. She denied suicidality or homicidality. Medications Administered Discontinued Medications Generic Name Dose Route Start Last Admin Trade Name Freq PRN Reason Stop Dose Admin Diazepam 10 mg 02/23/25 00:06 02/23/25 00:14 Diazepam 10 Mg/2 Ml Cartridge IVPUSH 02/23/25 00:07 10 mg STAT STA Administration Diazepam 10 mg 02/23/25 01:23 02/23/25 01:36 Diazepam 10 Mg/2 Ml Cartridge IVPUSH 02/23/25 01:24 10 mg STAT STA Administration Sodium Chloride 1,000 mls @ 999 mls/hr 02/23/25 00:30 02/23/25 01:40 Ns IV 02/23/25 01:30 Infused .Q1H1M CARMEN Infusion Potassium Chloride 40 meq 02/23/25 00:55 02/23/25 01:50 Potassium Chloride Er 20 Meq Tab.Er.Prt PO 02/23/25 00:56 Not Given ONCE ONE Medical Decision Making Medical Decision Making MDM Narrative: The patient is a 29-year-old female who presents acutely restless and anxious. This seems to be a panic episode. She responded well to IV diazepam. She says she has had multiple previous episodes of a similar nature in the past and has primarily been evaluated at [facility]. She says that she has been referred to a neurologist but has not yet been seen by a neurologist as an outpatient. She says she has been prescribed gabapentin and hydroxyzine. Clinically I thought the patient was probably having some kind of a panic episode. She was treated empirically with 10 mg of IV diazepam. She then was calm and seemed much better. I was surprised sometime later when she seemed to have a recurrence of her initial panic episode. Again during this episode she was awake and alert. I did not feel this was a seizure episode. She received a 2nd dose of 10 mg of IV diazepam and again was calm. At that point I felt she could be discharged to follow up with your regular doctor. test is negative, other testing is also unremarkable. Lab Data 02/23/25 00:17 02/23/25 00:17 Labs: Lab Results 02/23/25 02/23/25 Range/Units 00:17 00:23 WBC 9.8 (4.8-10.8) X10*3/uL RBC 3.67 L (4.20-5.50) X10*6/uL Hgb 11.3 L (12.0-16.0) g/dl Hct 34.0 L (37.0-47.0) % MCV 92.6 (80.0-98.0) fL MCH 30.8 (27.0-33.0) pg MCHC 33.2 (31.0-35.0) g/dl RDW 13.9 (11.0-16.0) % Plt Count 211 (160-400) X10*3/uL MPV 10.0 (9.4-12.3) fL Immature Gran % (Auto) 0.4 (0.0-0.4) % Neut % (Auto) 84.2 H (45-73) % Lymph % (Auto) 9.5 L (20-40) % [place] % (Auto) 5.1 (2-11) % Eos % (Auto) 0.4 (0-4) % Baso % (Auto) 0.4 (0-2) % Lymph # (Auto) 0.9 L (1.2-4.9) X10*3/uL [place] # (Auto) 0.5 (0.1-1.2) X10*3/uL Eos # (Auto) 0.0 (0.0-0.4) X10*3/uL Baso # (Auto) 0.0 (0.0-0.2) X10*3/uL Abs Immat Gran (auto) 0.04 H (0.00-0.03) X10*3/uL Absolute Neuts (auto) 8.3 (2.0-8.3) x10*3/uL Absolute Nucleated RBC 0.000 (0.0-0.012) X10*3/uL Nucleated RBC % (auto) 0.0 (0.0-0.2) /100WBC VBG pH 7.39 (7.32-7.43) VBG pCO2 22 mmHg VBG pO2 133 mmHg VBG HCO3 14 L (22-26) mmol/L VBG O2 Saturation 99.0 % VBG Base Excess -8.6 mmol/L Sodium 140 (135-145) mmol/L Potassium 3.1 L (3.3-5.1) mmol/L Chloride 109 H (96-108) mmol/L Carbon Dioxide 16 L (22-29) mmol/L Anion Gap 18 (12-20) BUN 12 (9-16) mg/dL Creatinine 0.72 (0.5-1.4) mg/dL Estim Creat Clear Calc 101.8 Estimated GFR > 60 Random Glucose 133 H (60-115) mg/dL Calcium 9.3 (8.4-10.2) mg/dL Magnesium 1.9 (1.6-2.6) mg/dL Total Bilirubin 0.7 (0.0-1.0) mg/dL Direct Bilirubin 0.2 (0.0-0.5) mg/dL AST 23 (5-31) U/L ALT 16 (0-31) U/L Alkaline Phosphatase 46 (39-117) U/L Total Protein 7.2 (6.5-8.0) g/dL Albumin 4.6 (3.5-5.0) g/dL Beta HCG, Quant < 2 mIU/mL Salicylates < 5.0 L (15-30) mg/dL Acetaminophen < 3 (<30) mcg/mL Ethyl Alcohol < 10 mg/dL Discharge Plan Discharge Clinical Impression: Panic attack Patient Disposition: Home, Self-Care Additional Instructions: Please rest and take it easy tonight. Continue your regular medications. Please follow up soon with your regular doctor. Please follow through on your referral to Neurology. Return to the emergency room if significantly worse. Prescriptions: No Action No Known Home Meds Referrals: Breana Jama MD [Primary Care Provider] - (Panic episodes) Interventions: ED Discharge Assessment Last Done: 02/23/25 02:31 Discharge Date/Time: 02/23/25 02:44 Print Language: Macedonian
[2025-02-23 00:09] VITALS: BP 116/70; BP 127/78; PULSE 111; PULSE 117; RESP 18; O2SAT 97; O2SAT 98; BMI 21.1
[2025-02-23] MEDS: diazePAM 10 MG/2 ML CARTRIDGE IVPUSH ×2 (00:14→01:36)
[2025-02-23 00:22] LABS: MANUAL DIFF FLAG NO
[2025-02-23 00:24] LABS: Basophils Percent Auto 0.4 % (0-2); Eosinophils Percent Auto 0.4 % (0-4); Hemoglobin 11.3 g/dl (12.0-16.0); Imm Gran Abs Auto 0.04 X10*3/uL (0.00-0.03); Imm Gran Pct Auto 0.4 % (0.0-0.4); Lymphocytes Absolute Auto 0.9 X10*3/uL (1.2-4.9); Lymphocytes Percent Auto 9.5 % (20-40); Mean Corpuscular HGB Conc 33.2 g/dl (31.0-35.0); Mean Corpuscular Hemoglobin 30.8 pg (27.0-33.0); Mean Corpuscular Volume 92.6 fL (80.0-98.0); Monocytes Absolute Auto 0.5 X10*3/uL (0.1-1.2); Monocytes Percent Auto 5.1 % (2-11); Neutrophils Absolute Auto 8.3 x10*3/uL (2.0-8.3); Neutrophils Percent Auto 84.2 % (45-73); Platelet Count 211 X10*3/uL (160-400); Red Blood Count 3.67 X10*6/uL (4.20-5.50); Red Cell Distribution Width 13.9 % (11.0-16.0); White Blood Count 9.8 X10*3/uL (4.8-10.8)
[2025-02-23 00:27] LABS: VBG Base Excess -8.6 mmol/L; VBG HCO3 14 mmol/L (22-26); VBG pCO2 22 mmHg; VBG pH 7.39 (7.32-7.43); VBG pO2 133 mmHg
[2025-02-23 00:31] LABS: Venous Blood Gas Refer to POC result
[2025-02-23 00:33] VITALS: BP 103/62; PULSE 100; RESP 18; O2SAT 98
[2025-02-23] MEDS: 0.9 % Sodium Chloride 1,000 ML 999 ML IV (00:33)
[2025-02-23 00:39] LABS: Acetaminophen LAB < 3 mcg/mL (<30); Salicylate < 5.0 mg/dL (15-30)
[2025-02-23 00:45] LABS: Alanine Aminotransferase 16 U/L (0-31); Albumin Level 4.6 g/dL (3.5-5.0); Alkaline Phosphatase 46 U/L (39-117); Anion Gap 18 (12-20); Aspartate Amino Transferase 23 U/L (5-31); Bilirubin Direct 0.2 mg/dL (0.0-0.5); Bilirubin Total 0.7 mg/dL (0.0-1.0); Blood Urea Nitrogen 12 mg/dL (9-16); Calcium 9.3 mg/dL (8.4-10.2); Carbon Dioxide 16 mmol/L (22-29); Chloride 109 mmol/L (96-108); Creatinine Clr Calc Pharmacy 101.8; Estimated Glomerular Filt Rate > 60; Ethanol < 10 mg/dL; Glucose Random 133 mg/dL (60-115); HCG Quantitative < 2 mIU/mL; Magnesium 1.9 mg/dL (1.6-2.6); Potassium 3.1 mmol/L (3.3-5.1); Sodium 140 mmol/L (135-145); Total Protein 7.2 g/dL (6.5-8.0)
[2025-02-23 02:31] VITALS: BP 103/62; PULSE 100; RESP 18; TEMP 36.6; O2SAT 98
== END 2025-02-23 02:44 | disposition home or self-care (01) ==
PROVIDERS: Emergency Provider Emergency Medicine; PCP Internal Medicine
DX: F41.0 Panic disorder [episodic paroxysmal anxiety] (principal); F41.9 Anxiety disorder, unspecified
CPT/HCPCS: 36415; 80048; 80076; 80143; 80179; 80307; 82803; 83735; 84702; 85025; 96361; 96374; 96375; 99284; J3360

== ENCOUNTER 2025-02-28 22:15 | Emergency (ER) | payer OTHER, SELFPAY ==
[2025-02-28 22:29] VITALS: BP 113/77; BP 118/71; PULSE 100; PULSE 80; RESP 18; TEMP 36.6; O2SAT 100; O2SAT 99; BMI 21.2
[2025-02-28 22:38] VITALS: BP 113/77; PULSE 80; RESP 18; TEMP 36.6; O2SAT 100
[2025-02-28 23:34] VITALS: BP 108/70; PULSE 80; RESP 15; TEMP 36.8; O2SAT 98
--- NOTE | 2025-03-01 00:01 | ED_ITS ---
HPI - General Adult General Chief complaint: Seizure Stated complaint: seizures, postictal currently Time Seen by Provider: 02/28/25 22:37 History of Present Illness ED Provider: Jose Alfredo Roche MD HPI narrative: This is a 29-year-old female with anxiety disorder, insomnia on trazodone she describes to me some episodes of unusual shaking or possible syncope in the past that some physicians who saw this, here at [facility] thought were possible seizure or pseudo-seizure. She is never had EEG she is never lost consciousness or had any tongue biting incontinence injury car accident. No formal diagnosis of seizure. The way she describes the event tonight was that she was feeling well in her normal state of health, she had gotten over what proximally 48 hours ago was a brief subjective fever nausea vomiting and diarrhea episode. She ate breakfast this morning and was generally feeling well she went out to dinner with her partner when she began to feel slightly dizzy and generally fatigued as her partner to take her home. She said she went home went to bed and went to sleep. The next thing she remembered her sister was yelling in the room and called 911. The patient denies any injuries. Currently symptom-free __ Later in the ED course I spoke to the patient's sister at about 00:15 on the phone. She is a 1 who witnessed this event that was described similarly to multiple previous events that the boyfriend has witnessed with the patient. She essentially said that she when she went into her room the patient eyes were open she was lying in the bed and there was a phone next to her ear where she was has been on the phone with her mother. She said she had kind of a blank stare and was not speaking to her she felt that there was some occasional intermittent non organized shaking but not true tonic-clonic description. There was no incontinence tongue biting no facial twitching no slurred speech drooping or any other focal signs. She said when EMS arrived she had some activity, EMS told us this had the appearance of non epileptic convulsive or seizure activity. Related Data Home Medications ?Medication ?Instructions ?Recorded ?Confirmed No Known Home Meds 08/29/24 08/29/24 Allergies Allergy/AdvReac Type Severity Reaction Status Date / Time CHICKEN NUGGETS/PATTIES Allergy Mild HIVES Uncoded 02/28/25 22:36 CHEESE CAKE Allergy Unknown HIVES Uncoded 02/28/25 22:36 [facility] Past Medical History Medical History GERD (gastroesophageal reflux disease) Nausea & vomiting Cyclical vomiting Gastritis Anxiety Surgical History No pertinent past surgical history Family History Family History Father Medical history unknown Mother Medical history unknown Social History Social History (Updated 04/01/24 @ 09:50 by Breana Hernández MD) Housing: Apartment Unable to assess alcohol history related to: Unknown Alcohol intake: current Alcohol intake frequency: a few times a month Alcohol type: hard liquor Patient Tobacco Use Status: Never used Tobacco Smoked in Last 30 Days: No e-Cigarette/Vaping Use: Never Used Second Hand Smoke Exposure: Yes Use of substances other than those prescribed or required for medical reasons: Yes Substance Use Type: Marijuana Substance Use Frequency: Daily Advance Directives: No Advance Directives Information Provided: Yes Patient : No service: No Current occupational status: employed Cognitive needs: No Hearing needs: No Vision needs: No Physical Exam ED Vital Signs: Vital Signs - 24 hr 02/28/25 22:29 02/28/25 22:38 02/28/25 23:34 Temperature 98 F 98 F 98.2 F Pulse Rate 80 80 80 Respiratory Rate 18 18 15 Blood Pressure 113/77 113/77 108/70 Pulse Oximetry 100 100 98 Oxygen Delivery Method Room Air Room Air Room Air BMI result Body Mass Index 21.2 Const Other: GENERAL: Well appearing. No apparent distress. Alert. HEAD/NECK: Normal to inspection. Neck supple. No cervical lymphadenopathy. EYES: Normal to inspection. Sclera non-icteric. ENMT: External nose normal. RESPIRATORY: Respiratory effort normal. Lungs clear to auscultation bilaterally. CARDIOVASCULAR: Regular rate. Normal rhythm. No murmur. No rubs. GI: Soft, non-tender, non-distended. No rebound or guarding. No masses palpable. No hepatosplenomegaly. SKIN: No jaundice. NEUROLOGICAL: Alert. PSYCHIATRIC: Alert. Appearance appropriate for situation. Attitude cooperative. OTHER: Comprehensive Neuro exam: Face symmetric, tongue midline, strong symmetric eye closure, pupils symmetric and reactive to light, intact sensation to the face throughout, intact strong face deviation and shoulder shrug. Sensation intact to light touch throughout * 5 out of 5 strength in bilateral upper extremities, 5 and 5 strength in lower extremities Medications Administered Discontinued Medications Generic Name Dose Route Start Last Admin Trade Name Arnulfoq PRN Reason Stop Dose Admin Diazepam 2.5 mg 03/01/25 01:22 03/01/25 01:30 Diazepam 10 Mg/2 Ml Cartridge IVPUSH 03/01/25 01:23 2.5 mg STAT STA Administration Diphenhydramine HCl 12.5 mg 03/01/25 01:22 03/01/25 01:30 Diphenhydramine Hcl 50 Mg/Ml Vial IVPUSH 03/01/25 01:23 12.5 mg ONCE ONE Administration Hydroxyzine HCl 25 mg 03/01/25 00:58 03/01/25 01:04 Hydroxyzine Hcl 25 Mg Tablet PO 03/01/25 00:59 25 mg ONCE ONE Administration Medical Decision Making Medical Decision Making [facility] Narrative: This is a 29-year-old female with multiple prior episodes abnormal convulsive like activity witnessed by boyfriend today she had unusual episode as described above witnessed by sister. No tongue bite no incontinence. EMS reported nonepileptic type activity. On arrival the patient was calm comfortable had normal neurologic exam. No formal seizure diagnosis in the past. She does have anxiety insomnia acknowledges emotional component stress related component of the episodes. She and I had a lengthy discussion and she was set for discharge when she developed significant anxiety self described panic attack she was waving and shaking her hands and seems extremely anxious. We gave her hydroxyzine followed by Radha. Sister at the bedside throughout. No seizure activity noted. No self-injurious behavior. She did not describe or illicit any Lab Data 03/01/25 00:34 03/01/25 00:34 Labs: Lab Results 03/01/25 Range/Units 00:34 WBC 10.7 (4.8-10.8) X10*3/uL RBC 3.89 L (4.20-5.50) X10*6/uL Hgb 11.9 L (12.0-16.0) g/dl Hct 35.3 L (37.0-47.0) % MCV 90.7 (80.0-98.0) fL MCH 30.6 (27.0-33.0) pg MCHC 33.7 (31.0-35.0) g/dl RDW 14.0 (11.0-16.0) % Plt Count 262 (160-400) X10*3/uL MPV 10.0 (9.4-12.3) fL Immature Gran % (Auto) 0.4 (0.0-0.4) % Neut % (Auto) 82.6 H (45-73) % Lymph % (Auto) 12.3 L (20-40) % [place] % (Auto) 4.1 (2-11) % Eos % (Auto) 0.2 (0-4) % Baso % (Auto) 0.4 (0-2) % Lymph # (Auto) 1.3 (1.2-4.9) X10*3/uL [place] # (Auto) 0.4 (0.1-1.2) X10*3/uL Eos # (Auto) 0.0 (0.0-0.4) X10*3/uL Baso # (Auto) 0.0 (0.0-0.2) X10*3/uL Abs Immat Gran (auto) 0.04 H (0.00-0.03) X10*3/uL Absolute Neuts (auto) 8.9 H (2.0-8.3) x10*3/uL Absolute Nucleated RBC 0.000 (0.0-0.012) X10*3/uL Nucleated RBC % (auto) 0.0 (0.0-0.2) /100WBC Sodium 140 (135-145) mmol/L Potassium 3.6 (3.3-5.1) mmol/L Chloride 107 (96-108) mmol/L Carbon Dioxide 24 (22-29) mmol/L Anion Gap 13 (12-20) BUN 10 (9-16) mg/dL Creatinine 0.62 (0.5-1.4) mg/dL Estim Creat Clear Calc 118.2 Estimated GFR > 60 Random Glucose 108 (60-115) mg/dL Calcium 9.2 (8.4-10.2) mg/dL Beta HCG, Quant < 2 mIU/mL Discharge Plan Discharge Clinical Impression: Convulsion Patient Disposition: Home, Self-Care Instructions: Nonepileptic Seizures (DC) Additional Instructions: _ DISCHARGE DIAGNOSES: Convulsion of unclear cause unlikely to be classic tonic-clonic or grand mal seizure Normal lab work HISTORY OF PRESENTATION: ?Abnormal appearance and behavior just prior to arrival with an organized shaking change in mental status EMERGENCY DEPARTMENT COURSE,TESTS, TREATMENTS: While in the ED today you were monitored awake alert oriented and had a reassuring normal exam. You had basic lab work that was reassuring and normal DISCHARGE MEDICATIONS: ?[We have made no changes to your regular medication regimen] FOLLOW-UP: ?Call your primary or general physician soon as possible to discuss your symptoms, your ED visit and to discuss follow up plans Continue with your previously scheduled neurology follow up. We recommend against driving vehicle until it is elucidated what these activity is make sure it is not seizure INSTRUCTIONS ?& RETURN PRECAUTIONS: If any symptoms change first call your primary physician, if it is after-hours your primary doctors office should have a provider otm consultant you can speak with. If the symptoms are severe or very concerning to you then call 911 or return to the ED. Jose Alfredo Roche MD Emergency Physician [facility] Prescriptions: No Action No Known Home Meds Interventions: ED Discharge Assessment Last Done: 03/01/25 02:19 Discharge Date/Time: 03/01/25 02:28 Print Language: Surinamese
[2025-03-01 00:38] LABS: MANUAL DIFF FLAG NO
[2025-03-01 00:40] LABS: Basophils Percent Auto 0.4 % (0-2); Eosinophils Percent Auto 0.2 % (0-4); Hematocrit 35.3 % (37.0-47.0); Hemoglobin 11.9 g/dl (12.0-16.0); Imm Gran Abs Auto 0.04 X10*3/uL (0.00-0.03); Imm Gran Pct Auto 0.4 % (0.0-0.4); Lymphocytes Absolute Auto 1.3 X10*3/uL (1.2-4.9); Lymphocytes Percent Auto 12.3 % (20-40); Mean Corpuscular HGB Conc 33.7 g/dl (31.0-35.0); Mean Corpuscular Hemoglobin 30.6 pg (27.0-33.0); Mean Corpuscular Volume 90.7 fL (80.0-98.0); Monocytes Absolute Auto 0.4 X10*3/uL (0.1-1.2); Monocytes Percent Auto 4.1 % (2-11); Neutrophils Absolute Auto 8.9 x10*3/uL (2.0-8.3); Neutrophils Percent Auto 82.6 % (45-73); Platelet Count 262 X10*3/uL (160-400); Red Blood Count 3.89 X10*6/uL (4.20-5.50); White Blood Count 10.7 X10*3/uL (4.8-10.8)
[2025-03-01 01:01] LABS: Anion Gap 13 (12-20); Blood Urea Nitrogen 10 mg/dL (9-16); Calcium 9.2 mg/dL (8.4-10.2); Carbon Dioxide 24 mmol/L (22-29); Chloride 107 mmol/L (96-108); Creatinine Clr Calc Pharmacy 118.2; Estimated Glomerular Filt Rate > 60; Glucose Random 108 mg/dL (60-115); Potassium 3.6 mmol/L (3.3-5.1); Sodium 140 mmol/L (135-145)
[2025-03-01] MEDS: hydrOXYzine HCL 25 MG TABLET PO (01:04)
[2025-03-01 01:13] LABS: HCG Quantitative < 2 mIU/mL
[2025-03-01] MEDS: diazePAM 10 MG/2 ML CARTRIDGE 2.5 MG IVPUSH (01:30)
[2025-03-01] MEDS: diphenhydrAMINE HCL 50 MG/ML VIAL 12.5 MG IVPUSH (01:30)
[2025-03-01 02:19] VITALS: BP 103/59; PULSE 89; RESP 16; TEMP 36.6; O2SAT 97
--- NOTE | 2025-03-01 02:22 | PC.NURSE ---
pt medicated with hydroxyzine due to anxiety. sister at bedside, pt continued to have anxiety hyperventilating, MD to bedside.
--- NOTE | 2025-03-01 02:22 | PC.NURSE ---
Pt unable to take PO meds at this time. Pt medicated per MAR for continued hyperventilation, pt incontinent of urine. Pt reporting B/L hand cramping. MD to bedside. Pt assisted with breathing into bag. Cramping subsided after a few minutes. Lights dimmed to promote relaxation.
--- NOTE | 2025-03-01 02:24 | PC.NURSE ---
Pt states feeling better and feels safe to go home. Sister at bedside, agrees to take her home. Pt given d/c instructions, pt verbalizing understanding of d/c plan. wheelchair used to the waiting room.
== END 2025-03-01 02:28 | disposition home or self-care (01) ==
PROVIDERS: Emergency Provider Emergency Medicine; PCP Internal Medicine
DX: R56.9 Unspecified convulsions (principal); R42 Dizziness and giddiness
CPT/HCPCS: 36415; 80048; 84702; 85025; 96374; 96375; 99284; J1200; J3360

== ENCOUNTER 2025-03-30 09:54 | Emergency (ER) | payer OTHER, SELFPAY ==
[2025-03-30 10:12] VITALS: BP 120/73; BP 132/74; PULSE 73; PULSE 79; RESP 16; TEMP 37.1; O2SAT 100; O2SAT 97; BMI 20.2
--- OUTSIDE RECORDS SUMMARY | 2025-03-30 10:31 | XMS_ITS | Encounter Summary ---
Author Organization [facility] Address [address] [place] [address] Phone Care Team Providers Care Revenue Accountant Name Role Phone Inna Barroso MD Primary Care Provider [phone] Encounter Details Date Type Department Care Team (Late st Contact Info) Description 05/04/2017 Conversion Encounter [facility] [place] [address] [place] [address] Social History Tobacco Use Types Packs/Day Years [...] on filedocumented in this encounter Care Teams Revenue Accountant Relationship Specialty Start Date End Date Inna Barroso MD [address] [place] [address] PCP - General 04/28/17 12/20/22 documented as of this encounter
--- NOTE | 2025-03-30 11:27 | ED.GENADULT ---
HPI - General Adult General Chief complaint: Psychiatric Symptoms Stated complaint: STS SI/NO PLAN,FEELS HOPELESS,MED NOT WORKING Time Seen by Provider: 03/30/25 11:27 History of Present Illness ED Provider: Olivia NOYOLA narrative: The patient is a 29-year-old woman with a history of anxiety and depression. She says she is prescribed hydroxyzine and trazodone by her primary care doctor. She has a therapist whom she sees once a month. The patient says that she has been feeling somewhat depressed recently. She denies having done anything to harm herself. She says she has cut herself in the past and may have taken an overdose at 1 point in her life but she has not done anything like that recently. However she has been feeling more depressed in the last few weeks. She also says that she wakes up in the morning feeling ?sick. ? She says that she feels nauseated and unwell and feels her heart racing. She does not think she is . She says that she smokes marijuana. She uses alcohol occasionally but does not feel she is an alcoholic. She denies any other drug use. No fever, sweats, chills. She has a vague suicidal thoughts but no definite plan. Related Data Home Medications ?Medication ?Instructions ?Recorded ?Confirmed No Known Home Meds 08/29/24 08/29/24 Allergies Allergy/AdvReac Type Severity Reaction Status Date / Time CHICKEN NUGGETS/PATTIES Allergy Mild HIVES Uncoded 03/30/25 10:16 CHEESE CAKE Allergy Unknown HIVES Uncoded 03/30/25 10:16 Review of Systems Review of Systems: Yes all other systems are reviewed and are negative [facility] Past Medical History Medical History GERD (gastroesophageal reflux disease) Nausea & vomiting Cyclical vomiting Gastritis Anxiety Surgical History No pertinent past surgical history Family History Family History Father Medical history unknown Mother Medical history unknown Social History Social History (Updated 04/01/24 @ 09:50 by Breana Hernández MD) Housing: Apartment Unable to assess alcohol history related to: Unknown Alcohol intake: current Alcohol intake frequency: a few times a month Alcohol type: hard liquor Patient Tobacco Use Status: Never used Tobacco e-Cigarette/Vaping Use: Never Used Second Hand Smoke Exposure: Yes Substance Use Type: Marijuana Advance Directives: No Advance Directives Information Provided: No Do you have a plan to hurt others: No Plan Patient : No service: No Current occupational status: employed Cognitive needs: No Hearing needs: No Vision needs: No Physical Exam ED Vital Signs: Vital Signs - 24 hr 03/30/25 10:12 03/30/25 12:08 03/30/25 14:25 Temperature 98.7 F 97.9 F 97.9 F Pulse Rate 73 75 75 Respiratory Rate 16 14 14 Blood Pressure 132/74 113/74 113/74 Pulse Oximetry 97 98 98 Oxygen Delivery Method Room Air Room Air Room Air BMI result Body Mass Index 20.2 Const Other: The patient is awake, alert, pleasant, cooperative. She seems somewhat sleepy but otherwise appropriate. She does not seem in any distress. Orientation/consciousness: patient oriented x3 HENMT Other: Face is symmetrical, mucous membranes moist. Eyes Other: Pupils are round equal, conjunctivae are clear, extraocular movements intact General: appearance normal, both eyes and all related structures Neck Neck: Yes normal visual inspection and Yes full ROM Resp Effort & Inspection: normal respiratory effort Auscultation: clear to auscultation bilaterally Cardio Rate: regular rate Rhythm: regular rhythm Heart sounds: S1 normal heart sound present and S2 normal heart sound present GI Other: Abdomen is soft and nontender Skin Other: The skin is dry and unremarkable Neuro General: patient oriented x3, gait normal, tone normal, moves all extremities, no focal motor deficits and CN's II-XI intact bilaterally Extrem Other: There is no calf swelling or tenderness. No asymmetry. No peripheral edema. Psych Other: The patient seems sleepy. She seems reasonably well-kempt. She makes decent eye contact. She has a mildly flattened affect. She has very vague suicidal ideation without any definite plan. Medical Decision Making Medical Decision Making MDM Narrative: The patient is a 29-year-old female who presents complaining of symptoms of anxiety and vague suicidal ideation without any plan. She says that she has been waking up in the mornings feeling ?sick. ? She says that she feels like an addict who was dope sick. She feels very anxious. She is on hydroxyzine and trazodone prescribed by her PCP. She has a therapist. She does not have a psychiatric prescriber. She says that in the past she has engaged in cutting self-harm but she has not done any of that recently. The patient was medically cleared. Her labs are unremarkable. Initially the patient expressed an interest in talking to someone from the care team for possible advice about psychiatric medications. She did not wish to be hospitalized. However after she waited for awhile to speak with the care cleaning team member she ultimately felt that being in the emergency room was too unpleasant and she did not wish to stay here anymore. She denies suicidality. I do not feel there grounds to hold her against her will. I will provide her with referral to [facility], the outpatient clinic on [address] [facility] in [place]. She should also follow up with her PCP and her therapist. She should return if worse. Lab Data 03/30/25 11:53 03/30/25 11:53 Labs: Lab Results 03/30/25 03/30/25 Range/Units 11:53 12:03 WBC 9.1 (4.8-10.8) X10*3/uL RBC 3.78 L (4.20-5.50) X10*6/uL Hgb 11.3 L (12.0-16.0) g/dl Hct 34.0 L (37.0-47.0) % MCV 89.9 (80.0-98.0) fL MCH 29.9 (27.0-33.0) pg MCHC 33.2 (31.0-35.0) g/dl RDW 14.8 (11.0-16.0) % Plt Count 228 (160-400) X10*3/uL MPV 10.0 (9.4-12.3) fL Immature Gran % (Auto) 0.3 (0.0-0.4) % Neut % (Auto) 80.3 H (45-73) % Lymph % (Auto) 13.5 L (20-40) % Ramsey % (Auto) 5.4 (2-11) % Eos % (Auto) 0.2 (0-4) % Baso % (Auto) 0.3 (0-2) % Lymph # (Auto) 1.2 (1.2-4.9) X10*3/uL Ramsey # (Auto) 0.5 (0.1-1.2) X10*3/uL Eos # (Auto) 0.0 (0.0-0.4) X10*3/uL Baso # (Auto) 0.0 (0.0-0.2) X10*3/uL Abs Immat Gran (auto) 0.03 (0.00-0.03) X10*3/uL Absolute Neuts (auto) 7.3 (2.0-8.3) x10*3/uL Absolute Nucleated RBC 0.000 (0.0-0.012) X10*3/uL Nucleated RBC % (auto) 0.0 (0.0-0.2) /100WBC Sodium 141 (135-145) mmol/L Potassium 3.9 (3.3-5.1) mmol/L Chloride 108 (96-108) mmol/L Carbon Dioxide 25 (22-29) mmol/L Anion Gap 12 (12-20) BUN 12 (9-16) mg/dL Creatinine 0.65 (0.5-1.4) mg/dL Estim Creat Clear Calc 112.2 Estimated GFR > 60 Random Glucose 90 (60-115) mg/dL Calcium 8.9 (8.4-10.2) mg/dL Total Bilirubin 0.7 (0.0-1.0) mg/dL AST 19 (5-31) U/L ALT 10 (0-31) U/L Alkaline Phosphatase 41 (39-117) U/L Total Protein 6.8 (6.5-8.0) g/dL Albumin 4.4 (3.5-5.0) g/dL Beta HCG, Quant < 2 mIU/mL Salicylates < 5.0 L (15-30) mg/dL Urine Opiates Screen Not Detected (Not Detect) Ur Buprenorphine Scrn Not Detected (Not Detect) ng/mL Ur Oxycodone Screen Not Detected (Not Detect) ng/mL Urine Methadone Screen Not Detected (Not Detect) ng/mL Urine Fentanyl Screen Not Detected (Not Detect) Acetaminophen < 3 (<30) mcg/mL Ur Barbiturates Screen Not Detected (Not Detect) Ur Phencyclidine Scrn Not Detected (Not Detect) Ur Amphetamines Screen Not Detected (Not Detect) U Benzodiazepines Scrn Not Detected (Not Detect) Urine Cocaine Screen Not Detected (Not Detect) U Marijuana (THC) Screen POSITIVE H (Not Detect) Ethyl Alcohol < 10 mg/dL Independent Interpretation I performed an independent interpretation of an: EKG Interpretation: EKG at 11:34 shows normal sinus rhythm at 63 beats per minute. It is a normal EKG. Discharge Plan Discharge Clinical Impression: Anxiety, Depression Patient Disposition: Home, Self-Care Additional Instructions: I am sorry that we were not able to have you seen by our crisis clinicians today in a timely fashion. Your medical testing is very reassuring. Another option to try to get help for your symptoms would be to go to the [facility] ([facility]) outpatient clinic at [address] [facility] in [place]. They take walk-in appointment so you may go there without an appointment. The phone number is [phone]. [facility] also has a 24 hour crisis hotline which you can call at any time if you wish to speak to somebody confidentially about how you are feeling. The phone number is [phone]. Please return to the emergency room if you feel significantly worse. Prescriptions: No Action No Known Home Meds Referrals: [facility] [Outside] Breana Jama MD [Physician, Internal Medicine] Referral Note: anxiety Interventions: Moody-Suicide Risk Severity Scale Last Done: 03/30/25 11:42 ED Discharge Assessment Last Done: 03/30/25 14:25 Discharge Date/Time: 03/30/25 14:35 Print Language: Sri Lankan
--- NOTE | 2025-03-30 11:34 | ECG_ITS ---
Test Reason : PALPITATIONS Blood Pressure : */* mmHG Vent. Rate : 63 BPM Atrial Rate : 63 BPM P-R Int : 126 ms QRS Dur : 74 ms QT Int : 388 ms P-R-T Axes : 50 73 53 degrees QTcB Int : 397 ms Normal sinus rhythm Normal ECG When compared with ECG of 11-Jan-2025 10:02, No significant change was found Referred By: Alli Baker Electronically Signed By: YIFAN HUTCHINS
[2025-03-30 12:00] LABS: MANUAL DIFF FLAG NO
[2025-03-30 12:01] LABS: Hematocrit 34.0 % (37.0-47.0); Hemoglobin 11.3 g/dl (12.0-16.0); Imm Gran Abs Auto 0.03 X10*3/uL (0.00-0.03); Imm Gran Pct Auto 0.3 % (0.0-0.4); Lymphocytes Absolute Auto 1.2 X10*3/uL (1.2-4.9); Mean Corpuscular HGB Conc 33.2 g/dl (31.0-35.0); Mean Corpuscular Hemoglobin 29.9 pg (27.0-33.0); Mean Corpuscular Volume 89.9 fL (80.0-98.0); NRBC Abs Auto 0.000 X10*3/uL (0.0-0.012); NRBC Pct Auto 0.0 /100WBC (0.0-0.2); Platelet Count 228 X10*3/uL (160-400); Red Blood Count 3.78 X10*6/uL (4.20-5.50); White Blood Count 9.1 X10*3/uL (4.8-10.8)
[2025-03-30 12:08] VITALS: BP 113/74; PULSE 75; RESP 14; TEMP 36.6; O2SAT 98
[2025-03-30 12:15] LABS: Alanine Aminotransferase 10 U/L (0-31); Albumin Level 4.4 g/dL (3.5-5.0); Alkaline Phosphatase 41 U/L (39-117); Anion Gap 12 (12-20); Aspartate Amino Transferase 19 U/L (5-31); Blood Urea Nitrogen 12 mg/dL (9-16); Calcium 8.9 mg/dL (8.4-10.2); Carbon Dioxide 25 mmol/L (22-29); Chloride 108 mmol/L (96-108); Creatinine Clr Calc Pharmacy 112.2; Estimated Glomerular Filt Rate > 60; Potassium 3.9 mmol/L (3.3-5.1); Sodium 141 mmol/L (135-145); Total Protein 6.8 g/dL (6.5-8.0)
[2025-03-30 12:18] LABS: Acetaminophen LAB < 3 mcg/mL (<30); Salicylate < 5.0 mg/dL (15-30)
[2025-03-30 12:25] LABS: Cannabinoid Screen Urine POSITIVE (Not Detect)
[2025-03-30 14:25] VITALS: BP 113/74; PULSE 75; RESP 14; TEMP 36.6; O2SAT 98
== END 2025-03-30 14:35 | disposition home or self-care (01) ==
PROVIDERS: Emergency Provider Emergency Medicine; PCP Student in an Organized Health Care Education/Training Program
DX: F33.1 Major depressive disorder, recurrent, moderate (principal); F41.9 Anxiety disorder, unspecified; R45.851 Suicidal ideations; R00.2 Palpitations; Z51.81 Encounter for therapeutic drug level monitoring; Z79.899 Other long term (current) drug therapy
CPT/HCPCS: 36415; 80053; 80143; 80179; 80307; 84702; 85025; 93005; 99285

== ENCOUNTER → 2025-03-30 11:34 | Outpatient (BNV) | payer OTHER, SELFPAY | PROVIDERS: Emergency Provider Emergency Medicine; PCP Student in an Organized Health Care Education/Training Program; Visit Provider Internal Medicine | DX: R00.2 Palpitations (principal) | CPT/HCPCS: 93010 ==

== ENCOUNTER 2025-04-10 08:52 | Outpatient (AMB) | payer OTHER, SELFPAY ==
--- NOTE | 2025-04-10 08:55 | MHC.PC.OV ---
Vital Signs 04/10/25 08:56 Height 5 ft 6 in Weight 121 lb BMI 19.5 BP 116/80 Blood Pressure Location Lt brachial Position Sitting Intake Visit Reasons: annual exam Intake Note: Patient here for an annual physical exam, [facility] paperwork Outreach Professional Required: No Accompanied by: Self / Same As Patient Allergies CHICKEN NUGGETS/PATTIES Allergy (Mild, Uncoded 04/10/25 09:08) HIVES CHEESE CAKE Allergy (Unknown, Uncoded 04/10/25 09:08) HIVES Medication List - Last Reconciled 04/10/25 by Breana Hernández MD trazodone 50 mg PO BEDTIME PRN Tobacco use date assessed: 04/10/25 Dental Screening Dental Screen Date: 04/10/25 Did you have a dental visit in the last 12 months?: Yes Did you have a dental problem in the last 6 months where you did not have access to dental care?: No Was dental information given to patient?: Patient has dentist HPI HPI Comments History of Present Illness Details The patient is a 29-year-old female presenting for a physical exam and evaluation of syncope and anxiety. She has a history of anxiety disorder, leading to multiple hospital visits due to severe episodes of feeling out of control. Medications include trazodone and hydroxyzine, though the latter's effectiveness is uncertain. The patient experiences syncope with loss of consciousness, vomiting, and shaking upon waking. A neurology referral is planned to rule out a seizure disorder, as symptoms may mimic seizures. She denies recent surgeries and lacks knowledge of her biological family's medical history due to adoption. Lifestyle factors include nightly marijuana use for sleep and occasional social alcohol consumption. She has been informed of marijuana's potential effects on anxiety and depression. Preventative care includes updating her overdue tetanus vaccination, last recorded in 2005. She had her Pap smear done this year. [facility] Medical History (Updated 04/10/25 @ 09:27 by Breana Hernández MD) GERD (gastroesophageal reflux disease) Nausea & vomiting Cyclical vomiting Gastritis Anxiety Surgical History No pertinent past surgical history Family History Father Medical history unknown Mother Medical history unknown Social History (Updated 04/10/25 @ 09:16 by Breana Hernández MD) Housing: Apartment Unable to assess alcohol history related to: Unknown Alcohol intake: current Alcohol intake frequency: a few times a month Alcohol type: hard liquor Patient Tobacco Use Status: Former Tobacco user e-Cigarette/Vaping Use: Never Used Second Hand Smoke Exposure: Yes Substance Use Type: Marijuana service: No Current occupational status: employed Current occupational exposures/hazards: No Cognitive needs: No Hearing needs: No Vision needs: No Questionnaire PHQ-9 Over the last 2 weeks, how often have you been bothered by any of the following problems? 1. Little interest or pleasure in doing things: several days 2. Feeling down, depressed, or hopeless: several days 3. Trouble falling or staying asleep, or sleeping too much: several days 4. Feeling tired or having little energy: several days 5. Poor appetite or overeating: more than half the days 6. Feeling bad about yourself - or that you are a failure or have let yourself or your family down: several days 7. Trouble concentrating on things, such as reading the newspaper or watching television: several days 8. Moving or speaking so slowly that other people could have noticed. Or the opposite - being so fidgety or restless that you have been moving around a lot more than usual: several days 9. Thoughts that you would be better off or of hurting yourself in some way: several days Total score: 10 Depression Screening Interpretation: Positive Depression Screening Follow-up: Existing condition, In treatment and Follow-up Visit Requested Depression Screening Done: Yes 45555 - PHQ-9 Billing: Yes Source: Developed by Drs. Josue Lamar, Danielle Babb, Sumanth Metcalf and colleagues, with an educational ryanne from [employer]. Thrive Questionnaire Date Thrive assessed: 04/10/25 I am a: Patient What is your living situation today?: I do not have a steady places to live I am temporarily staying with others Within the past 12 months, did the food you bought not last and you didn't have the money to get more?: Sometimes True Within the past 12 months, did you worry whether your food would run out before you got money to buy more?: Sometimes True Do you have trouble paying for medicines?: No Do you have trouble getting transportation to medical appointments?: No Do you have trouble paying your heating and electricity bill?: Yes Do you have trouble taking care of your child, family member or friend?: No Do you have trouble with day-to-day activities such as bathing, preparing meals, shopping, managing finances, etc.?: No Are you currently unemployed and looking for a job?: No Are you interested in more education?: No Please select the resources that you would like help with: Housing/Skilled Nursing, Food and Utilities Currently or been in a relationship where the following occur: I choose not to answer THRIVE Score: 4 AUDIT C Alcohol Use Questionnaire (AUDIT-C) 1. How often do you have a drink containing alcohol?: Monthly or less 2. How many drinks containing alcohol do you have on a typical day when you are drinking?: 1 or 2 3. How often do you have six or more drinks on one occasion?: Less than monthly Total Score: 2 Score Reviewed/Action Taken: No FRANCISCA-7 AMB Questionnaire FRANCISCA-7 Date FRANCISCA - 7 assessed: 04/10/25 Feeling nervous, anxious, or on edge: 3 = Nearly every day Not being able to stop or control worryin = Nearly every day Worrying too much about different things: 3 = Nearly every day Trouble relaxin = Nearly every day Being so restless that it is hard to sit still: 3 = Nearly every day Becoming easily annoyed or irritable: 3 = Nearly every day Feeling afraid as if something awful might happen: 3 = Nearly every day Total FRANCISCA-7 score (0-4 normal; 5-9 mild; 10-14 moderate; 15-21 severe): 21 Source: Developed by Drs. Josue Lamar, Danielle Babb, Sumanth Metcalf and colleagues, with an educational ryanne from [employer]. FRANCISCA-7 Assessment Billing FRANCISCA-7 Assessment Tool: FRANCISCA-7 Assessment 50812 Review of Systems Const All systems reviewed & are unremarkable except as noted in HPI and below Card Denies chest pain at rest, Denies chest pain with activity, Denies edema, Denies irregular heart rhythm, Denies claudication, Denies dyspnea, Denies dyspnea on exertion, Denies orthopnea, Denies paroxysmal nocturnal dyspnea and Denies slow heart rate Resp Denies cough, Denies dyspnea and Denies dyspnea on exertion GI Denies abdominal pain, Denies change in bowel habits, Denies excessive flatus, Denies nausea and Denies vomiting Denies urinary incontinence, Denies urinary hesitancy and Denies urinary urgency Musc Denies abnormal gait, Denies atrophy, Denies deformity and Denies limited range of motion Skin/Breast Denies bleeding lesions, Denies changing lesions and Denies rash Neuro Denies abnormal gait and Denies lack of coordination Physical exam (Primary Care) Vital Signs: Last Vital Signs BP 116/80 04/10/25 08:56 BMI result Body Mass Index 19.5 Tobacco/Smoking Status: Tobacco use Status Tobacco use date assessed 04/10/25 04/10/25 09:01 Patient Tobacco Use Status Never used Tobacco 04/10/25 09:01 e-Cigarette/Vaping Use Never Used 04/10/25 09:01 PHQ-9: PHQ-9 Score PHQ-9: Total score 10 04/10/25 09:03 Depression Screening Interpretation: Positive Depression Screening Follow-up: Existing condition, In treatment and Follow-up Visit Requested Thrive Assessment: Date of Thrive Assessment Date Thrive assessed 04/10/25 04/10/25 09:01 Currently or been in a relationship where the following occur: I choose not to answer [facility] Head: Yes normal to inspection, Yes normocephalic and Yes atraumatic Ears: external ears normal Eyes General: appearance normal, both eyes and all related structures Eyelids: Yes eyelids normal Conjunctivae: conjunctivae normal Neck Neck: Yes normal visual inspection and Yes supple Resp Effort & Inspection: normal respiratory effort Auscultation: clear to auscultation bilaterally Cardio Jugular venous distension: no JVD Rate: regular rate Rhythm: regular rhythm Heart sounds: S1 normal heart sound present and S2 normal heart sound present GI Inspection: Yes normal to inspection Palpation (GI): Soft to palpation and nontender Auscultation: normal bowel sounds Skin General skin exam: no rashes or lesions noted Neuro General: no focal motor deficits Extrem General: Yes full ROM Psych Appearance: grossly normal Coding Level of Care Code Est Pt Level 3 (76552) Est Pt Prev Care 18-39y(27682) Diagnoses Physical exam Z00.00 Vasovagal syncope R55 Syncope type: vasovagal syncope Mild recurrent major depression F33.0 Generalized anxiety disorder F41.1 Additional Codes PHQ-9 - 21048 - PHQ-9 Billing: Yes ([id number]) FRANCISCA-7 Assessment Billing - FRANCISCA-7 Assessment Tool: FRANCISCA-7 Assessment 57642 ([id number]) Time Spent (min) 32 Assessment & Plan Assessment & Plan (1) Physical exam: Code(s): Z00.00 - Encounter for general adult medical examination without abnormal findings Category: Medical (2) Syncope: Code(s): R55 - Syncope and collapse Category: Medical Qualifiers: Syncope type: vasovagal syncope Qualified Code(s): R55 - Syncope and collapse (3) Mild recurrent major depression: Code(s): F33.0 - Major depressive disorder, recurrent, mild Category: Medical (4) Generalized anxiety disorder: Code(s): F41.1 - Generalized anxiety disorder Category: Medical Plan The plan includes updating the patient's tetanus vaccination, which is overdue since 2005. For the syncope and possible seizure disorder, a referral to neurology is planned to further evaluate the symptoms and rule out neurological causes. Additionally, imaging studies such as CT scan, carotid doppler, echocardiogram, and EKG will be ordered to investigate the syncope further. The patient is advised to continue her current medications for anxiety, with a consideration to reassess the effectiveness of hydroxyzine. She is also encouraged to resume therapy sessions to aid in managing her anxiety disorder. Patient was informed and verbally consented to the use of an ambient scribe for clinic note documentation during this visit. Orders: Orders CA echo transthoracic complete Today R55 - Syncope and collapse US carotid duplex BI Today R55 - Syncope and collapse ECG 12 lead EKG Today R55 - Syncope and collapse CT head/brain wo IV con Today R55 - Syncope and collapse Referrals Neurology Referral R55 - Syncope and collapse Medications: New trazodone 50 mg PO BEDTIME 90 days PRN 90 tabs 1RF insomnia trazodone 50 mg PO BEDTIME PRN 90 tabs 1RF insomnia 90 days
[2025-04-10 08:56] VITALS: BP 116/80; BMI 19.5
--- OUTSIDE RECORDS SUMMARY | 2025-04-10 09:21 | XMS_ITS | Clinical Summary ---
Author Organization [facility] Address [address] [place] [address] Phone Care Team Providers Care Storage Consultant Name Role Phone Martín You MD Primary Care Provider [phone] Allergies Active Allergy Reactions Criticality Noted Date Comments Other Hives High 08/04/2020 Cheesecake and chicken nuggets Medications traZODone (DESYREL) 50 mg tablet Take 1 tablet (50 mg total) by mouth at bedtime as needed. Active Encounters Date Type Department Care Team Description 01/13/2025 1:20 PM EDT Office Visit Obstetrics and Gynecology - [address] [address] Angelica Coleman, [place] Screen for STD (sexually transmitted disease) (Primary Dx); Cervical cancer screening; Vaginal discharge from Last 3 Months Surgical History Surgery Date Site/Laterality Comments MYOMECTOMY 2018 PROCEDURE: [place] LAPS MYOMECTOMY EXC 1-4 MYOMAS 250 GM/<; COMMENT: needed a blood transfusion Medical History Medical History Date Comments PID (acute pelvic inflammatory disease) 02/2019 DX:PID (acute pelvic inflammatory disease); COMMENT: chlamydia Family History Relation Name Status Comments Father Other Mother Other Social History Tobacco Use Types Packs/Day Years Used Date Smoking Tobacco: Never Smokeless Tobacco: Never Alcohol Use Standard Drinks/Week Comments Yes 0 (1 standard drink = 0.6 oz pur e alcohol) socially Comments No Sex and Gender Information Value Date Recorded Sex Assigned at Not on file Legal Sex Female 6:15 PM EST Gender Identity Not on file Sexual Orientation Not on file Obstetrics History Last Filed Vital Signs Vital Sign Reading Time Taken Comments Blood Pressure 110/72 01/13/2025 1:10 PM EDT Pulse 79 01/13/2025 1:10 PM EDT Temperature - - Respiratory Rate 18 01/13/2025 1:10 PM EDT Oxygen Saturation - - Inhaled Oxygen Concentration - - Weight 55.8 kg (123 lb) 01/13/2025 1:10 PM EDT Height 165.1 cm (5' 5 ) 01/13/2025 1:10 PM EDT Body Mass Index 20.47 01/13/2025 1:10 PM EDT Plan of Treatment Health Maintenance Due Date Last Done Comments DTaP,Tdap,and Td Vaccines (6 - Tdap) 2004 01/27/1999, 03/18/1995, 1994, Additional history exists HIV Screening 08/27/2022 Hepatitis C Screening 08/27/2022 Social Influencers of Health Screening 08/27/2022 COVID-19 Vaccine () 05/19/2024 Depression Screening 2024 Influenza Vaccine (#1) 2025 Cervical Cancer Screening: HPV 01/13/2030 01/13/2025 Hepatitis B Vaccines Completed 05/19/1994, 1993, 1993 [...] 5 Years) and At-Risk Patients (6 to 49 Years) Aged Out No longer eligible based on patient's age to complete this topic RSV Immunization Patients Under 20 months Aged Out No longer eligible based on patient's age to complete this topic Varicella Vaccines Aged Out No longer eligible based on patient's age to complete this topic Procedures Procedure Name Priority Date/Time Associated Diagnosis Comments CHLAMYDIA TRACHOMATIS AND NEISSERIA GONORRHOEAE BY TMA, THINPREP Routine 01/13/2025 2:14 PM EDT Cervical cancer screening PAP SMEAR Routine 01/13/2025 2:14 PM EDT Cervical cancer screening HPV WITH REFLEX GENOTYPE Routine 01/13/2025 2:14 PM EDT Cervical cancer screening TRICHOMONAS VAGINALIS ANTIGEN Routine 01/13/2025 2:14 PM EDT Vaginal discharge WET PREP, GENITAL Routine 01/13/2025 2:1 4 PM EDT Vaginal discharge from Last 3 Months Results * Chlamydia trachomatis and neisseria gonorrhoeae by tma, thinprep (01/13/2025 2:14 PM EDT) N. gonorrhoeae, RNA Probe Negative Negative LAB MICROBIOLOGY METHOD 01/14/2025 11:33 AM EDT [facility] Chlamydia, RNA Probe Negative Negative LAB MICROBIOLOGY METHOD 01/14/2025 11:33 AM EDT [facility] Brushing/Spatula Cervix uteri structure / Unknown 01/13/2025 2:14 PM EDT 01/14/2025 6:26 AM EDT us Angelica CARMEN LAB CYTOLOGY ORDERABLES Agata huggins Result [facility] [address] [place] [address], * HPV with reflex genotype (01/13/2025 2:14 PM EDT) HPV Negative Negative LAB MICROBIOLOGY METHOD 01/14/2025 1:16 PM EDT [facility] Brushing/Spatula Cervix uteri structure / Unknown 01/13/2025 2:14 PM EDT 01/14/2025 6:26 AM EDT us Angelica CARMEN LAB MOLECULAR DIAGNOSTICS OR DERABLES Final Result [facility] [address] [place] [address], [place] [phone] * Trichomonas vaginalis antigen (01/13/2025 2:14 PM EDT) Trichomonas vaginalis Negative Negative 01/13/2025 9:35 PM EDT [facility] Swab Vaginal structure / Unknown Non-blood Collection / Unknown 01/13/2025 2:14 PM EDT 01/13/2025 2:14 PM EDT us Angelica CARMEN LAB MICROBIOLOGY - GENERAL O RDERABLES Final Result Performing Organization Address [facility]/ZIP Co de Phone Number [facility] [address] [place] [address], [place] [phone] * Wet prep, genital (01/13/2025 2:14 PM EDT) Clue Cells, Wet Prep Negative Negative 01/13/2025 9:30 PM EDT [facility] Yeast, Wet Prep Negative Negative 01/13/2025 9:30 PM EDT [facility] Trichomonas, Wet Prep Indeterminate Negative 01/13/2025 9:30 PM EDT [facility] Comment:Refer to Trichomonas antigen. Swab Vaginal structure / Unknown Non-blood Collection / Unknown 01/13/2025 2:14 PM EDT 01/13/2025 2:14 PM EDT us Angelica CARMEN LAB MICROBIOLOGY - GENERAL O RDERABLES Final Result Performing Organization Address [facility]/ZIP Co de Phone Number [facility] [address] [place] [address], [place] [phone] * (ABNORMAL) Pap smear (01/13/2025 2:14 PM EDT) Interpretation Atypical squamous cells of undetermined significance(A) 01/16/2025 10:51 AM EDT [facility] General Categorization Epithelial cell abnormality, see interpretation 01/16/2025 10:51 AM EDT [facility] LMP 12/28/2024 01/16/2025 10:51 AM EDT [facility] Specimen Adequacy Satisfactory for evaluation, endocervical/tra nsformation zone component absent 01/16/2025 10:51 AM EDT [facility] Pap Methodology Liquid Based Pap Test 01/16/2025 10:51 AM EDT [facility] Disclaimer The Pap test is a screening test which carries an inherent false negative rate. These test results should be correlated with the patient's clinical findings and history. This Pap test was processed using an automated screening system. Technical cytopathology services provided by [facility], at [address] [place] [address] (CLIA # [id number]/Gale Mcfarland MD, Car Head Liner Installer.) 01/16/2025 10:51 AM EDT [facility] Console Pap Interpretation Reported 01/16/2025 10:51 AM EDT [facility] Brushing/Spatula Cervix uteri structure / Unknown 01/13/2025 2:14 PM EDT 01/13/2025 2:14 PM EDT Angelica CARMEN LAB CYTOLOGY ORDERABLES Agata l Result [facility] [address] [place] [address], [place] [phone] from Last 3 Months Insurance [facility] Care Teams Storage Consultant Relationship Specialty Start Date End Date Martín You MD [address] [place] [address] Dr Morales [address] [facility] [place] [address] PCP - General Internal Medicine 06/18/19
--- OUTSIDE RECORDS SUMMARY | 2025-04-10 09:21 | XMS_ITS | Encounter Summary ---
Author Organization [facility] Address [address] [place] [address] Phone Care Team Providers Care Financial Internship Name Role Phone Inna Barroso MD Primary Care Provider [phone] Encounter Details Date Type Department Care Team (Late st Contact Info) Description 05/04/2017 Conversion Encounter [facility] [place] [address] [place] [address] Social History Tobacco Use Types Packs/Day Years [...] on filedocumented in this encounter Care Teams Financial Internship Relationship Specialty Start Date End Date Inna Barroso MD [address] [place] [address] PCP - General 04/28/17 12/20/22 documented as of this encounter
--- OUTSIDE RECORDS SUMMARY | 2025-04-10 09:21 | XMS_ITS | Clinical Summary ---
Author Organization [facility] Address [address] [place] [address] Phone Care Team Providers Care Slinger Sequins Name Role Phone Breana Jama MD Primary Care Provid er Allergies Active Allergy Reactions Criticality Noted Date Comments Other Hives High 08/04/2020 Cheesecake and chicken nuggets Medications promethazine (PHENERGAN) 12.5 MG tablet Take 1 tablet (12.5 mg total) by mouth every 8 (eight) hours as needed for nausea. 10 tablet 9 Active Additional Information Patient not taking.Reported on 04/26/2021 promethazine (PHENERGAN) [address] 25 mg rectally every 6 (six) hours as needed for nausea. Active morphine (MSIR) 15 MG tablet Take 1 tablet (15 mg total) by mouth every 4 (four) hours as needed for pain (specific location in comments). Partial fill ok 4 tablet 1 Active Active Problems No known active problems Social History Tobacco Use Types Packs/Day Years Used Date Smoking Tobacco: Never Smokeless Tobacco: Never Alcohol Use Standard Drinks/Week Comments Not Currently 0 (1 standard drink = 0.6 oz pur e alcohol) Education Answer Date Recorded Are you interested in more education? Not on winifred e 01/13/2023 Are you concerned about learning? Not on file 01/13/2023 No 01/13/2023 No 01/13/2023 Digital Access Answer Date Recorded No 02/14/2023 No 02/14/2023 Reliable internet access at home? Not on file 02/14/2023 Device with a working camera? Not on file Comments Unknown Sex and Gender Information Value Date Recorded Sex Assigned at Female 06/23/2019 6:19 AM EDT Legal Sex Female 5:59 AM EDT Gender Identity Not on file Sexual Orientation Not on file Last Filed Vital Signs Vital Sign Reading Time Taken Comments Blood Pressure 119/86 04/26/2021 12:11 PM EDT Pulse 88 04/26/2021 12:11 PM EDT Temperature 36.8 C (98.2 F) 04/26/2021 8:48 AM EDT Respiratory Rate 16 04/26/2021 12:11 PM EDT Oxygen Saturation 100% 04/26/2021 12:11 PM EDT Inhaled Oxygen Concentration - - Weight 53.5 kg (118 lb) 04/26/2021 9:59 AM EDT Height 167.6 cm (5' 6 ) 04/26/2021 9:59 AM EDT Body Mass Index 19.05 04/26/2021 9:59 AM EDT Plan of Treatment Not on file Medical Devices Not on file Insurance ACO ACO ACO ACO ACO ACO ACO Care Teams Slinger Sequins Relationship Specialty Start Date End Date Breana Jama MD [address] [place] [address] PCP - General Internal Medicine 06/23/19 Additional Source Comments The information contained in this document represents components of the legal health record. It is not the complete legal health record.[facility]
== END 2025-04-10 09:23 | disposition home or self-care (01) ==
LOC: HO.HMCH 08:53
PROVIDERS: PCP Internal Medicine; Visit Provider Internal Medicine
DX: Z00.00 Encounter for general adult medical examination without abnormal findings (principal); R55 Syncope and collapse; F33.0 Major depressive disorder, recurrent, mild; F41.1 Generalized anxiety disorder

== ENCOUNTER → 2025-04-10 08:52 | Outpatient (BNVA) | payer OTHER, SELFPAY | PROVIDERS: PCP Internal Medicine; Visit Provider Internal Medicine | DX: Z00.00 Encounter for general adult medical examination without abnormal findings (principal); R55 Syncope and collapse; F33.0 Major depressive disorder, recurrent, mild; F41.1 Generalized anxiety disorder; Z13.31 Encounter for screening for depression; Z13.39 Encounter for screening examination for other mental health and behavioral disorders | CPT/HCPCS: 96127; 99212; 99395 ==

== ENCOUNTER → 2025-06-02 12:59 | Outpatient (REF) | payer SELFPAY ==
--- NOTE | 2025-06-02 13:01 | CA_ITS ---
Transthoracic Echocardiogram Patient (Last, First, Middle): Leah Chavis G Gender: F Date of : 1995 Age: 29 Procedure Date: 06/02/2025 Procedure Type: Transthoracic Echocardiogram Location: OP Height: 167.64 cm Weight: 54.89 kg BSA: 1.62 m2 Heart Rate: bpm BP: 116 / 80 mmHg Blueprint Reader: IMELDA Referring MD: Breana Hernández MD Symptoms: R55 - Syncope and collapse Study Quality: Fair, difficult acoustic windows ECG Rhythm: Sinus Conclusions: - The left ventricular systolic function is normal. The calculated ejection fraction is 63% by biplane method. - No obvious valvular pathology seen on this study. Findings Procedure Information The study quality is limited by patients body habitus. Left Ventricle Normal left ventricular cavity size. There is normal left ventricular wall thickness. The left ventricular systolic function is normal. The calculated ejection fraction is 63% by biplane method. There is no evidence of regional wall motion abnormalities. Diastolic function is normal for age. Right Ventricle Normal right ventricular cavity size and systolic function. Atria Both atria are normal in size. Aortic Valve There is a normal trileaflet aortic valve. There is no aortic valve stenosis. There is no aortic valve regurgitation. Mitral Valve The mitral valve appears normal. There is no mitral valve regurgitation. There is no mitral valve stenosis. Pulmonic Valve The pulmonic valve is likely normal. Tricuspid Valve There is mild tricuspid valve regurgitation. There is no evidence of pulmonary hypertension. Great Vessels The asc aorta is normal in size. Venous The inferior vena cava is mildly dilated and collapses less than 50% with inspiration. Pericardium/Pleural There is no evidence of pericardial effusion. Prior Study Comparison No prior study available for comparison. Recommendations, Care & Conclusions No obvious valvular pathology seen on this study. Measurements 2D Linear Measurements IVSd: 0.67 0.6-0.9/0.6-1.0 cm LVIDd: 4.19 3.9-5.3/4.2-5.9 cm LVIDd Index: 2.59 2.4-3.2/2.2-3.1 cm/m2 LVIDs: 2.95 2.0-3.6 cm LVPWd: 0.72 0.7-1.1 cm LA Diam: 2.80 2.7-3.8/3.0-4.0 cm LAIDs Index: 1.73 1.5-2.3 cm/m2 LV Mass: 104.67 67-162/88-224 g LV Mass Index: 64.61 43-95/49-115 g/m2 LVOT Diam: 1.90 3.0+(-)1.3 cm 2D Systolic Function EF 4C: 63.70 >55% EF 2C: 62.20 >55% EF BiP: 62.60 >55% Mitral Valve MV Pk E: 0.76 MV PK A: 0.49 MV Decel Time: 219.00 E/A: 1.50 E'Lateral: 15.20 E'Medial: 12.40 E/E' Med: 6.10 E/E' Lat: 5.00 PHT: 64.00 MVA PHT: 3.44 Decel Loving: 3.46 Aortic Valve AoV Pk Herbert: 1.30 AoV Mn Herbert: 0.90 AoV VTI: 0.27 AoV Pk Grad: 7.00 Aov Mn Grad: 4.00 RIRI Cont.VTI: 2.06 LVOT LVOT Pk Herbert: 1.02 LVOT Mn Herbert: 0.64 LVOT VTI: 0.20 LVOT Pk Grad: 4.00 LVOT Mn Grad: 2.00 LVOT Diam: 1.90 LVOT Area: 2.84 Diastolic Function MV Pk E: 0.76 MV Pk A: 0.49 E/A: 1.50 E'Medial: 12.40 E/E' Med: 6.10 E' Laterial: 15.20 E/E' Lat: 5.00 Right Ventricle TAPSE (mm): 25.10 TVS' Herbert: 12.40 Tricuspid Valve TR Pk Herbert: 2.24 TR Pk Grad: 20.00 RA Press: 15.00 RVSP: 35.00 Great Vessels Aorta Sinus of Valsalva: 2.92 2.0-3.[address] Ridge: 2.18 1.7-3.4 cm Ao Asc: 2.30 2.1-3.4 cm Updated in Other Vendor System with Status of Final Sanju Talavera MD electronically signed on 06/02/2025 3:56:09 PM with status of Final
--- NOTE | 2025-06-02 13:01 | ECG_ITS ---
Test Reason : R55 Blood Pressure : */* mmHG Vent. Rate : 92 BPM Atrial Rate : 92 BPM P-R Int : 134 ms QRS Dur : 78 ms QT Int : 338 ms P-R-T Axes : 66 74 39 degrees QTcB Int : 417 ms Normal sinus rhythm Normal ECG When compared with ECG of 30-Mar-2025 11:34, No significant change was found Referred By: Breana Hernández Electronically Signed By: YIFAN HUTCHINS
--- OUTSIDE RECORDS SUMMARY | 2025-06-02 17:58 | XMS_ITS | Clinical Summary ---
Author Organization [facility] Address [address] [place] [address] Phone Care Team Providers Care Plastic Sheets Finishing Supervisor Name Role Phone Unavailable Primary Care Provider [...] of 2 - 13+ 2-dose series) 2006 HPV Vaccines (1 - 3-dose SCDM series) 2020 Influenza Vaccines (#1) 2025 COVID-19 Vaccine ( season) 2025 Hepatitis B Vaccines Completed 05/19/1994, 1993, 1993 HIB Vaccines Completed 03/18/1995, 09/1994, 05/19/1994, Additional history exists MMR Vaccines Completed 11/16/1997, 11/16/1994 IPV Vaccines Completed 01/27/1999, 09/1994, 05/19/1994, Additional history exists Hepatitis A Vaccines Aged Out No long [...]
--- OUTSIDE RECORDS SUMMARY | 2025-06-02 17:58 | XMS_ITS | Clinical Summary ---
Author Organization [facility] [address] [facility] Building Address [address] [facility] [place] [address] Phone Care Team Providers Care Unit Manager Name Role Phone Martín You MD Primary Care Provider [phone] Allergies Active Allergy Reactions Criticality Noted Date Comments Other Hives High 08/04/2020 Cheesecake and chicken nuggets Medications traZODone (DESYREL) 50 mg tablet Take 1 tablet (50 mg total) by mouth at bedtime as needed. Active Surgical History Surgery Date Site/Laterality Comments MYOMECTOMY 2018 PROCEDURE: [place] LAPS MYOMECTOMY EXC 1-4 MYOMAS 250 GM/<; [...] 08/27/2022 Social Influencers of Health Screening 08/27/2022 Depression Screening 2024 COVID-19 Vaccine ( season) 2025 Influenza Vaccine (#1) 2025 Cervical Cancer Screening: [...] Procedure Name Priority Date/Time Associated Diagnosis Comments HPV WITH REFLEX GENOTYPE Routine 01/13/2025 2:14 PM EDT Cervical cancer screening from Last 3 Months or Most Recently Relevant to Health Maintenance Results * HPV with reflex genotype (01/13/2025 2:14 PM EDT) HPV Negative Negative LAB MICROBIOLOGY METHOD 01/14/2025 1:16 PM EDT [facility] Brushing/Spatula Cervix uteri structure / Unknown 01/13/2025 2:14 PM EDT 01/14/2025 6:26 AM EDT us Angelica CARMEN LAB MOLECULAR DIAGNOSTICS OR DERABLES Final Result [facility] [address] [place] [address], from Last 3 Months or Most Recently Relevant to Health Maintenance Insurance [facility] Care Teams Unit Manager Relationship Specialty Start Date End Date Martín You MD [address] [place] [address] [address] [facility] [place] [address] PCP - General Internal Medicine 06/18/19
--- OUTSIDE RECORDS SUMMARY | 2025-06-02 17:58 | XMS_ITS | Clinical Summary ---
Author Organization [facility] Address [address] [place] [address] Phone Care Team Providers Care Spout Liner Name Role Phone Breana Jaam MD Primary Care Provid er Allergies Active [...] ACO [place] [address] Care Teams Spout Liner Relationship Specialty Start Date End Date Breana Jama MD [address] [place] [address] PCP - General Internal Medicine 06/23/19 Additional Source Comments The information contained in this document represents components of the legal health record. It is not the complete legal health record.[facility]
--- OUTSIDE RECORDS SUMMARY | 2025-06-02 17:58 | XMS_ITS | Encounter Summary ---
Author Organization [facility] Address [address] [place] [address] Phone Care Team Providers Care Marker Maker Name Role Phone Inna Barroso MD Primary Care Provider [phone] Encounter Details Date Type Department Care Team (Late st Contact Info) Description 05/04/2017 Conversion Encounter [facility] [place] [address] [place] [address] Social History Tobacco Use Types Packs/Day Years [...] on filedocumented in this encounter Care Teams Marker Maker Relationship Specialty Start Date End Date Inna Barroso MD [address] [place] [address] PCP - General 04/28/17 12/20/22 documented as of this encounter
== END ==
LOC: HO.CARD 12:59
PROVIDERS: PCP Internal Medicine; Visit Provider Internal Medicine
DX: R55 Syncope and collapse (principal)
CPT/HCPCS: 93005; 93306

== ENCOUNTER → 2025-06-02 13:01 | Outpatient (BNV) | payer SELFPAY | PROVIDERS: PCP Internal Medicine; Visit Provider Internal Medicine | DX: R55 Syncope and collapse (principal); I36.1 Nonrheumatic tricuspid (valve) insufficiency | CPT/HCPCS: 93010; 93306 ==

== ENCOUNTER 2025-08-25 13:42 | Outpatient (AMB) | payer OTHER, SELFPAY ==
--- OUTSIDE RECORDS SUMMARY | 2025-08-24 19:47 | XMS_ITS | Continuity of Care Document ---
Author Organization [facility] Address [address] [place] [address]- Care Team Providers Care Sales Service Promoter Name Role Phone Fermin Hernández MD, Breana Sharif Primary Care Physician [facility] [id number] Date(s): 08/24/25 - 08/24/[address] [address]- Encounter Diagnosis Seizure-like activity(Final) - 08/24/25 Dizziness(Final) - 08/24/25 Nausea and vomiting(Final) - 08/24/25 Discharge Disposition: A-D/C Home Attending Physician: Romana Cisse MD Admitting Physician: Romana Cisse MD Referring Physician: Not on Staff, Referring MD Encounter Type: Disch ES Allergies, Adverse Reactions, Alerts No Known Allergies Medications hydrOXYzine hydrochloride 25 mg oral tablet 1 tablet = 25 mg, By Mouth, Daily, PRN for anxiety, # 40 tablet, 0 Refills, Maintenance, 02/21/24 7:06:00 PM EDT, Tablet, Partial fill upon patient request if the prescription is for a schedule II opioid drug. Start Date: 02/21/24 Status: Ordered Medication Dispense Status: Completed Quantity: 40.0 Unit: tablet Total Allowed Fills: 1 Fills Dispensed: 0 hydrOXYzine pamoate 25 mg oral capsule 1 capsule = 25 mg, By Mouth, 4 times a day, PRN for anxiety, # 30 capsule, 0 Refills, Maintenance, 01/29/25 10:07:00 PM EDT, Capsule, [id number], Partial fill upon patient request if the prescription is for a schedule II opioid drug., 168, cm, 01/29/25 20:44:00 EDT, Height, 54.5, kg, 01/29/25 21:01:00 EDT, Dry Weight Start Date: 01/29/25 Status: Ordered Medication Dispense Status: Completed Quantity: 30.0 Unit: capsule Total Allowed Fills: 1 Fills Dispensed: 0 traZODone 50 mg oral tablet 50 mg, 1, tablet, By Mouth, Daily at bedtime, PRN, TAKE 1 TABLET BY MOUTH AT BEDTIME X90 DAYS, Anxiety Start Date: 01/18/24 Status: Ordered Medication Dispense Status: Completed Total Allowed Fills: 1 Fills Dispensed: 0 Problem List Condition Confirmation Course Effective Dates Status Health St atus Informant COVID-19 1 Confirmed 10/03/22 Active COVID-19 2 Confirmed 09/14/23 Active Dysmenorrhea Confirmed Active Intractable nausea and vomiting Confirmed Active UTI (urinary tract infection) Confirmed Active 1Problem added by Discern Expert 2Problem added by Discern Expert Vital Signs Most recent to oldest [Reference Range]: 1 2 3 Oxygen Saturation [94-100 %] 99 % (08/24/25 4:40 PM) 100 % (08/24/25 2:36 PM) 99 % (08/24/25 8:53 AM) Pulse Rate [55-90 bpm] 73 bpm (08/24/25 4:40 PM) 81 bpm (08/24/25 2:36 PM) 84 bpm (08/24/25 8:53 AM) Blood Pressure [90-138/55-84 mm Hg] 109/74mm Hg (08/24/25 4:40 PM) 94/55mm Hg (08/24/25 2:36 PM) 99/66mm Hg (08/24/25 8:53 AM) Respiratory Rate [16-30 br/min] 19 br/min (08/24/25 4:40 PM) 19 br/min (08/24/25 2:36 PM) 22 br/min (08/24/25 8:53 AM) Temperature [96.8-100.4 DegF] 97.8 DegF (08/24/25 8:53 AM) Mode of Delivery (Oxygen) Room air (08/24/25 4:40 PM) Room air (08/24/25 2:36 PM) Room air (08/24/25 8:53 AM) Social History Social History Type Response Smoking Status Never (less than 100 in lifetime) entered on: 06/19/21 Sex Female Sex Representation Female (finding) EKG study * Event Display: ECG 12-Lead Authored Date: Please click on pdf link to open report * Event Display: ECG 12-Lead Authored Date: Ventricular Rate: 85 BPM Atrial Rate: 85 BPM P-R Interval: 144 ms QRS Duration: 74 ms Q-T Interval: 358 ms QTC Calculation(Bazett): 426 ms P [place]: 78 degrees R [place]: 79 degrees T [place]: 56 degrees Normal sinus rhythm Normal ECG When compared with ECG of 26-Mar-2025 18:45, No significant change was found Confirmed by Riaz Palomares ([id number]) on 08/24/2025 10:16:26 AM Jacob: Riaz Palomares * Event Display: EKG Authored Date: Patient Care team information Care Team Personnel Name: Breana Jama MD Position: Reference Physician Member Role: PCP Address: [address] [place] [address] [address] [address] Telecom: Care Team Related Persons Name: REJI BALDWIN Insurance Providers Guarantor name: REJI BALDWIN Health Plan Information #: 1 Payer: SELF PAY Payer Identifier: NA Member Number: [id number] Group Number: NA Subscriber Identifier: [id number] Relationship to Subscriber: self Coverage Type: Self-pay (Includes applicants for insurance and Medicaid applicants) Coverage Verification Date: NA Telecom: NA Address:
--- NOTE | 2025-08-25 13:44 | MHC.OFFVIS ---
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 she is accompanied by her boyfriend Joe. she started having these episodes about 2 years ago. she feels lightheadness, has tunnel vision and passes out - usually when standing. The loss of consciousness lasts few seconds to minutes -she has headaches and feels tired after the episode but not confused.sometime she has a generalized body shaking few min during syncope and has vomiting. she has headaches - pressure in frontal and gen , light and sound sensitive has nausea and more with eye movement. 1-2 per month , she takes advil PM and sleeps - few hrs to 2 days and espinal ssome visual aura.. No tongue biting , no incontinence. They were frequent 2 mths ago .The episodes are more frequent when she is tired anxious and depressed. she is not sure if it is associated with her periods. she reports febrile seizures as a child. she denies chest pain , palpitations she smokes marijuana from a [facility] Medical History (Updated 08/25/25 @ 14:44 by iMa Kruger MD) Abnormal involuntary movements GERD (gastroesophageal reflux disease) Nausea & vomiting Cyclical vomiting Gastritis Anxiety Surgical History No pertinent past surgical history Family History Father Medical history unknown Mother Medical history unknown Social History Housing: Apartment Unable to assess alcohol history related to: Unknown Alcohol intake: current Alcohol intake frequency: a few times a month Alcohol type: hard liquor Patient Tobacco Use Status: Former Tobacco user e-Cigarette/Vaping Use: Never Used Second Hand Smoke Exposure: Yes Substance Use Type: Marijuana service: No Current occupational status: employed Current occupational exposures/hazards: No Cognitive needs: No Hearing needs: No Vision needs: No Physical Exam Vital Signs: Last Vital Signs Pulse 88 08/25/25 13:45 BP 120/74 08/25/25 13:45 Pulse Ox 100 08/25/25 13:45 Oxygen Delivery Method Room Air 08/25/25 13:45 BMI result Body Mass Index 19.7 Const General: cooperative, healthy appearing and comfortable Nutritional Appearance: average body habitus Orientation/consciousness: patient oriented x3 Eyes Pupils: Equal, round and reactive pupils present Neuro General: patient oriented x3, gait normal, tone normal, moves all extremities and no focal motor deficits Cranial nerves: Yes Facial sensation intact/muscles of mastication intact, Yes Equal, round and reactive pupils present, Yes Bilaterally intact EOM present, Yes Nystagmus not present, Yes Normal facial strength present, Yes Midline tongue present, Yes Symmetric palate elevation present and Yes Ability to bilaterally elevate shoulders present Cognition (Neuro): normal cognition Gait exam (Neuro): Normal gait present Motor exam (neuro): 5/5 motor strength present throughout and Normal motor muscle tone present throughout Deep tendon reflexes (DTR's): Right triceps reflex intensity grade: 2+, Left triceps reflex intensity grade: 2+, Rt Biceps (C5, C6): 2+, Left biceps reflex intensity grade: 2+, Right brachioradialis reflex intensity grade: 2+, Left brachioradialis reflex intensity grade: 2+, Right patellar reflex intensity grade: 1+ and Left patellar reflex intensity grade: 1+ Coordination: [id number] test normal Assessment & Plan Assessment & Plan (1) Syncope: Comment: Migraine related ? vasovagal ? Code(s): R55 - Syncope and collapse Category: Medical Qualifiers: Syncope type: vasovagal syncope Qualified Code(s): R55 - Syncope and collapse (2) Abnormal involuntary movements: Comment: with syncope Code(s): R25.9 - Unspecified abnormal involuntary movements Category: Medical Plan I will evaluate her with EEG MRI brain I will trial her on topiramate 25 mg qhs for migraine prophylaxis and start sumatriptan 50mg as needed for migraine Monitor syncopal episodes Avoid driving Orders: Orders MR head/brain wo con Today R55 - Syncope and collapse EEG Routine Today R55 - Syncope and collapse Medications: New topiramate 25 mg PO BEDTIME 30 tabs 6RF sumatriptan succinate take 1 tab at onset of headache; if no relief may repeat 1 tab after at least 2 hrs; max = 4 tabs/24 hr PO 14 tabs 1RF Coding Level of Care Code New Pt Level 4 (81913) Complex visit Add On G2211 Diagnoses Vasovagal syncope R55 Syncope type: vasovagal syncope Abnormal involuntary movements R25.9
[2025-08-25 13:45] VITALS: BP 120/74; PULSE 88; O2SAT 100; BMI 19.7
--- OUTSIDE RECORDS SUMMARY | 2025-08-25 22:30 | XMS_ITS | Clinical Summary ---
Author Organization [facility] Address [address] [place] [address] Phone Care Team Providers Care Drapery Seamstress Name Role Phone Breana Jama MD Primary [...] ACO ACO [facility] [place] [address] Care Teams Drapery Seamstress Relationship Specialty Start Date End Date Breana Jama MD [address] [place] [address] PCP - General Internal Medicine 06/23/19 Additional Source Comments The information contained in this document represents components of the legal health record. It is not the complete legal health record.[facility]
--- OUTSIDE RECORDS SUMMARY | 2025-08-25 22:30 | XMS_ITS | Clinical Summary ---
Author Organization [place] [address] [address] [facility]ly [facility] Building Address [address] [place] [phone] Phone Care Team Providers Care Swatch Folder Name Role Phone Martín You MD Primary Care Provider [phone] Allergies Active Allergy Reactions Criticality Noted Date [...] 01/13/2025 1:10 PM EDT Plan of Treatment Upcoming Encounters Date Type Department Care Team (Late st Contact Info) Description 09/04/2025 4:00 PM EST Office Visit Obst[facility]s [facility] [address] [facility] [place] [phone] Kathy Marina DO [address], [place] Health Maintenance Due Date Last Done Comments DTaP,Tdap,and Td Vaccines (6 - Tdap) 2004 01/27/1999, 03/18/1995, 1994, Additional history exists HPV Vaccines (1 - 3-dose SCDM series) 2020 HIV Screening 08/27/2022 Hepatitis C Screening 08/27/2022 Social Influencers of Health Screening 08/27/2022 Depression Screening 2024 COVID-19 Vaccine ( season) 2025 Influenza Vaccine (#1) 2025 Cervical Cancer Screening: HPV 01/13/2030 01/13/2025 RSV Immunization Adult Patients (1 - 1-dose 75+ series) 2068 Hepatitis B Vaccines Completed 05/19/1994, 1993, 1993 [...] LAB MICROBIOLOGY METHOD 01/14/2025 1:16 PM EDT [facility] Brushing/Spatula Cervix uteri structure / Unknown 01/13/2025 2:14 PM EDT 01/14/2025 6:26 AM EDT us Angel[facility] MOLECULAR DIAGNOSTICS OR DERABLES Final Result [facility] [address] [place] [address], from Last 3 Months or Most Recently Relevant to Health Maintenance Insurance [facility] Care Teams Swatch Folder Relationship Specialty Start Date End Date Martín You MD [address] [place] [address] [address] [facility] [place] [address] PCP - General Internal Medicine 06/18/19
--- OUTSIDE RECORDS SUMMARY | 2025-08-25 22:30 | XMS_ITS | Encounter Summary ---
Author Organization [facility] Address [address] [place] [address] Phone Care Team Providers Care Risk Management Internship Name Role Phone Inna Barroso MD Primary Care Provider [phone] Encounter Details Date Type Department Care Team (Late st Contact Info) Description 05/04/2017 Conversion Encounter [facility] [place] [address] [place] [address] Social History Tobacco Use Types Packs/Day Years [...] on filedocumented in this encounter Care Teams Risk Management Internship Relationship Specialty Start Date End Date Inna Barroso MD [address] [place] [address] PCP - General 04/28/17 12/20/22 documented as of this encounter
--- OUTSIDE RECORDS SUMMARY | 2025-08-25 22:30 | XMS_ITS | Clinical Summary ---
Author Organization [facility] Address [address] [place] [phone] Phone Care Team Providers Care Track Worker Name Role Phone Unavailable Primary Care Provider [...] 2020 Influenza Vaccines (#1) 2025 COVID-19 Vaccine (2024- season) 2025 Hepatitis B Vaccines Completed 05/19/1994, [...]
== END 2025-08-25 14:51 | disposition home or self-care (01) ==
LOC: HO.HSMS 13:43
PROVIDERS: Absent Provider Psychiatry & Neurology Neurology; PCP Internal Medicine; Visit Provider Psychiatry & Neurology Neurology
DX: R55 Syncope and collapse (principal); R25.9 Unspecified abnormal involuntary movements
CPT/HCPCS: 99204

== ENCOUNTER → 2025-08-25 13:42 | Outpatient (BNVA) | payer MEDICAID, SELFPAY | PROVIDERS: Absent Provider Psychiatry & Neurology Neurology; PCP Internal Medicine; Visit Provider Psychiatry & Neurology Neurology | DX: R55 Syncope and collapse (principal); R25.9 Unspecified abnormal involuntary movements | CPT/HCPCS: 99202 ==